=== PATIENT | female | born 1965 | race Caucasian/White ===

== ENCOUNTER → 2016-09-21 | Outpatient (CLI) | payer BC, OTHER ==
[~2016-09-21] MED LIST: AMIL5TAB15 PO; BREX1TAB4 PO; LAMO200T38 PO; LEVO100T7 PO; LTHSR/300 PO; OLAN1TAB5 PO; RANI300T PO; TRAM-10 PO
== END | disposition home or self-care (01) ==
LOC: C.LABBC 09:50
PROVIDERS: ATTEND Psychiatry & Neurology Psychiatry
DX: F31.9 Bipolar disorder, unspecified (principal)

== ENCOUNTER → 2016-11-16 | Outpatient (CLI) | payer BC, OTHER ==
[2016-11-16 10:51] LABS: BASO % 0.3 %; BASO ABS # 0.02 K/uL (0-0.2); COMPLETE YES; EOS % 1.3 %; HEMATOCRIT 36.9 % (37-47); IG% 0.2 %; LYMPH % 29.8 %; LYMPH ABS # 1.81 K/uL (1.2-3.4); MEAN CELL VOLUME 88.9 fL (80-100); MEAN CORPUSCULAR HEMOGLOBIN 29.4 pg (25-34); MEAN CORPUSCULAR HGB CONC 33.1 g/dl (32-36); MEAN PLATELET VOLUME 9.7 fL (7.4-10.4); MONO % 7.4 %; PLATELET COUNT 297 K/uL (130-400); RED BLOOD COUNT 4.15 M/uL (4.2-5.4); WHITE BLOOD COUNT 6.08 K/uL (4.8-10.8)
[2016-11-16 11:11] LABS: ALT/SGPT 27 U/L (12-78); AST/SGOT 14 U/L (15-37); BLOOD UREA NITROGEN 11 mg/dl (7-18); BUN/CREATININE RATIO 7.5 (10-20); CALCIUM 9.4 mg/dl (8.5-10.1); CARBON DIOXIDE 30 mmol/L (21-32); CHLORIDE 108 mmol/L (98-107); GLUCOSE 102 mg/dl (70-99); POTASSIUM 3.9 mmol/L (3.5-5.1); SODIUM 144 mmol/L (136-145)
[2016-11-16 11:22] LABS: CHOLESTEROL 139 mg/dl (0-200); CHOLESTEROL/HDL RATIO 3.2; FERRITIN 409.5 ng/ml (8.0-388.0); HDL CHOLESTEROL 44 mg/dl; LDL CHOLESTEROL CALCULATED 56 mg/dl; THYROID STIMULATING HORMONE 0.198 uIu/ml (0.300-4.500); TRIGLYCERIDES 197 mg/dl (0-150); VERY LOW DENSITY LIPOPROT CALC 39 mg/dl
== END | disposition home or self-care (01) ==
LOC: C.LABBC 10:04
DX: E88.81 Metabolic syndrome and other insulin resistance (principal); E78.5 Hyperlipidemia, unspecified; E03.9 Hypothyroidism, unspecified; N18.3 Chronic kidney disease, stage 3 (moderate); E55.9 Vitamin D deficiency, unspecified; D64.9 Anemia, unspecified

== ENCOUNTER → 2016-11-30 | Outpatient (CLI) | payer BC, OTHER ==
[2016-11-30 13:09] LABS: HEMATOCRIT 38.5 % (37-47); MEAN CELL VOLUME 89.5 fL (80-100); MEAN CORPUSCULAR HEMOGLOBIN 29.5 pg (25-34); MEAN PLATELET VOLUME 9.7 fL (7.4-10.4); PLATELET COUNT 326 K/uL (130-400); WHITE BLOOD COUNT 7.37 K/uL (4.8-10.8)
[2016-11-30 13:23] LABS: BLOOD UREA NITROGEN 14 mg/dl (7-18); BUN/CREATININE RATIO 9.5 (10-20); CALCIUM 9.7 mg/dl (8.5-10.1); CARBON DIOXIDE 27 mmol/L (21-32); CHLORIDE 109 mmol/L (98-107); GLUCOSE 103 mg/dl (70-99); PHOSPHORUS 3.3 mg/dl (2.5-4.9); SODIUM 141 mmol/L (136-145)
[2016-11-30 13:25] LABS: URINE PROTIEN/CREAT RATIO 0.2 (0-0.2); URINE TOTAL PROTEIN 9.6 mg/dl (0-11.9)
[2016-11-30 13:39] LABS: MANUAL MICROSCOPIC REQUIRED? NO; REVIEW REQ? NO; URINE APPEARANCE CLEAR (CLEAR); URINE BILIRUBIN NEG (NEG); URINE COLOR YELLOW; URINE EPITHELIAL CELL AUTO 20-30 /lpf (0-5); URINE NITRITE NEG (NEG); URINE PH 7.5 (4.5-7.5); UROBILINOGEN NEG (NEG)
== END | disposition home or self-care (01) ==
LOC: C.LABBC 11:17
PROVIDERS: ATTEND Internal Medicine Nephrology
DX: E55.9 Vitamin D deficiency, unspecified (principal); D64.9 Anemia, unspecified; N18.3 Chronic kidney disease, stage 3 (moderate)

== ENCOUNTER → 2016-12-09 | Outpatient (CLI) | payer BC, OTHER | END | disposition home or self-care (01) | LOC: C.LABBC 09:20 | PROVIDERS: ATTEND Psychiatry & Neurology Psychiatry | DX: F31.9 Bipolar disorder, unspecified (principal) ==

== ENCOUNTER → 2017-04-10 | Outpatient (CLI) | payer BC, OTHER | END | disposition home or self-care (01) | LOC: C.CPL 11:15 | PROVIDERS: ATTEND Psychiatry & Neurology Psychiatry | DX: F31.9 Bipolar disorder, unspecified (principal); Z79.899 Other long term (current) drug therapy ==

== ENCOUNTER → 2017-05-02 | Outpatient (CLI) | payer BC, OTHER ==
[2017-05-02 13:43] LABS: ALB/GLOB RATIO 1.1 (0.9-2); ALKALINE PHOSPHATASE 96 U/L (45-117); ALT/SGPT 25 U/L (12-78); AST/SGOT 17 U/L (15-37); BLOOD UREA NITROGEN 14 mg/dl (7-18); BUN/CREATININE RATIO 9.3 (10-20); CALCIUM 9.6 mg/dl (8.5-10.1); CARBON DIOXIDE 27 mmol/L (21-32); CHLORIDE 109 mmol/L (98-107); GLUCOSE 137 mg/dl (70-99); SODIUM 142 mmol/L (136-145)
== END | disposition home or self-care (01) ==
LOC: C.LAB 12:08
PROVIDERS: ATTEND Psychiatry & Neurology Psychiatry
DX: F31.9 Bipolar disorder, unspecified (principal); Z51.81 Encounter for therapeutic drug level monitoring; Z79.899 Other long term (current) drug therapy

== ENCOUNTER → 2017-06-02 | Outpatient (CLI) | payer BC, OTHER | END | disposition home or self-care (01) | LOC: C.PATH 17:16 | PROVIDERS: ATTEND Obstetrics & Gynecology | DX: N84.1 Polyp of cervix uteri (principal) ==

== ENCOUNTER → 2017-06-21 | Outpatient (CLI) | payer BC, OTHER ==
[2017-06-21 12:55] LABS: HEMATOCRIT 37.6 % (37-47); MEAN CELL VOLUME 89.1 fL (80-100); MEAN CORPUSCULAR HEMOGLOBIN 29.9 pg (25-34); MEAN CORPUSCULAR HGB CONC 33.5 g/dl (32-36); MEAN PLATELET VOLUME 9.7 fL (7.4-10.4); PLATELET COUNT 253 K/uL (130-400); RED BLOOD COUNT 4.22 M/uL (4.2-5.4); WHITE BLOOD COUNT 7.05 K/uL (4.8-10.8)
[2017-06-21 13:02] LABS: ALT/SGPT 21 U/L (12-78); BLOOD UREA NITROGEN 17 mg/dl (7-18); BUN/CREATININE RATIO 10.9 (10-20); CALCIUM 9.4 mg/dl (8.5-10.1); CARBON DIOXIDE 27 mmol/L (21-32); CREATININE 1.52 mg/dl (0.60-1.20); GLUCOSE 113 mg/dl (70-99)
[2017-06-21 13:45] LABS: ALKALINE PHOSPHATASE 81 U/L (45-117); AST/SGOT 16 U/L (15-37); CHLORIDE 106 mmol/L (98-107); POTASSIUM 3.9 mmol/L (3.5-5.1); SODIUM 142 mmol/L (136-145)
== END | disposition home or self-care (01) ==
LOC: C.LABBC 10:33
PROVIDERS: ATTEND Internal Medicine Nephrology
DX: N18.3 Chronic kidney disease, stage 3 (moderate) (principal); R35.8 Other polyuria; D64.9 Anemia, unspecified; E55.9 Vitamin D deficiency, unspecified

== ENCOUNTER 2017-11-12 13:03 | Emergency (ER) | payer BC, OTHER ==
[~2017-11-12 13:03] MED LIST changes: +LAMO200T35 PO; -LAMO200T38 PO
[2017-11-12 13:23] VITALS: TEMP 36.8
[2017-11-12] MEDS ORDERED: ASPI325T39 PO (14:08)
[2017-11-12] MEDS ORDERED: RSP2 PO (14:08)
[2017-11-12 14:32] LABS: BASO % 0.4 %; BASO ABS # 0.02 K/uL (0-0.2); EOS % 0.4 %; EOS ABS # 0.02 K/uL (0-0.5); HEMATOCRIT 38.2 % (37-47); HEMOGLOBIN 12.9 g/dL (12.0-16.0); IG# 0.02 K/uL (0.00-0.02); LYMPH ABS # 1.42 K/uL (1.2-3.4); MEAN CELL VOLUME 86.4 fL (80-100); MEAN CORPUSCULAR HEMOGLOBIN 29.2 pg (25-34); MEAN CORPUSCULAR HGB CONC 33.8 g/dl (32-36); MEAN PLATELET VOLUME 9.5 fL (7.4-10.4); MONO ABS # 0.44 K/uL (0.11-0.59); NEUT % 64.8 %; NEUT ABS # 3.55 K/uL (1.4-6.5); PLATELET COUNT 258 K/uL (130-400); RED CELL DISTRIBUTION WIDTH CV 13.1 % (11.5-14.5); RED CELL DISTRIBUTION WIDTH SD 41.7 fL (36.4-46.3); WHITE BLOOD COUNT 5.47 K/uL (4.8-10.8)
[2017-11-12 14:50] LABS: ALBUMIN 4.2 gm/dl (3.4-5.0); ALT/SGPT 24 U/L (12-78); AST/SGOT 16 U/L (15-37); BLOOD UREA NITROGEN 14 mg/dl (7-18); CALCIUM 9.2 mg/dl (8.5-10.1); CARBON DIOXIDE 23 mmol/L (21-32); GLUCOSE 122 mg/dl (70-99); POTASSIUM 3.5 mmol/L (3.5-5.1); SODIUM 141 mmol/L (136-145)
[2017-11-12 15:00] LABS: ALKALINE PHOSPHATASE 86 U/L (45-117); TOTAL PROTEIN 7.9 gm/dl (6.4-8.2)
--- NOTE | 2017-11-12 16:54 | EMERGENCY ROOM VISIT NOTE ---
History Report prepared by Atif: Oswaldo Heredia Under the Supervision of: Dr. Howie Russell M.D. First contact with patient: 13:29 Chief Complaint: MENTAL HEALTH EVALUATION Stated Complaint: ANXIETY,SUICIDAL THOUGHTS History of Present Illness The patient is a 52 year old female who presents to the Emergency Room after referral from her psychiatrist Dr. Fraser, with concern of her worsening mental status for the past week. Per the [facility], the patient visited with Dr. Fraser today and noted that she was "having battles within herself about if she should overdose on her medications or not." These thoughts were present yesterday. The patient admits that she stopped taking her medications 6-7 weeks ago. She stopped taking them because she notes that she was not feeling better while taking them. She stopped all of her medications, and then resumed The Lamictal and Respiradone the next day. She is still not taking her [place]. The patient notes that she is not currently having thoughts of hurting herself, and that she is willing to come into the hospital voluntarily. She denies any other physical symptoms such as chest pain, shortness of breath, nausea, vomiting, diarrhea, or cough. Dr. Fraser does believe the patient needs an inpatient stay. Source of History: patient, other ([facility] [employer]) Onset: Past week Position: head Quality: other (Mental status/suicidal thoughts) Timing: worsening Associated Symptoms: No cough, No chest pain, No SOB, No nausea, No vomiting , No diarrhea Review of Systems See HPI for pertinent positives and negatives. A total of ten systems were reviewed and were otherwise negative. Past Medical & Surgical Medical Problems: (1) Bipolar disorder (2) Borderline personality disorder (3) Esophageal Reflux (4) Hypothyroidism Nos (5) Macular degeneration (6) Sleep apnea Surgical Problems: (1) H/O section (2) S/P cholecystectomy Family History FH: bipolar disorder FH: heart disease FHx: cancer Hypertension Social History Smoking Status: Never Smoker Marital Status: Occupation Status: employed Current/Historical Medications Scheduled Amiloride Hcl (Amiloride Hcl), 5 MG PO DAILY Aspirin (Aspirin Ec), 325 MG PO DAILY Lamotrigine (Lamictal), 200 MG PO QAM Levothyroxine Sodium (Levothyroxine Sodium), 100 MCG PO DAILY Ranitidine Hcl (Zantac), 300 MG PO BID Risperidone (Risperidone), 3 MG PO HS Tramadol (Ultram), 50 MG PO HS Allergies Coded Allergies: Gabapentin (Verified Allergy, Unknown, makes her manic, 01/14/16) Physical Exam Vital Signs Date Time Temp Pulse Resp B/P (MAP) Pulse Ox O2 Delivery O2 Flow Rate FiO2 11/12/17 15:59 81 15 128/78 97 Room Air 11/12/17 13:23 36.8 94 20 98 Physical Exam GENERAL: Awake, alert, anxious-appearing, makes poor eye contact. HENT: Normocephalic, atraumatic. Dry MM. EYES: Normal conjunctiva. Sclera non-icteric. NECK: Supple. No nuchal rigidity. FROM. No JVD. RESPIRATORY: Clear to auscultation. CARDIAC: Regular rate, normal rhythm. Extremities warm and well perfused. Pulses equal. ABDOMEN: Soft, non-distended. No tenderness to palpation. No rebound or guarding. No masses. RECTAL: Deferred. MUSCULOSKELETAL: Chest examination reveals no tenderness. The back is symmetrical on inspection without obvious abnormality. There is no CVA tenderness to palpation. No joint edema. LOWER EXTREMITIES: Calves are equal size bilaterally and non-tender. No edema. No discoloration. NEURO: Normal sensorium. No sensory or motor deficits noted. SKIN: No rash or jaundice noted. PSYCH: Positive SI, Negative HI, Negative hallucinations. Medical Decision & Procedures Laboratory Results 11/12/17 14:19 Red Blood Count 4.42, Mean Corpuscular Volume 86.4, Mean Corpuscular Hemoglobin 29.2, Mean Corpuscular Hemoglobin Concent 33.8, Mean Platelet Volume 9.5, Neutrophils (%) (Auto) 64.8, Lymphocytes (%) (Auto) 26.0, Monocytes (%) (Auto) 8.0, Eosinophils (%) (Auto) 0.4, Basophils (%) (Auto) 0.4, Neutrophils # (Auto) 3.55, Lymphocytes # (Auto) 1.42, Monocytes # (Auto) 0.44, Eosinophils # (Auto) 0.02, Basophils # (Auto) 0.02 11/12/17 14:19 Test 11/12/17 14:19 11/12/17 14:23 11/12/17 16:27 White Blood Count 5.47 K/uL (4.8-10.8) Red Blood Count 4.42 M/uL (4.2-5.4) Hemoglobin 12.9 g/dL (12.0-16.0) Hematocrit 38.2 % (37-47) Mean Corpuscular Volume 86.4 fL (80-100) Mean Corpuscular Hemoglobin 29.2 pg (25-34) Mean Corpuscular Hemoglobin Concent 33.8 g/dl (32-36) Platelet Count 258 K/uL (130-400) Mean Platelet Volume 9.5 fL (7.4-10.4) Neutrophils (%) (Auto) 64.8 % Lymphocytes (%) (Auto) 26.0 % Monocytes (%) (Auto) 8.0 % Eosinophils (%) (Auto) 0.4 % Basophils (%) (Auto) 0.4 % Neutrophils # (Auto) 3.55 K/uL (1.4-6.5) Lymphocytes # (Auto) 1.42 K/uL (1.2-3.4) Monocytes # (Auto) 0.44 K/uL (0.11-0.59) Eosinophils # (Auto) 0.02 K/uL (0-0.5) Basophils # (Auto) 0.02 K/uL (0-0.2) RDW Standard Deviation 41.7 fL (36.4-46.3) RDW Coefficient of Variation 13.1 % (11.5-14.5) Immature Granulocyte % (Auto) 0.4 % Immature Granulocyte # (Auto) 0.02 K/uL (0.00-0.02) Anion Gap 8.0 mmol/L (3-11) Estimated GFR () 50.6 Estimated GFR (Non- 43.7 BUN/Creatinine Ratio 10.0 (10-20) Calcium Level 9.2 mg/dl (8.5-10.1) Total Bilirubin 0.3 mg/dl (0.2-1) Direct Bilirubin < 0.1 mg/dl (0-0.2) Aspartate Amino Transf (AST/SGOT) 16 U/L (15-37) Alanine Aminotransferase (ALT/SGPT) 24 U/L (12-78) Alkaline Phosphatase 86 U/L (45-117) Total Protein 7.9 gm/dl (6.4-8.2) Albumin 4.2 gm/dl (3.4-5.0) Globulin 3.7 gm/dl (2.5-4.0) Albumin/Globulin Ratio 1.1 (0.9-2) Thyroid Stimulating Hormone (TSH) 0.047 uIu/ml (0.300-4.500) Free Thyroxine 1.42 ng/dl (0.80-1.60) [place] Level < 0.2 mMOL/L (0.6-1.2) Ethyl Alcohol mg/dL < 3.0 mg/dl (0-3) Free Triiodothyronine 3.60 pg/ml (2.30-4.20) Urine Color YELLOW Urine Appearance CLEAR (CLEAR) Urine pH 5.5 (4.5-7.5) Urine Specific [place] 1.011 (1.000-1.030) Urine Protein NEG (NEG) Urine Glucose (UA) NEG (NEG) Urine Ketones NEG (NEG) Urine Occult Blood NEG (NEG) Urine Nitrite NEG (NEG) Urine Bilirubin NEG (NEG) Urine Urobilinogen NEG (NEG) Urine Leukocyte Esterase SMALL (NEG) Urine WBC (Auto) 1-5 /hpf (0-5) Urine RBC (Auto) 0-4 /hpf (0-4) Urine Hyaline Casts (Auto) 0 /lpf (0-5) Urine Epithelial Cells (Auto) 20-30 /lpf (0-5) Urine Bacteria (Auto) NEG (NEG) Urine Opiates Screen NEG (NEG) Urine Methadone, Qualitative NEG (NEG) Urine Barbiturates NEG (NEG) Urine Phencyclidine (PCP) Level NEG (NEG) Ur Amphetamine/Methamphetamine NEG (NEG) MDMA (Ecstasy) Screen NEG (NEG) Urine Benzodiazepines Screen NEG (NEG) Urine Cocaine Metabolite NEG (NEG) Urine Marijuana (THC) NEG (NEG) Laboratory results reviewed by pa ED Course 1335: The patient was evaluated in room A5. A complete history and physical exam was performed. 1700: Patient has been medically cleared. The patient will be evaluated by the [facility] and a bedsearch will ensue. 1800: The patient will be signed out to Dr. Estrada at change of shift. Medical Decision I reviewed the patient's past medical history, medications, and the nursing notes as described above. Differential diagnosis: Etiologies such as mood disorder, infection, hypoglycemia, electrolyte abnormalities, cardiac sources, intracerebral event, toxicologic, neurologic, as well as others were entertained. The patient is a 54-year-old woman with a past medical history of bipolar disorder who presents emergency department with worsening depression and intermittent SI sent by her outpatient provider concern for worsening functional status in the setting of being noncompliant with her medications for several weeks per hpi. The patient is anxious appearing with poor eye contact, no acute distress afebrile stable vital signs. Labs unremarkable. Patient reports intermittent suicidal thoughts but denies any clear plan to act these out. the patient's worsening symptoms and inpatient psychiatric admission is reasonable. She is agreeable for voluntary admission. [place] referral pending. Of note, given the patient's recurring SI in the setting of her BPD, patient would meet criteria for 302 if she changes her mind. Patient signed out to Dr. Estrada. Medication Reconcilliation Current Medication List: was personally reviewed by me Blood Pressure Screening Patient's blood pressure: Normal blood pressure Impression Primary Impression: Suicidal ideation Additional Impression: Bipolar disorder Scribe Attestation The scribe's documentation has been prepared under my direction and personally reviewed by me in its entirety. I confirm that the note above accurately reflects all work, treatment, procedures, and medical decision making performed by me. Departure Information Dispostion Still a Patient Referrals Kolby Saenz Jr,D.O. (PCP) Patient Instructions [facility] Problem Qualifiers
--- NOTE | 2017-11-12 19:15 | EMERGENCY ROOM VISIT NOTE ---
ED Visit Note First contact with patient: 19:14 The patient was taken in signout from Dr. nielsen at the change of shift. Please see that note for details. The patient was pending psychiatric voluntary placement. The patient was accepted voluntarily. She was given her evening medications of tramadol, Risperdal and she also requested her Zantac. Her time in the emergency department was uneventful. There were no issues. The patient was transferred.
[2017-11-12] MEDS ORDERED: TRAMADOL HCL 50 MG TAB PO STA (23:44)
[2017-11-12] MEDS ORDERED: RANITIDINE HCL 150 MG TAB PO ONE (23:45)
[2017-11-12] MEDS ORDERED: RISPERIDONE 1 MG TAB PO ONE (23:45)
[2017-11-13 00:09] VITALS: BP 144/85; PULSE 87; O2SAT 97
== END 2017-11-13 00:05 | disposition short-term general hospital (02) ==
LOC: C.EDB 13:04 → C.EDA 11-13 00:05
DX: R45.851 Suicidal ideations (principal); F31.9 Bipolar disorder, unspecified; E03.9 Hypothyroidism, unspecified; G47.30 Sleep apnea, unspecified; Z79.82 Long term (current) use of aspirin; K21.9 Gastro-esophageal reflux disease without esophagitis; Z88.8 Allergy status to other drugs, medicaments and biological substances

== ENCOUNTER → 2017-11-27 | Outpatient (CLI) | payer BC, OTHER ==
[~2017-11-27] MED LIST changes: +ASPI325T39 PO; -BREX1TAB4 PO; -LTHSR/300 PO; -OLAN1TAB5 PO; +RSP2 PO
--- NOTE | 2017-11-27 17:44 | DIAGNOSTIC IMAGING REPORT ---
MRI OF THE BRAIN WITHOUT IV CONTRAST CLINICAL HISTORY: Generalized weakness. COMPARISON STUDY: MRI of the brain dated 06/15/2015. TECHNIQUE: MRI of the brain was performed utilizing various T1 and T2-weighted sequences in the axial, sagittal, and coronal planes. IV contrast was not administered for this examination. FINDINGS: Brain parenchyma: There is minimal periventricular microangiopathic change. There is no hemorrhage or mass effect. There is no restricted diffusion to suggest acute ischemia. [place]-white matter differentiation is preserved. No extra-axial fluid collection is seen. The cerebellar tonsils are normal in configuration. Ventricles, sulci, and cisterns: Normal in configuration. Pituitary and sella: Unremarkable. Intracranial vasculature: Normal flow voids are maintained at the skull base. Orbits: The bony orbits are grossly intact. Orbital contents are normal in appearance. Sinuses and mastoids: Clear. Calvarium: Unremarkable. Cervical cord: Partially visualized cervical spinal cord is normal in morphology and signal intensity. IMPRESSION: No acute intracranial abnormality. Electronically signed by: Kevin Brady M.D. 11/27/2017 5:43 PM Dictated Date/Time: 11/27/2017 5:30 PM
== END | disposition home or self-care (01) ==
LOC: C.MRIBC 16:46
DX: M62.81 Muscle weakness (generalized) (principal); R20.2 Paresthesia of skin

== ENCOUNTER → 2017-12-16 | Outpatient (CLI) | payer BC, OTHER ==
--- NOTE | 2017-12-17 14:20 | MAMMOGRAPHY REPORT ---
BILATERAL DIGITAL SCREENING MAMMOGRAM TOMOSYNTHESIS WITH CAD: 12/16/2017 CLINICAL HISTORY: Routine screening. Patient has no complaints. TECHNIQUE: Breast tomosynthesis in addition to standard 2D mammography was performed. Current study was also evaluated with a Computer Aided Detection (CAD) system. COMPARISON: Comparison is made to exams dated: 07/30/2013 mammogram, 05/29/2011 ultrasound, 05/23/2011 mammogram - [facility], 05/01/2007, and 04/28/2007. BREAST COMPOSITION: The tissue of both breasts is heterogeneously dense, which may obscure small mas ses. FINDINGS: There is a possible cluster of microcalcifications in the 6:00 to 7:00 middle one third of the left breast for which additional spot magnification views are recommended. There are multiple bilateral circumscribed masses scattered in the breasts, most likely representing fibrocystic change/multiple cysts which is a typically benign mammographic pattern. No suspicious spi culated or irregular mass, asymmetry or architectural distortion identified. IMPRESSION: ACR BI-RADS CATEGORY 0: INCOMPLETE EVALUATION: NEED ADDITIONAL IMAGING EVALUATION The possible cluster of microcalcifications in the 6:00 to 7:00 left breast needs additional evaluati on. The patient will be called to schedule an appointment. Approximately 10% of breast cancers are not detected with mammography. A negative mammographic report should not delay biopsy if a clinically suggestive mass is present. Starla Nobles M.D. ay/:12/16/2017 19:56:58 Clay Thrower: Brianna MONTANEZ)(Darci), [facility] letter sent: Addl Imaging 0 BI-RADS Code: ACR BI-RADS Category 0: Incomplete Evaluation: Need Additional Imaging Evaluation
== END | disposition home or self-care (01) ==
LOC: C.MAMM 10:20
DX: Z12.31 Encounter for screening mammogram for malignant neoplasm of breast (principal); N64.89 Other specified disorders of breast

== ENCOUNTER 2023-01-16 12:53 | Inpatient (IN) ==
[2023-01-16 13:39] LABS: Appearance Urine Clear (Clear); Bilirubin Urine Negative (Negative); Blood Urine Negative (Negative); Color Urine Yellow; Glucose Urine UA Negative (Negative); Ketones Urine Negative (Negative); Leukocyte Esterase Urine Negative (Negative); Nitrite Urine Negative (Negative); Protein Urine Negative (Negative); Specific Gravity Urine 1.012 (1.000-1.030); Urobilinogen Urine Negative (Negative)
[2023-01-16] MEDS ORDERED: LORazepam 1 MG TAB SL STA (13:47)
[2023-01-16 14:22] LABS: Amphetamines+Metham, Urine Neg (Neg); Barbiturates, Urine Neg (Neg); Benzodiazepine, Urine Neg (Neg); Cocaine, Urine Neg (Neg); MDMA (Ecstacy), Urine Neg (Neg); Methadone, Urine Neg (Neg); Opiate, Urine Neg (Neg); Phencyclidine, Urine Neg (Neg)
--- NOTE | 2023-01-16 14:39 | Emergency Department Note ---
History of Present Illness General Chief complaint: Mental Health Evaluation Stated complaint: AGITATED,TROUBLE SLEEPING Time Seen by Provider: 01/16/23 13:18 History of Present Illness Provider complaint: Mental health evaluation Onset (ago): month(s) 2 Maximum Pain Intensity: 2 58-year-old female presents emergency department for mental health evaluation. Patient reports she has been increasingly agitated over the last 2 months. She reports she has been having several medication changes over the last 2 months. She was referred here by her psychiatrist. Patient denies any suicidal or homicidal ideation. Home Medications Medication Instructions Recorded Confirmed Type levothyroxine 50 mcg tablet 50 mcg PO DAILY 05/18/19 01/15/23 History lumateperone 42 mg capsule 42 mg PO DAILY 03/30/20 01/15/23 History (Caplyta) prazosin 2 mg capsule 3 mg PO QPM 04/04/21 01/15/23 History hydroxyzine pamoate 25 mg capsule 25 mg PO BID PRN Anxiety 08/29/21 01/15/23 History (Vistaril) lamotrigine 200 mg tablet 200 mg PO PM 08/29/21 01/15/23 History lamotrigine 25 mg tablet 50 mg PO .am 08/29/21 01/15/23 History diclofenac sodium 1 % topical gel 2 g topical QID #100 grams 03/14/22 01/15/23 Rx lorazepam 0.5 mg tablet (Ativan) 0.5 mg PO Q8H PRN Anxiety 08/07/22 01/15/23 History linaclotide 145 mcg capsule 145 mcg PO DAILY PRN constipation 09/10/22 01/15/23 Rx (Linzess) #30 caps ferrous sulfate 325 mg (65 mg 325 mg PO .COMPLEX #30 tabs 11/05/22 01/15/23 Rx iron) tablet peg 3350-electrolytes 236 240 ml PO Q10M #4,000 mL 11/26/22 01/15/23 Rx gram-22.74 gram-6.74 gram-5.86 gram solution (GaviLyte-G) vibegron 75 mg tablet (Gemtesa) 75 mg PO DAILY #90 tabs 11/28/22 01/15/23 Rx Magic Mouthwash 300 mL mouthwash 5 ml mucous membrane .q 4 hours 12/26/22 01/15/23 Rx PRN sores in mouth #300 mL tramadol 50 mg tablet 100 mg PO HS 30 days #60 tabs 01/03/23 01/15/23 Rx Allergies Allergy/AdvReac Type Severity Reaction Status Date / Time gabapentin Allergy Unknown makes her Verified 01/08/23 11:27 manic Latuda TABS Allergy Mild Hallucinati Uncoded 01/08/23 11:27 ng SEROquel XR TB24 Allergy Uncoded 01/08/23 11:27 Past Med/Surg History Medical History Cholecystectomy planned Chronic kidney disease, stage III (moderate) GERD (gastroesophageal reflux disease) Hypothyroidism MONICO (obstructive sleep apnea) RLS (restless legs syndrome) Schizophrenia, paranoid, chronic with acute exacerbation Vitamin D deficiency Surgical History History of delivery History of tonsillectomy [place] teeth extracted Family History Father Hypertension Heart disease Mother Afib Stroke Crohn's disease Breast cancer Alzheimer disease Grandfather Stroke Prostate cancer Skin cancer (melanoma) Grandmother Cancer blood cancer Bipolar disorder Grandmother (Maternal) Alzheimer disease Breast cancer Grandfather (Paternal) Hypertension Stroke Grandfather (Maternal) Lung cancer Prostate cancer Skin cancer (melanoma) Denies family history of Ovarian cancer Diabetes Myocardial infarction Colorectal cancer Social History Smoking Status: Never smoker Second Hand Exposure: No; Do You Dip or Chew Tobacco: No; Hx Alcohol Use: No Hx Substance Use: No Preferred Language: [place] Communication Ability: Effective Visual Impairment: Limited Hearing Ability: Normal marital status: Current Living Situation: Alone current occupational status: employed current occupation: [employer] How many Children do You have: 2 Feels Safe at Home: Yes Childhood Exposure to Second-Hand Smoke: No Diet: regular caffeine: No Dental Care, Regularly: No Physical Activity Frequency: Does not Exercise Seatbelt Use: always Sunscreen Use: Yes (sometimes) Gender Identity: Female Assistive Devices: Glasses Physical Exam Vital Signs Vital Signs - 24 hr 01/16/23 12:55 01/16/23 12:53 Temperature 37.0 C Temperature Source Skin Pulse Rate 130 H Respiratory Rate 20 Blood Pressure 151/79 H Blood Pressure Mean 103 Pulse Oximetry 98 Oxygen Delivery Method Room Air Room Air Sepsis Recent Fever Within 48 Hours No Sepsis New/Unexplained Change in Mental Status No Sepsis Action Taken by Nursing No Action Required Physical Exam HENT: Exam performed. - Head: Normocephalic and atraumatic. EYES: Conjunctivae and EOM are normal. Right eye exhibits no discharge. Left eye exhibits no discharge. No scleral icterus. NECK: Normal range of motion. Neck supple. No JVD present. NEURO: Motor and sensation grossly intact. SKIN: Skin is warm and dry. He is not diaphoretic. PSYCH: Patient appears very angry and agitated. No suicidal homicidal ideation. Course Course 1318: The patient was evaluated in room A6. A complete history and physical exam was performed 1621: Patient medically cleared patient admitted to 3 S. Administered Medications Discontinued Medications Lorazepam (Lorazepam 1 Mg Tab) 1 mg SL NOW STA Stop: 01/16/23 13:48 Last Admin: 01/16/23 13:58 Dose: 1 mg Documented By: HAO Medical Decision Making Medical Records Attestation: I reviewed the patient's medical records. External medical records reviewed. Patient was seen in the emergency department yesterday for a mental health evaluation also. The patient was evaluated by the mental health rehabilitation case coordinator and felt to be a good patient for inpatient management but the patient became frustrated with no psychiatric bed was available and became frustrated with the bed search process and requested discharge and the patient was discharged in stable condition last night. Laboratory Data Attestation: I reviewed the patient's lab results. 01/16/23 14:37 01/16/23 14:37 Lab Results 01/16/23 01/16/23 01/16/23 Range/Units 13:10 13:10 14:37 WBC 9.70 (4.8-10.8) K/ul RBC 4.77 (4.20-5.40) M/uL Hgb 13.9 (12.0-16.0) g/dl Hct 39.8 (37.0-47.0) % MCV 83.4 (80.0-100.0) fL MCH 29.1 (25.0-34.0) pg MCHC 34.9 (32.0-36.0) g/dL RDW Std Deviation 38.7 (36.4-46.3) fL RDW Coeff of Matt 12.8 (11.5-14.5) % Plt Count 378 (130-400) K/uL MPV 9.8 (9.4-12.4) fL Immature Gran % (Auto) 0.3 % Neut % (Auto) 75.8 % Lymph % (Auto) 15.9 % [place] % (Auto) 7.5 % Eos % (Auto) 0.1 % Baso % (Auto) 0.4 % Neut # (Auto) 7.35 H (1.40-6.50) K/uL Lymph # (Auto) 1.54 (1.2-3.4) K/uL [place] # (Auto) 0.73 H (0.11-0.59) K/uL Eos # (Auto) 0.01 (0-0.50) K/uL Baso # (Auto) 0.04 (0-0.2) K/uL Immature Gran # (Auto) 0.03 (0.01-0.20) K/uL Sodium (136-145) mmol/L Potassium (3.5-5.1) mmol/L Chloride (98-107) mmol/L Carbon Dioxide (21-32) mmol/L Anion Gap (3-11) BUN (6-23) mg/dl Creatinine (0.6-1.2) mg/dl Est Cr Clr Drug Dosing ml/min Est GFR ( Amer) ml/min Est GFR (Non-Af Amer) ml/min BUN/Creatinine Ratio (10-20) Glucose (70-99(Fasting)) mg/dl Calcium (8.6-10.3) mg/dl Total Bilirubin (0.2-1.0) mg/dl AST (13-39) U/L ALT (7-52) U/L Alkaline Phosphatase (34-104) U/L Total Protein (6.0-8.3) gm/dl Albumin (3.4-5.0) gm/dl Globulin (2.5-4.0) gm/dl Albumin/Globulin Ratio (0.9-2) TSH (0.300-4.500) uIu/ml Urine Color Yellow Urine Appearance Clear (Clear) Urine pH 8.0 H (4.5-7.5) Ur Specific [place] 1.012 (1.000-1.030) Urine Protein Negative (Negative) Urine Glucose (UA) Negative (Negative) Urine Ketones Negative (Negative) Urine Blood Negative (Negative) Urine Nitrite Negative (Negative) Urine Bilirubin Negative (Negative) Urine Urobilinogen Negative (Negative) Ur Leukocyte Esterase Negative (Negative) Salicylates (3.0-30) mg/dl Urine Opiates Screen Neg (Neg) Ur Methadone, Qual Neg (Neg) Acetaminophen (10-30) ug/ml Urine Barbiturates Neg (Neg) Ur Phencyclidine (PCP) Neg (Neg) U Amphetamin/Meth Scrn Neg (Neg) MDMA (Ecstasy) Screen Neg (Neg) U Benzodiazepines Scrn Neg (Neg) Ur Cocaine Metabolite Neg (Neg) U Marijuana (THC) Screen Neg (Neg) Ethyl Alcohol mg/dL (<10.0) mg/dl SARS-CoV-2, RNA, NAAT (NEGATIVE) 01/16/23 01/16/23 01/16/23 Range/Units 14:37 14:37 14:37 WBC (4.8-10.8) K/ul RBC (4.20-5.40) M/uL Hgb (12.0-16.0) g/dl Hct (37.0-47.0) % MCV (80.0-100.0) fL MCH (25.0-34.0) pg MCHC (32.0-36.0) g/dL RDW Std Deviation (36.4-46.3) fL RDW Coeff of Matt (11.5-14.5) % Plt Count (130-400) K/uL MPV (9.4-12.4) fL Immature Gran % (Auto) % Neut % (Auto) % Lymph % (Auto) % [place] % (Auto) % Eos % (Auto) % Baso % (Auto) % Neut # (Auto) (1.40-6.50) K/uL Lymph # (Auto) (1.2-3.4) K/uL [place] # (Auto) (0.11-0.59) K/uL Eos # (Auto) (0-0.50) K/uL Baso # (Auto) (0-0.2) K/uL Immature Gran # (Auto) (0.01-0.20) K/uL Sodium 140 (136-145) mmol/L Potassium 3.9 (3.5-5.1) mmol/L Chloride 108 H (98-107) mmol/L Carbon Dioxide 20 L (21-32) mmol/L Anion Gap 12 H (3-11) BUN 19 (6-23) mg/dl Creatinine 1.34 H (0.6-1.2) mg/dl Est Cr Clr Drug Dosing 41.9 ml/min Est GFR ( Amer) 51.2 ml/min Est GFR (Non-Af Amer) 44.2 ml/min BUN/Creatinine Ratio 14.2 (10-20) Glucose 92 (70-99(Fasting)) mg/dl Calcium 10.5 H (8.6-10.3) mg/dl Total Bilirubin 0.5 (0.2-1.0) mg/dl AST 21 (13-39) U/L ALT 17 (7-52) U/L Alkaline Phosphatase 96 (34-104) U/L Total Protein 8.5 H (6.0-8.3) gm/dl Albumin 4.7 (3.4-5.0) gm/dl Globulin 3.8 (2.5-4.0) gm/dl Albumin/Globulin Ratio 1.2 (0.9-2) TSH 0.914 (0.300-4.500) uIu/ml Urine Color Urine Appearance (Clear) Urine pH (4.5-7.5) Ur Specific [place] (1.000-1.030) Urine Protein (Negative) Urine Glucose (UA) (Negative) Urine Ketones (Negative) Urine Blood (Negative) Urine Nitrite (Negative) Urine Bilirubin (Negative) Urine Urobilinogen (Negative) Ur Leukocyte Esterase (Negative) Salicylates < 3.0 L (3.0-30) mg/dl Urine Opiates Screen (Neg) Ur Methadone, Qual (Neg) Acetaminophen < 3 L (10-30) ug/ml Urine Barbiturates (Neg) Ur Phencyclidine (PCP) (Neg) U Amphetamin/Meth Scrn (Neg) MDMA (Ecstasy) Screen (Neg) U Benzodiazepines Scrn (Neg) Ur Cocaine Metabolite (Neg) U Marijuana (THC) Screen (Neg) Ethyl Alcohol mg/dL (<10.0) mg/dl SARS-CoV-2, RNA, NAAT (NEGATIVE) 01/16/23 01/16/23 Range/Units 14:37 14:37 WBC (4.8-10.8) K/ul RBC (4.20-5.40) M/uL Hgb (12.0-16.0) g/dl Hct (37.0-47.0) % MCV (80.0-100.0) fL MCH (25.0-34.0) pg MCHC (32.0-36.0) g/dL RDW Std Deviation (36.4-46.3) fL RDW Coeff of Matt (11.5-14.5) % Plt Count (130-400) K/uL MPV (9.4-12.4) fL Immature Gran % (Auto) % Neut % (Auto) % Lymph % (Auto) % [place] % (Auto) % Eos % (Auto) % Baso % (Auto) % Neut # (Auto) (1.40-6.50) K/uL Lymph # (Auto) (1.2-3.4) K/uL [place] # (Auto) (0.11-0.59) K/uL Eos # (Auto) (0-0.50) K/uL Baso # (Auto) (0-0.2) K/uL Immature Gran # (Auto) (0.01-0.20) K/uL Sodium (136-145) mmol/L Potassium (3.5-5.1) mmol/L Chloride (98-107) mmol/L Carbon Dioxide (21-32) mmol/L Anion Gap (3-11) BUN (6-23) mg/dl Creatinine (0.6-1.2) mg/dl Est Cr Clr Drug Dosing ml/min Est GFR ( Amer) ml/min Est GFR (Non-Af Amer) ml/min BUN/Creatinine Ratio (10-20) Glucose (70-99(Fasting)) mg/dl Calcium (8.6-10.3) mg/dl Total Bilirubin (0.2-1.0) mg/dl AST (13-39) U/L ALT (7-52) U/L Alkaline Phosphatase (34-104) U/L Total Protein (6.0-8.3) gm/dl Albumin (3.4-5.0) gm/dl Globulin (2.5-4.0) gm/dl Albumin/Globulin Ratio (0.9-2) TSH (0.300-4.500) uIu/ml Urine Color Urine Appearance (Clear) Urine pH (4.5-7.5) Ur Specific [place] (1.000-1.030) Urine Protein (Negative) Urine Glucose (UA) (Negative) Urine Ketones (Negative) Urine Blood (Negative) Urine Nitrite (Negative) Urine Bilirubin (Negative) Urine Urobilinogen (Negative) Ur Leukocyte Esterase (Negative) Salicylates (3.0-30) mg/dl Urine Opiates Screen (Neg) Ur Methadone, Qual (Neg) Acetaminophen (10-30) ug/ml Urine Barbiturates (Neg) Ur Phencyclidine (PCP) (Neg) U Amphetamin/Meth Scrn (Neg) MDMA (Ecstasy) Screen (Neg) U Benzodiazepines Scrn (Neg) Ur Cocaine Metabolite (Neg) U Marijuana (THC) Screen (Neg) Ethyl Alcohol mg/dL < 10.0 (<10.0) mg/dl SARS-CoV-2, RNA, NAAT NEGATIVE (NEGATIVE) MDM Narrative 1318: The patient was evaluated in room A6. A complete history and physical exam was performed 1621: Patient medically cleared patient admitted to 3 S. Impression & Plan Bipolar 1 disorder Discharge Plan Visit Data Chief Complaint: Mental Health Evaluation Stated Complaint: AGITATED,TROUBLE SLEEPING ED Provider: Harley Joyce Discharge Problem: Bipolar 1 disorder Patient Disposition: Admitted As Inpatient Discharge Instructions Interventions: ED Discharge Assessment Last Done: 01/16/23 16:20 Forms Stand Alone Forms: [facility], Suicide Prevention Resources Prescriptions Prescriptions: No Action Linzess 145 mcg capsule 145 mcg PO DAILY PRN (Reason: constipation) Qty: 30 0RF Rx Instructions: Take 1 tablet daily as needed until bowel movement achieved ferrous sulfate 325 mg (65 mg iron) tablet 325 mg PO .COMPLEX Qty: 30 0RF Rx Instructions: 325 mg orally once weekly; peg 3350-electrolytes [GaviLyte-G] 236-22.74-6.74 -5.86 gram recon soln 240 ml PO Q10M Qty: 4000 0RF Rx Instructions: until fecal effluent is clear Gemtesa 75 mg tablet 75 mg PO DAILY Qty: 90 2RF tramadol 50 mg tablet 100 mg PO HS 30 Days Qty: 60 0RF lamotrigine 25 mg tablet 50 mg PO .am hydroxyzine pamoate [Vistaril] 25 mg capsule 25 mg PO BID PRN (Reason: Anxiety) Rx Instructions: 1-2 PRN lorazepam [Ativan] 0.5 mg tablet 0.5 mg PO Q8H PRN (Reason: Anxiety) prazosin 2 mg capsule 3 mg PO QPM Caplyta 42 mg capsule 42 mg PO DAILY diclofenac sodium 1 % gel 2 g topical QID Qty: 100 2RF Rx Instructions: apply to single elbow, wrist or hand; for hand includes palm/fingers/back of hand levothyroxine 50 mcg tablet 50 mcg PO DAILY lamotrigine 200 mg tablet 200 mg PO PM Magic Mouthwash 300 mL mouthwash 5 ml mucous membrane .q 4 hours PRN (Reason: sores in mouth) Qty: 300 0RF Rx Instructions: Benadryl 12.5 mg/5 mL oral elixir; Maalox 200 mg-200 mg-20 mg/5 mL oral suspension; Xylocaine Viscous 2 % mucosal solution;[Generic substitution ok] 1:1:1 compound Per 300 mL Referrals Referrals: Jimmy Arceo DO [Primary Care Provider] -
[2023-01-16 14:52] LABS: Basophils # (auto) 0.04 K/uL (0-0.2); Basophils % (auto) 0.4 %; Eosinophils # (auto) 0.01 K/uL (0-0.50); Eosinophils % (auto) 0.1 %; Hematocrit (blood only) 39.8 % (37.0-47.0); Hemoglobin 13.9 g/dl (12.0-16.0); Immature Granulocytes # (auto) 0.03 K/uL (0.01-0.20); Immature Granulocytes % (auto) 0.3 %; Lymphocytes # (auto) 1.54 K/uL (1.2-3.4); Lymphocytes % (auto) 15.9 %; Mean Corpuscular Hemoglobin 29.1 pg (25.0-34.0); Mean Corpuscular Hgb Conc 34.9 g/dL (32.0-36.0); Mean Corpuscular Volume 83.4 fL (80.0-100.0); Mean Platelet Volume 9.8 fL (9.4-12.4); Monocytes # (auto) 0.73 K/uL (0.11-0.59); Monocytes % (auto) 7.5 %; Neutrophils # (auto) 7.35 K/uL (1.40-6.50); Neutrophils % (auto) 75.8 %; Platelet Count 378 K/uL (130-400); RDW Coefficient of Variation 12.8 % (11.5-14.5); RDW Standard Deviation 38.7 fL (36.4-46.3); Red Blood Count 4.77 M/uL (4.20-5.40)
[2023-01-16 15:13] LABS: Acetaminophen < 3 ug/ml (10-30); Salicylate < 3.0 mg/dl (3.0-30)
[2023-01-16 15:20] LABS: Albumin Globulin Ratio 1.2 (0.9-2); Albumin Level 4.7 gm/dl (3.4-5.0); BUN Creatinine Ratio 14.2 (10-20); Bilirubin,Total 0.5 mg/dl (0.2-1.0); Calcium 10.5 mg/dl (8.6-10.3); Creatinine Clr Calc Pharmacy 41.9 ml/min; Est GFR (African American) 51.2 ml/min; Est GFR (Non-African American) 44.2 ml/min; Globulin 3.8 gm/dl (2.5-4.0); Potassium 3.9 mmol/L (3.5-5.1); Total Protein 8.5 gm/dl (6.0-8.3)
[2023-01-16] MEDS ORDERED: ALUMINUM/MAGNESIUM SUSP 30 ML UDC PO PRN (16:09)
[2023-01-16] MEDS ORDERED: hydrOXYzine HCl 25 MG TAB PO PRN (16:09)
[2023-01-16] MEDS ORDERED: BISMUTH SUBSALICYLATE LIQD 236 ML PO PRN (16:09)
[2023-01-16] MEDS ORDERED: SODIUM CHLORIDE 0.65% NA SOLN 45 ML (OCEAN) PRN (16:09)
[2023-01-16] MEDS ORDERED: MAGNESIUM HYDROXIDE SUSP 30 ML UDC PO PRN (16:09)
[2023-01-16] MEDS ORDERED: LORazepam 0.5 MG TAB PO PRN (16:13)
[2023-01-16] MEDS ORDERED: LINACLOTIDE 145 MCG CAPSULE PO PRN ×2 (16:13→16:41)
[2023-01-16] MEDS ORDERED: lamoTRIgine 25 MG TAB PO SCH (16:15)
[2023-01-16] MEDS ORDERED: DICLOFENAC SOD 1% GEL 100 GM TUBE EXT SCH (17:00)
[2023-01-16] MEDS: DICLOFENAC SOD 1% GEL 100 GM TUBE EXT SCH ×2 (18:16→22:53)
[2023-01-16] MEDS ORDERED: PROPRANOLOL HCL 20 MG TAB PO STA (19:02)
[2023-01-16] MEDS ORDERED: traMADol HCL 50 MG TABLET PO SCH (21:00)
[2023-01-16] MEDS ORDERED: clonazePAM 0.5 MG TAB PO SCH (21:00)
[2023-01-16] MEDS ORDERED: lamoTRIgine 100 MG TAB PO SCH (21:00)
[2023-01-16] MEDS ORDERED: PRAZOSIN HCL 1 MG CAP PO SCH (21:00)
[2023-01-16] MEDS: clonazePAM 0.5 MG TAB PO SCH ×2 (22:01→22:53)
[2023-01-16] MEDS: lamoTRIgine 25 MG TAB PO SCH (22:02)
[2023-01-16] MEDS: traMADol HCL 50 MG TABLET PO SCH ×2 (22:13→22:54)
[2023-01-16] MEDS: PRAZOSIN HCL 1 MG CAP PO SCH (22:54)
[2023-01-16] MEDS: lamoTRIgine 100 MG TAB PO SCH (22:54)
[2023-01-17] MEDS: hydrOXYzine HCl 25 MG TAB PO PRN ×2 (03:19→21:31)
[2023-01-17] MEDS: LEVOTHYROXINE SODIUM 50 MCG TABLET PO SCH (08:16)
[2023-01-17 08:24] LABS: Chol HDL Ratio 2.6 (0-5)
[2023-01-17] MEDS ORDERED: VIBEGRON 75 MG TAB PO SCH (09:00)
[2023-01-17] MEDS ORDERED: LEVOTHYROXINE SODIUM 50 MCG TABLET PO SCH (09:00)
[2023-01-17] MEDS: lamoTRIgine 25 MG TAB PO SCH (09:39)
[2023-01-17] MEDS: VIBEGRON 75 MG TAB PO SCH (09:39)
[2023-01-17] MEDS: clonazePAM 0.5 MG TAB PO SCH ×2 (09:39→21:10)
[2023-01-17] MEDS: DICLOFENAC SOD 1% GEL 100 GM TUBE EXT SCH (09:42)
[2023-01-17] MEDS: ACETAMINOPHEN 325 MG TAB PO PRN ×2 (09:57→22:15)
[2023-01-17] MEDS ORDERED: DICLOFENAC SOD 1% GEL 100 GM TUBE EXT PRN (12:31)
--- NOTE | 2023-01-17 12:59 | History & Physical ---
Date of Service January 17, 2023 Impression / Recommendations Impression 58 yo female with decline in self-care and worsening mood following d/c of Invega due to side effects, multiple trips to ED for ?dyskinesias, she reports similar when on combinations of antipsychotics before. Patient is currently agitated and focussed on prn benzos. Although she denies SI she is clearly labile and in need of inpatient hospitalization for stabilization and monitoring. (1) Bipolar 1 disorder: Plan The patient was admitted to the [facility] ([facility]) on q15 min checks (behavioral with suicide precautions) for safety. The patient will participate in group, recreational, and milieu therapies and will be offered additional individual and family sessions as clinically appropriate. Continue home medications save Caplyta as reportedly ineffective. Would recommend a retrial of olanzapine with samidorphan or typical antipsychotic for mood stabilization such as Trilafon. Inventory Assets Strengths: intelligent, mcfp relationship with providers Needs: med compliance, improve supports Suicide Risk Level Suicide Risk Level: Low (q15 min observation checks) Risk Factors Assessment : Yes Do You Have Access To A Gun?: No Mental Health Diagnoses: Yes Substance Use Disorders: No Previous Attempt: Yes Previous Psychiatric Hospitalization: Yes (multiple) Protective Factors Assessment Employed: Yes Supportive Family: Yes Psychiatric History Identifying Data JIM JUAREZ is a 58-year-old F who currently lives alone in [place], has a 20+ year history of bipolar disorder, and was admitted on 01/16/23 16:41 on a 201 voluntary commitment for irritability/restlessness. Chief Complaint "I done dealing with all of this." History of Present Illness Patient decompensated readily on questioning due to irritable mood and feeling redundancy. She complained of some VALENCIA this am which she attributes to inability to use CPAP due to unit protocols. Patient admits to stopping Invega due to side effects (urinary incontinence which started on Risperdal). Caplyta "isn't doing anything" and patient is aware that it is non-formulary. She has not been functioning as well the past month, seen in ED over the course of several days for varying reports of symptoms. She has denied SI but feels internally restless and c/o dyskinesia. Her long time outpatient psychiatrist Dr. Fraser and CM did not feel she was able to function independently and referred to ED for assess. Per Dr. Fraser soon after stopping Invega patient became more symptomatic and stated God told her to stop meds. She admitted to taking up to 3 mg Ativan to deal with these reported movements. Although patient superficially answered her social work assessment questions, she did not want to further discuss symptoms. She became loud, demanding to be left alone and made it clear she was not in a state to review additional medication options. She requested Ativan prn soon after receiving standing Klonopin and yelled out on return to her room. Past Psychiatric History Current Psychiatric Diagnosis: Bipolar disorder Previous Psych Admissions: [facility] 2008X2, 2009X2, 2010, 2011, 2012X3, 2014X2, 2016; [facility] 2018. Do You Have Access To A Gun?: No History of Previous Suicide Attempt: Yes (1996 while hospitalized (cut), 2017 (near OD attempt)) Past Medication Trials: anxiolytics: clonazepam, lorazepam, gabapentin, temazepam antidepressants: fluoxetine, venlafaxine, amitriptyline, bupropion, trazodone mood stabilizers: lithium, cabamazepine, divlaproex, lamictal antipsychotics: chlopromazine, haloperidol, aripiprazole, brexpiprazole, c ariprazine, lumateperone, Latuda, Zyprexa ("most helpful" per Dr. Fraser but gained 60 lbs), Invega (urinary), quetiapine, Risperdal (urinary), ziprasidone other: Cogentin, amantadine, Symmetrel, Mirapex, modafinil, Ambien, prazosin Allergies Allergy/AdvReac Type Severity Reaction Status Date / Time lurasidone [From Latuda] Allergy Mild Hallucinati Verified 01/16/23 16:22 ng gabapentin Allergy Unknown makes her Verified 01/08/23 11:27 manic quetiapine [From Seroquel] Allergy Unknown Verified 01/16/23 16:22 Home Medications Medication Instructions Recorded Confirmed Type levothyroxine 50 mcg tablet 50 mcg PO DAILY 05/18/19 01/17/23 History lumateperone 42 mg capsule 42 mg PO DAILY 03/30/20 01/17/23 History (Caplyta) prazosin 2 mg capsule 3 mg PO HS 04/04/21 01/17/23 History hydroxyzine pamoate 25 mg capsule 25 mg PO TID PRN Anxiety 08/29/21 01/17/23 History (Vistaril) lamotrigine 200 mg tablet 200 mg PO HS 08/29/21 01/17/23 History lamotrigine 25 mg tablet 50 mg PO DAILY 08/29/21 01/17/23 History lorazepam 0.5 mg tablet (Ativan) 0.5 mg PO QID PRN Anxiety 08/07/22 01/17/23 History linaclotide 145 mcg capsule 145 mcg PO DAILY PRN constipation 09/10/22 01/17/23 Rx (Linzess) #30 caps vibegron 75 mg tablet (Gemtesa) 75 mg PO DAILY #90 tabs 11/28/22 01/17/23 Rx Vitamin D3 50 mcg PO DAILY 01/17/23 01/17/23 History omeprazole 20 mcg PO DAILY 01/17/23 01/17/23 History tramadol 50 mg tablet 50 mg PO HS PRN discomfort due to 01/17/23 01/17/23 History restless leg Family History Family History of: Bipolar Family Mental Health History Comment: 8 people with bipolar on maternal side, depression on maternal side Alcohol History Hx of Alcohol Use Over the Past 12 Months: No AUDIT Total Score: 0 Smoking Use Have You Smoked or Used Tobacco Products in the Last 30 Days: No Smoking Status: Never smoker Substance History Hx of Prescription Med Misuse Over the Past 12 Months: No Hx of Over the Counter Med Misuse Over the Past 12 Months: No Hx of Inhalent Misuse Over the Past 12 Months: No Hx of Organic Substance Use Over the Past 12 Months: No Hx of Illegal Substances/Street Drug Use Over Past 12 Months: No Problems as a Result of Past Substance Use: None Identified Personal History Living Arrangements: Apartment Highest Grade Completed: College Highest Grade Completed Comment: Graduated with Bachelor's degree Marital Status: Number Of Children: 2 Beliefs That Will Affect Care: None Current Legal Problems: No Patient History Medical History Cholecystectomy planned Chronic kidney disease, stage III (moderate) GERD (gastroesophageal reflux disease) Hypothyroidism MONICO (obstructive sleep apnea) RLS (restless legs syndrome) Schizophrenia, paranoid, chronic with acute exacerbation Vitamin D deficiency Surgical History History of delivery History of tonsillectomy [place] teeth extracted Family History Father Hypertension Heart disease Mother Afib Stroke Crohn's disease Breast cancer Alzheimer disease Grandfather Stroke Prostate cancer Skin cancer (melanoma) Grandmother Cancer blood cancer Bipolar disorder Grandmother (Maternal) Alzheimer disease Breast cancer Grandfather (Paternal) Hypertension Stroke Grandfather (Maternal) Lung cancer Prostate cancer Skin cancer (melanoma) Denies family history of Ovarian cancer Diabetes Myocardial infarction Colorectal cancer Social History Smoking Status: Never smoker Second Hand Exposure: No; Do You Dip or Chew Tobacco: No; Hx Alcohol Use: No Hx Substance Use: No Preferred Language: Bahamian Communication Ability: Effective Visual Impairment: Limited Hearing Ability: Normal Online Marketing Strategist Required: No Beliefs That Will Affect Care: None marital status: Current Living Situation: Alone current occupational status: employed current occupation: [employer] in [employer] How many Children do You have: 2 Feels Safe at Home: Yes Childhood Exposure to Second-Hand Smoke: No Diet: regular caffeine: No Dental Care, Regularly: No Physical Activity Frequency: Does not Exercise Seatbelt Use: always Sunscreen Use: Yes (sometimes) Gender Identity: Female Assistive Devices: Glasses Review of Systems Review of Systems: All systems reviewed & are unremarkable except as noted in HPI & below Physical Exam Psychiatric: Orientation: alert and + guarded Apperance: + disheveled Eye Contact: + poor eye contact Motor Behavior: no abnormal motor movements Speech: + abnormal rate/rhythm/volume of speech (non-spontaneous then loud, not pressured) Affect: + depressed affect, + irritable affect and + angry affect Mood: + depressed mood and + irritable mood Thought Process: + concrete thought process Thought Content: reality based without delusions Suicidal Thoughts: denies suicidal thoughts Homicidal Thoughts: denies homicidal thoughts Hallucinations: no auditory hallucinations and no visual hallucinations Cognition: attention grossly intact and language grossly intact Estimated Intelligence: consistent with education level Insight: + limited insight Judgment: + limited judgement Vital Signs (Past 24 Hours): Last Vital Signs Temp 36.9 C 01/17/23 06:00 Pulse 103 H 01/17/23 06:00 Resp 18 01/17/23 06:00 BP 116/83 01/17/23 06:47 Pulse Ox 99 01/16/23 17:18 O2 Del Method Room Air 01/17/23 06:00 Exam Statement: A physical exam was performed in the ED by Dr. Joyce for the purposes of medical clearance. I accept that physical as correct and adequate for the purposes of the inpatient physical exam. Results & Data ([facility]) Laboratory Results Laboratory Results - last 24 hr 01/16/23 01/16/23 01/16/23 13:10 13:10 14:37 WBC 9.70 RBC 4.77 Hgb 13.9 Hct 39.8 MCV 83.4 MCH 29.1 MCHC 34.9 RDW Std Deviation 38.7 RDW Coeff of Matt 12.8 Plt Count 378 MPV 9.8 Immature Gran % (Auto) 0.3 Neut % (Auto) 75.8 Lymph % (Auto) 15.9 Mcculloch % (Auto) 7.5 Eos % (Auto) 0.1 Baso % (Auto) 0.4 Neut # (Auto) 7.35 H Lymph # (Auto) 1.54 Mcculloch # (Auto) 0.73 H Eos # (Auto) 0.01 Baso # (Auto) 0.04 Immature Gran # (Auto) 0.03 Sodium Potassium Chloride Carbon Dioxide Anion Gap BUN Creatinine Est Cr Clr Drug Dosing Est GFR ( Amer) Est GFR (Non-Af Amer) BUN/Creatinine Ratio Glucose Fasting Glucose Calcium Total Bilirubin AST ALT Alkaline Phosphatase Total Protein Albumin Globulin Albumin/Globulin Ratio Triglycerides Cholesterol LDL Cholesterol, Calc VLDL Cholesterol, Calc HDL Cholesterol Cholesterol/HDL Ratio TSH Urine Color Yellow Urine Appearance Clear Urine pH 8.0 H Ur Specific Hammond 1.012 Urine Protein Negative Urine Glucose (UA) Negative Urine Ketones Negative Urine Blood Negative Urine Nitrite Negative Urine Bilirubin Negative Urine Urobilinogen Negative Ur Leukocyte Esterase Negative Salicylates Urine Opiates Screen Neg Ur Methadone, Qual Neg Acetaminophen Urine Barbiturates Neg Ur Phencyclidine (PCP) Neg U Amphetamin/Meth Scrn Neg MDMA (Ecstasy) Screen Neg U Benzodiazepines Scrn Neg Ur Cocaine Metabolite Neg U Marijuana (THC) Screen Neg Ethyl Alcohol mg/dL SARS-CoV-2, RNA, NAAT 01/16/23 01/16/23 01/16/23 14:37 14:37 14:37 WBC RBC Hgb Hct MCV MCH MCHC RDW Std Deviation RDW Coeff of Matt Plt Count MPV Immature Gran % (Auto) Neut % (Auto) Lymph % (Auto) Mcculloch % (Auto) Eos % (Auto) Baso % (Auto) Neut # (Auto) Lymph # (Auto) Mcculloch # (Auto) Eos # (Auto) Baso # (Auto) Immature Gran # (Auto) Sodium 140 Potassium 3.9 Chloride 108 H Carbon Dioxide 20 L Anion Gap 12 H BUN 19 Creatinine 1.34 H Est Cr Clr Drug Dosing 41.9 Est GFR ( Amer) 51.2 Est GFR (Non-Af Amer) 44.2 BUN/Creatinine Ratio 14.2 Glucose 92 Fasting Glucose Calcium 10.5 H Total Bilirubin 0.5 AST 21 ALT 17 Alkaline Phosphatase 96 Total Protein 8.5 H Albumin 4.7 Globulin 3.8 Albumin/Globulin Ratio 1.2 Triglycerides Cholesterol LDL Cholesterol, Calc VLDL Cholesterol, Calc HDL Cholesterol Cholesterol/HDL Ratio TSH 0.914 Urine Color Urine Appearance Urine pH Ur Specific Hammond Urine Protein Urine Glucose (UA) Urine Ketones Urine Blood Urine Nitrite Urine Bilirubin Urine Urobilinogen Ur Leukocyte Esterase Salicylates < 3.0 L Urine Opiates Screen Ur Methadone, Qual Acetaminophen < 3 L Urine Barbiturates Ur Phencyclidine (PCP) U Amphetamin/Meth Scrn MDMA (Ecstasy) Screen U Benzodiazepines Scrn Ur Cocaine Metabolite U Marijuana (THC) Screen Ethyl Alcohol mg/dL SARS-CoV-2, RNA, NAAT 01/16/23 01/16/23 01/17/23 14:37 14:37 07:46 WBC RBC Hgb Hct MCV MCH MCHC RDW Std Deviation RDW Coeff of Matt Plt Count MPV Immature Gran % (Auto) Neut % (Auto) Lymph % (Auto) Mcculloch % (Auto) Eos % (Auto) Baso % (Auto) Neut # (Auto) Lymph # (Auto) Mcculloch # (Auto) Eos # (Auto) Baso # (Auto) Immature Gran # (Auto) Sodium Potassium Chloride Carbon Dioxide Anion Gap BUN Creatinine Est Cr Clr Drug Dosing Est GFR ( Amer) Est GFR (Non-Af Amer) BUN/Creatinine Ratio Glucose Fasting Glucose 100 H Calcium Total Bilirubin AST ALT Alkaline Phosphatase Total Protein Albumin Globulin Albumin/Globulin Ratio Triglycerides 97 Cholesterol 149 LDL Cholesterol, Calc 73 VLDL Cholesterol, Calc 19 HDL Cholesterol 57 Cholesterol/HDL Ratio 2.6 TSH Urine Color Urine Appearance Urine pH Ur Specific Hammond Urine Protein Urine Glucose (UA) Urine Ketones Urine Blood Urine Nitrite Urine Bilirubin Urine Urobilinogen Ur Leukocyte Esterase Salicylates Urine Opiates Screen Ur Methadone, Qual Acetaminophen Urine Barbiturates Ur Phencyclidine (PCP) U Amphetamin/Meth Scrn MDMA (Ecstasy) Screen U Benzodiazepines Scrn Ur Cocaine Metabolite U Marijuana (THC) Screen Ethyl Alcohol mg/dL < 10.0 SARS-CoV-2, RNA, NAAT NEGATIVE Diagnostic Findings EKG in ED day prior to admission sinus tachy, nl QTc Current Inpatient Medications Current Inpatient Medications: Current Inpatient Medications Acetaminophen (Acetaminophen 325 Mg Tab) 650 mg PO Q4H PRN PRN Reason: Headache or Minor Fever Stop: 02/15/23 16:08 Last Admin: 01/17/23 09:57 Dose: 650 mg Al Hydrox/Mg Hydrox/Simethicone (Aluminum/Magnesium Susp 30 Ml Udc) 30 ml PO Q4H PRN PRN Reason: GI Upset Stop: 02/15/23 16:08 Bismuth Subsalicylate (Bismuth Subsalicylate Liqd 236 Ml) 15 ml PO PRN PRN PRN Reason: Loose Stool Stop: 02/15/23 16:08 Clonazepam (Clonazepam 0.5 Mg Tab) 0.5 mg PO BID CHRISTINE Stop: 02/15/23 20:59 Last Admin: 01/17/23 09:39 Dose: 0.5 mg Diclofenac Sodium (Diclofenac Sod 1% Gel 100 Gm Tube) 2 gm EXT QID PRN; Protocol PRN Reason: Pain Stop: 02/15/23 16:59 Hydroxyzine HCl (Hydroxyzine Hcl 25 Mg Tab) 50 mg PO HSZ PRN PRN Reason: Insomnia Stop: 02/15/23 16:08 Last Admin: 01/17/23 03:19 Dose: 50 mg Hydroxyzine HCl (Hydroxyzine Hcl 25 Mg Tab) 25 mg PO Q4H PRN PRN Reason: Anxiety Stop: 02/15/23 16:08 Lamotrigine (Lamotrigine 25 Mg Tab) 50 mg PO DAILY CHRISTINE Stop: 02/16/23 08:59 Last Admin: 01/17/23 09:39 Dose: 50 mg Lamotrigine (Lamotrigine 100 Mg Tab) 200 mg PO PM CHRISTINE Stop: 02/15/23 20:59 Last Admin: 01/16/23 22:54 Dose: Not Given Levothyroxine Sodium (Levothyroxine Sodium 50 Mcg Tablet) 50 mcg PO DAILYBB REPLACED BY [facility] Stop: 02/16/23 07:59 Last Admin: 01/17/23 08:16 Dose: 50 mcg Linaclotide (Linaclotide 145 Mcg Capsule) 145 mcg PO DAILY PRN PRN Reason: constipation Stop: 02/15/23 16:12 Lorazepam (Lorazepam 0.5 Mg Tab) 0.5 mg PO Q4 PRN PRN Reason: Anxiety Stop: 02/15/23 16:12 Magnesium Hydroxide (Magnesium Hydroxide Susp 30 Ml Udc) 30 ml PO DAILY PRN PRN Reason: Constipation Stop: 02/15/23 16:08 Prazosin HCl (Prazosin Hcl 1 Mg Cap) 3 mg PO QPM REPLACED BY [facility] Stop: 02/15/23 20:59 Last Admin: 01/16/23 22:54 Dose: Not Given Sodium Chloride (Sodium Chloride 0.65% Na Soln 45 Ml (George)) 1 - 2 sprays NA PRN PRN PRN Reason: Nasal Dryness/Congestion Stop: 02/15/23 16:08 Tramadol HCl (Tramadol Hcl 50 Mg Tablet) 100 mg PO HS PRN PRN Reason: discomfort due to restless leg Stop: 02/15/23 20:59 Vibegron (Vibegron 75 Mg Tab) 75 mg PO DAILY CHRISTINE Stop: 02/16/23 08:59 Last Admin: 01/17/23 09:39 Dose: 75 mg
[2023-01-17] MEDS: LORazepam 0.5 MG TAB PO PRN ×2 (13:26→23:07)
[2023-01-17] MEDS ORDERED: dexAMETHasone 2 MG/20 ML UDP PO SCH (21:00)
[2023-01-17] MEDS: traMADol HCL 50 MG TABLET PO PRN (21:11)
[2023-01-17] MEDS: lamoTRIgine 100 MG TAB PO SCH (21:14)
[2023-01-17] MEDS: PRAZOSIN HCL 1 MG CAP PO SCH (21:15)
[2023-01-18] MEDS: hydrOXYzine HCl 25 MG TAB PO PRN (00:38)
[2023-01-18] MEDS: LORazepam 0.5 MG TAB PO PRN (03:20)
[2023-01-18] MEDS: LEVOTHYROXINE SODIUM 50 MCG TABLET PO SCH (08:15)
[2023-01-18] MEDS: clonazePAM 0.5 MG TAB PO SCH ×2 (08:48→21:50)
[2023-01-18] MEDS: VIBEGRON 75 MG TAB PO SCH (08:50)
[2023-01-18] MEDS: lamoTRIgine 25 MG TAB PO SCH (08:50)
--- NOTE | 2023-01-18 20:17 | Psychiatric Progress Note ---
Date of Service January 18, 2023 Impression / Recommendations Impression 58 yo woman with history of bipolar affective disorder with decline in self-care and worsening mood following d/c of Invega due to side effects, multiple trips to ED for possible dyskinesias, she reports similar symnptoms in the past when on combinations of antipsychotics before. Diagnostically consistent with unspecified mood disorder-seems most consistent with manic episode of BPAD. She is deemed in need of inpatient hospitalization for stabilization and monitoring. MNPR due to irritability, anger, poor sleep and inability to tolerate a roommate 01/18/2023: Very poor sleep last night, <1.5 hours, and appeared to nap some during the day but ongoing significant irritability, periods of loud voice and increased psychomotor activity concerning for episode of nilson vs mixed episode. Given concern for nilson agree with scheduled Klonopin in addition to ativan prn especially since she is refusing any other medication trials at this time. Will continue with lamictal though she is threatening to start refusing this. Will start propranolol 10mg BID in case motor activation is driven by akathisia but suspect more likely due to acute nilson. (1) Bipolar 1 disorder: Plan 01/18/2023: Start propranolol 10mg BID for akathisia. She is refusing to consider any other medications at this time. 01/17/2023: The patient was admitted to the [facility] ([facility] mental health unit) on q15 min checks (behavioral with suicide precautions) for safety. The patient will participate in group, recreational, and milieu therapies and will be offered additional individual and family sessions as clinically appropriate. Continue home medications save Caplyta as reportedly ineffective. Would recommend a retrial of olanzapine with samidorphan or typical antipsycho tic for mood stabilization such as Trilafon. Inventory Assets Strengths: intelligent, mcc relationship with providers Needs: med compliance, improve supports Suicide Risk Level Suicide Risk Level: Low (q15 min observation checks) (denies SI and agrees to let nurses know if she feels unsafe or requires additional support) Risk Factors Assessment : Yes Do You Have Access To A Gun?: No Mental Health Diagnoses: Yes Substance Use Disorders: No Previous Attempt: Yes Previous Psychiatric Hospitalization: Yes (multiple) Protective Factors Assessment Employed: Yes Supportive Family: Yes Interval History Identifying Information JIM JUAREZ is a 58-year-old F who currently lives alone in [place], has a 20+ year history of bipolar disorder, and was admitted on 01/16/23 16:41 on a 201 voluntary commitment for irritability/restlessness. Chief Complaint "I don't want any meds". Review of Systems Sleep Information Total Hours of Sleep: 1.5 Sleep Comments: Pt appeared to only be asleep for approx. 1 hour. Meal Information Percent Meal Consumed - Breakfast: 75 Percent Meal Consumed - Lunch: 0 Percent Meal Consumed - Dinner: 80 Subjective Subjective Patient was seen & assessed and interval progress reviewed with treatment team nursing and social work. Up most of the night, requested prn ativan and Vistaril and received during the night. isolative to her room all day, sleeping at times. On my attempt to meet with her in the afternoon she is swaying back and forth by her bed facing the window and refuses to turn around during our interaction at all. States she continues to feel a sense of restlessness. Doesn't think the dose of propranolol she got helped but is willing to try a higher dose of this. Says she is also bothered by "music in my head and singing all day" and reports "I am manic". However, continues to refuse to discuss any medication options including antipsychotics nor other mood stabilizers stating "it's my body and doctors have piled me full of medications all my life and I'm tired of it". Tells me zyprexa worked well for her and we discuss use of metformin with this has shown decreased risk for antipsychotic-induced weight gain but she states she is unwilling to consider any antipsychotics as they all cause cognitive blunting. States she also plans to stop her lamictal because "how do you know it's doing anything". Discussed my concerns with her that this is her only current mood stabilizer and if she refuses more than three doses than slow titration would have to restart and risks of severe depression and nilson. She is adamant throughout the conversation that 'I don't want any meds". Yells loudly and angrily at times. Physical Exam Psychiatric Orientation: alert and + guarded Apperance: + disheveled Eye Contact: + poor eye contact Motor Behavior: + psychomotor agitation (swaying side to side) Speech: + loud speech; + abnormal rate/rhythm/volume of speech (loud, not pressured) Affect: + labile affect, + irritable affect and + angry affect Mood: + depressed mood, + irritable mood and + angry mood Thought Process: + perseveration and + concrete thought process Thought Content: reality based without delusions Suicidal Thoughts: denies suicidal thoughts Homicidal Thoughts: denies homicidal thoughts Hallucinations: + auditory hallucinations (of music and singing); no visual hallucinations Cognition: attention grossly intact and language grossly intact Estimated Intelligence: consistent with education level Insight: + limited insight Judgment: + severely impaired judgement Vital Signs (Past 24 Hours) Last Vital Signs Temp 36.9 C 01/18/23 06:00 Pulse 87 01/18/23 06:00 Resp 18 01/18/23 06:00 BP 88/56 L 01/18/23 06:58 Pulse Ox 97 01/18/23 06:00 O2 Del Method Room Air 01/18/23 06:00 Results & Data ([facility]) Current Inpatient Medications Current Inpatient Medications: Current Inpatient Medications Acetaminophen (Acetaminophen 325 Mg Tab) 650 mg PO Q4H PRN PRN Reason: Headache or Minor Fever Stop: 02/15/23 16:08 Last Admin: 01/17/23 22:15 Dose: 650 mg Al Hydrox/Mg Hydrox/Simethicone (Aluminum/Magnesium Susp 30 Ml Udc) 30 ml PO Q4H PRN PRN Reason: GI Upset Stop: 02/15/23 16:08 Bismuth Subsalicylate (Bismuth Subsalicylate Liqd 236 Ml) 15 ml PO PRN PRN PRN Reason: Loose Stool Stop: 02/15/23 16:08 Clonazepam (Clonazepam 0.5 Mg Tab) 0.5 mg PO BID CHRISTINE Stop: 02/15/23 20:59 Last Admin: 01/18/23 08:48 Dose: 0.5 mg Diclofenac Sodium (Diclofenac Sod 1% Gel 100 Gm Tube) 2 gm EXT QID PRN; Protocol PRN Reason: Pain Stop: 02/15/23 16:59 Hydroxyzine HCl (Hydroxyzine Hcl 25 Mg Tab) 50 mg PO HSZ PRN PRN Reason: Insomnia Stop: 02/15/23 16:08 Last Admin: 01/18/23 00:38 Dose: 50 mg Hydroxyzine HCl (Hydroxyzine Hcl 25 Mg Tab) 25 mg PO Q4H PRN PRN Reason: Anxiety Stop: 02/15/23 16:08 Lamotrigine (Lamotrigine 25 Mg Tab) 50 mg PO DAILY CHRISTINE Stop: 02/16/23 08:59 Last Admin: 01/18/23 08:50 Dose: 50 mg Lamotrigine (Lamotrigine 100 Mg Tab) 200 mg PO PM CHRISTINE Stop: 02/15/23 20:59 Last Admin: 01/17/23 21:14 Dose: 200 mg Levothyroxine Sodium (Levothyroxine Sodium 50 Mcg Tablet) 50 mcg PO DAILYBB CHRISTINE Stop: 02/16/23 07:59 Last Admin: 01/18/23 08:15 Dose: 50 mcg Linaclotide (Linaclotide 145 Mcg Capsule) 145 mcg PO DAILY PRN PRN Reason: constipation Stop: 02/15/23 16:12 Lorazepam (Lorazepam 0.5 Mg Tab) 0.5 mg PO Q4 PRN PRN Reason: Anxiety Stop: 02/15/23 16:12 Last Admin: 01/18/23 03:20 Dose: 0.5 mg Magnesium Hydroxide (Magnesium Hydroxide Susp 30 Ml Udc) 30 ml PO DAILY PRN PRN Reason: Constipation Stop: 02/15/23 16:08 Prazosin HCl (Prazosin Hcl 1 Mg Cap) 3 mg PO QPM CHRISTINE Stop: 02/15/23 20:59 Last Admin: 01/17/23 21:15 Dose: 3 mg Sodium Chloride (Sodium Chloride 0.65% Na Soln 45 Ml ([place])) 1 - 2 sprays NA PRN PRN PRN Reason: Nasal Dryness/Congestion Stop: 02/15/23 16:08 Tramadol HCl (Tramadol Hcl 50 Mg Tablet) 100 mg PO HS PRN PRN Reason: discomfort due to restless leg Stop: 02/15/23 20:59 Last Admin: 01/17/23 21:11 Dose: 100 mg Vibegron (Vibegron 75 Mg Tab) 75 mg PO DAILY CHRISTINE Stop: 02/16/23 08:59 Last Admin: 01/18/23 08:50 Dose: 75 mg Mental Health & Subst Abuse Tx Therapist Name of Therapist: Jolly Jo Taxonomist Name of Taxonomist: Renzo Dias
[2023-01-18] MEDS: PROPRANOLOL HCL 10 MG TAB PO SCH (21:50)
[2023-01-18] MEDS: lamoTRIgine 100 MG TAB PO SCH (21:50)
[2023-01-18] MEDS: PRAZOSIN HCL 1 MG CAP PO SCH (21:50)
[2023-01-19] MEDS: clonazePAM 0.5 MG TAB PO SCH ×2 (09:13→21:58)
[2023-01-19] MEDS: LEVOTHYROXINE SODIUM 50 MCG TABLET PO SCH (09:13)
[2023-01-19] MEDS: PROPRANOLOL HCL 10 MG TAB PO SCH ×2 (09:13→20:47)
[2023-01-19] MEDS: VIBEGRON 75 MG TAB PO SCH (09:13)
[2023-01-19] MEDS: lamoTRIgine 25 MG TAB PO SCH (09:16)
--- NOTE | 2023-01-19 09:33 | Psychiatric Progress Note ---
Date of Service January 19, 2023 Impression / Recommendations Impression 58 yo woman with history of bipolar affective disorder with decline in self-care and worsening mood following d/c of Invega due to side effects, multiple trips to ED for possible dyskinesias, she reports similar symnptoms in the past when on combinations of antipsychotics before. Diagnostically consistent with unspecified mood disorder-seems most consistent with manic episode of BPAD. She is deemed in need of inpatient hospitalization for stabilization and monitoring. Signed a 72 hour notice that expires 01/21/2023 at 1750. MNPR due to irritability and inability to tolerate a roommate 01/19/2023: Slept better last night. Today no signs of nilson except some irritability but this is mild. Extensive help seeking help rejecting during our conversation as she finds hospitalization unhelpful but is unwilling to consider medication trials nor attend groups. States she would consider trying zyprexa again in the outpatient setting but will not reconsider starting this here. States her plan to continue to refuse lamictal despite extensive psychoeducation and motivational interviewing. (1) Bipolar 1 disorder: Plan 01/19/2023: She is refusing lamictal and refusing to consider any other medications for mood stabilization or to help with her auditory hallucinations. 01/18/2023: Start propranolol 10mg BID for akathisia. She is refusing to consider any other medications at this time. 01/17/2023: The patient was admitted to the [facility] ([facility]) on q15 min checks (behavioral with suicide precautions) for safety. The patient will participate in group, recreational, and milieu therapies and will be offered additional individual and family sessions as clinically appropriate. Continue home medications save Caplyta as reportedly ineffective. Would recommend a retrial of olanzapine with samidorphan or typical antipsychotic for mood stabilization such as Trilafon. Inventory Assets Strengths: intelligent, intermediate relationship with providers Needs: med compliance, improve supports Suicide Risk Level Suicide Risk Level: Low (q15 min observation checks) (denies SI and agrees to let nurses know if she feels unsafe or requires additional support) Risk Factors Assessment : Yes Do You Have Access To A Gun?: No Mental Health Diagnoses: Yes Substance Use Disorders: No Previous Attempt: Yes Previous Psychiatric Hospitalization: Yes (multiple) Protective Factors Assessment Employed: Yes Supportive Family: Yes Interval History Identifying Information JIM JUAREZ is a 58-year-old F who currently lives alone in [place], has a 20+ year history of bipolar disorder, and was admitted on 01/16/23 16:41 on a 201 voluntary commitment for irritability/restlessness. Chief Complaint "No being here is not helping". Review of Systems Sleep Information Total Hours of Sleep: 5.5 Sleep Comments: Meal Information Percent Meal Consumed - Breakfast: 75 Percent Meal Consumed - Lunch: 0 Percent Meal Consumed - Dinner: 80 Subjective Subjective Patient was seen & assessed and interval progress reviewed with treatment team nursing and social work. She refused all groups. Refused all her medications last night and then refused lamictal this morning. Slept all night for 5.5 hours, did not ask for any prns. Today attended one group but otherwise declined all groups. Observed having a tearful phone call mid-afternoon. Later in the afternoon in meetingw ith her she explains signing the 72 hour notice as she feels being in the hospital is not helpful and she doesn't find the groups helpful. Discussed her ongoing concerns about hearing constant music and feeling a need to move. She doesn't think her movements are driven by akathisia as she doesn't feel restless but rather "the movements are something I do naturally but in overdrive, I'm engaging in an activity I like but I don't think it's restlessness". Reviewed that she declined propranolol last night so if she takes both doses today we can better assess based on efficicacy if akathisia is possible. Reviewed other possible causes of motor movements, she doesn't feel this is like restless leg syndrome which she's had in the past. Discussed based on motor exam doesn't appear to be tardive dyskinesia but this could be a possibility versus her sense that maybe more driven by possible internal psychomotor activity increase. She is not interested in considering any new medications. States she may consider zyprexa but "only with Dr. Allen, no offense but I don't know you well". Physical Exam Psychiatric Orientation: alert and oriented x 3 Apperance: appropriately dressed and appropriately groomed Eye Contact: good eye contact Motor Behavior: no abnormal motor movements (sits calmly in bed during our conversation) Speech: normal rate/rhythm/volume of speech; no pressured speech and no loud speech Affect: + anxious affect and + irritable affect Mood: + anxious mood and + irritable mood Thought Process: + perseveration Thought Content: reality based without delusions Suicidal Thoughts: denies suicidal thoughts Homicidal Thoughts: denies homicidal thoughts Hallucinations: + auditory hallucinations (of music and singing); no visual hallucinations Cognition: attention grossly intact and language grossly intact Estimated Intelligence: consistent with education level Insight: + limited insight Judgment: + severely impaired judgement Vital Signs (Past 24 Hours) Last Vital Signs Temp 37.2 C 01/19/23 06:00 Pulse 98 H 01/19/23 07:05 Resp 16 01/19/23 06:00 BP 117/63 01/19/23 07:05 Pulse Ox 97 01/18/23 06:00 O2 Del Method Room Air 01/18/23 06:00 Results & Data ([facility]) Current Inpatient Medications Current Inpatient Medications: Current Inpatient Medications Acetaminophen (Acetaminophen 325 Mg Tab) 650 mg PO Q4H PRN PRN Reason: Headache or Minor Fever Stop: 02/15/23 16:08 Last Admin: 01/17/23 22:15 Dose: 650 mg Al Hydrox/Mg Hydrox/Simethicone (Aluminum/Magnesium Susp 30 Ml Udc) 30 ml PO Q4H PRN PRN Reason: GI Upset Stop: 02/15/23 16:08 Bismuth Subsalicylate (Bismuth Subsalicylate Liqd 236 Ml) 15 ml PO PRN PRN PRN Reason: Loose Stool Stop: 02/15/23 16:08 Clonazepam (Clonazepam 0.5 Mg Tab) 0.5 mg PO BID CHRISTINE Stop: 02/15/23 20:59 Last Admin: 01/19/23 09:13 Dose: 0.5 mg Diclofenac Sodium (Diclofenac Sod 1% Gel 100 Gm Tube) 2 gm EXT QID PRN; Protocol PRN Reason: Pain Stop: 02/15/23 16:59 Hydroxyzine HCl (Hydroxyzine Hcl 25 Mg Tab) 50 mg PO HSZ PRN PRN Reason: Insomnia Stop: 02/15/23 16:08 Last Admin: 01/18/23 00:38 Dose: 50 mg Hydroxyzine HCl (Hydroxyzine Hcl 25 Mg Tab) 25 mg PO Q4H PRN PRN Reason: Anxiety Stop: 02/15/23 16:08 Lamotrigine (Lamotrigine 25 Mg Tab) 50 mg PO DAILY CHRISTINE Stop: 02/16/23 08:59 Last Admin: 01/19/23 09:16 Dose: Not Given Lamotrigine (Lamotrigine 100 Mg Tab) 200 mg PO PM CHRISTINE Stop: 02/15/23 20:59 Last Admin: 01/18/23 21:50 Dose: Not Given Levothyroxine Sodium (Levothyroxine Sodium 50 Mcg Tablet) 50 mcg PO DAILYBB CHRISTINE Stop: 02/16/23 07:59 Last Admin: 01/19/23 09:13 Dose: 50 mcg Linaclotide (Linaclotide 145 Mcg Capsule) 145 mcg PO DAILY PRN PRN Reason: constipation Stop: 02/15/23 16:12 Lorazepam (Lorazepam 0.5 Mg Tab) 0.5 mg PO Q4 PRN PRN Reason: Anxiety Stop: 02/15/23 16:12 Last Admin: 01/18/23 03:20 Dose: 0.5 mg Magnesium Hydroxide (Magnesium Hydroxide Susp 30 Ml Udc) 30 ml PO DAILY PRN PRN Reason: Constipation Stop: 02/15/23 16:08 Prazosin HCl (Prazosin Hcl 1 Mg Cap) 3 mg PO QPM CHRISTINE Stop: 02/15/23 20:59 Last Admin: 01/18/23 21:50 Dose: Not Given Propranolol HCl (Propranolol Hcl 10 Mg Tab) 10 mg PO BID CHRISTINE Stop: 02/17/23 20:59 Last Admin: 01/19/23 09:13 Dose: 10 mg Sodium Chloride (Sodium Chloride 0.65% Na Soln 45 Ml (Sultana)) 1 - 2 sprays NA PRN PRN PRN Reason: Nasal Dryness/Congestion Stop: 02/15/23 16:08 Tramadol HCl (Tramadol Hcl 50 Mg Tablet) 100 mg PO HS PRN PRN Reason: discomfort due to restless leg Stop: 02/15/23 20:59 Last Admin: 01/17/23 21:11 Dose: 100 mg Vibegron (Vibegron 75 Mg Tab) 75 mg PO DAILY CHRISTINE Stop: 02/16/23 08:59 Last Admin: 01/19/23 09:13 Dose: 75 mg Mental Health & Subst Abuse Tx Psychiatrist Name of Psychiatrist: Dr Fraser Psychiatrist's Therapist Name of Therapist: Jolly Jo Therapist's Aerospace Products Sales Engineer Name of Aerospace Products Sales Engineer: Renzo Dias Phone Number for Aerospace Products Sales Engineer: [phone] Post Discharge Appointments Primary Care Physician Primary Care Phone Number: Dr Arceo Date of Future Appointment with PCP: [phone] Contact Information Discharge Discharge Address: [facility] [address] [place] [address]
[2023-01-19] MEDS: LORazepam 0.5 MG TAB PO PRN (12:20)
[2023-01-19] MEDS: ACETAMINOPHEN 325 MG TAB PO PRN (13:53)
[2023-01-19] MEDS: PRAZOSIN HCL 1 MG CAP PO SCH (20:47)
[2023-01-19] MEDS: traMADol HCL 50 MG TABLET PO PRN (21:53)
[2023-01-19] MEDS: lamoTRIgine 100 MG TAB PO SCH (21:58)
[2023-01-20] MEDS: LEVOTHYROXINE SODIUM 50 MCG TABLET PO SCH (07:49)
[2023-01-20] MEDS: clonazePAM 0.5 MG TAB PO SCH (08:45)
[2023-01-20] MEDS: lamoTRIgine 25 MG TAB PO SCH (08:46)
[2023-01-20] MEDS: PROPRANOLOL HCL 10 MG TAB PO SCH (08:46)
[2023-01-20] MEDS: VIBEGRON 75 MG TAB PO SCH (08:46)
--- NOTE | 2023-01-20 10:56 | Discharge Summary ---
Date of Service January 20, 2023 History of Present Illness Patient decompensated readily on questioning due to irritable mood and feeling redundancy. She complained of some VALENCIA this am which she attributes to inability to use CPAP due to unit protocols. Patient admits to stopping Invega due to side effects (urinary incontinence which started on Risperdal). Caplyta "isn't doing anything" and patient is aware that it is non-formulary. She has not been functioning as well the past month, seen in ED over the course of several days for varying reports of symptoms. She has denied SI but feels internally restless and c/o dyskinesia. Her long time outpatient psychiatrist Dr. Fraser and CM did not feel she was able to function independently and referred to ED for assess. Per Dr. Fraser soon after stopping Invega patient became more symptomatic and stated God told her to stop meds. She admitted to taking up to 3 mg Ativan to deal with these reported movements. Although patient superficially answered her social work assessment questions, she did not want to further discuss symptoms. She became loud, demanding to be left alone and made it clear she was not in a state to review additional medication options. She requested Ativan prn soon after receiving standing Klonopin and yelled out on return to her room. Physical Exam Vital Signs (Past 24 Hours) Last Vital Signs Temp 36.6 C 01/20/23 10:05 Pulse 87 01/20/23 10:05 Resp 18 01/20/23 10:05 BP 112/65 01/20/23 10:05 Pulse Ox 98 01/20/23 10:05 O2 Del Method Room Air 01/20/23 06:00 See admission H&P and DOD summary. Principal Diagnosis Bipolar Affective Disorder Psychiatric Data See daily stay summary. Initially Susana presented with some irritability, poor sleep and a sense of increased motor restlessness which raised concern for a possible episode of emerging hypomania. However, she was not interested in starting any new mood stabilizers, desired to discontinue her Caplyta and expressed her plan to discontinue lamictal. Scheduled clonazepam 0.5mg BID was started in an attempt to help with her unclear motor restlessness and to provide some protection against emergence of nilson in light of her decision to stop all of her mood stabilizer medications. She signed a 72 hour notice early in her stay and attended a few groups but preferred to spend time in her room except when eating meals or talking on the unit phones. After the first two days of admission she continued to have some irritability and variable sleep (which she attributed to not having access to her CPAP) but there were no other signs of hypomania nor nilson and she denied symptoms of depression. She tolerated clonazepam well and was then also started on propranolol 10mg BID for possible akathisia. She began to decline her lamictal and extensive motivational interviewing was done regarding this. She stated understanding and agreed that if she chooses to skip another dose of lamictal after discharge (which would constitute day 3) that she should then talk to her outpatient psychiatrist before restarting it as typically it then needs to be restarted at 25mg daily and slowly retitrated to reduce the risk of Amin-Natalio syndrome/potentially fatal rash. She responded well to propranolol after three days and reported significant relief from her sense of leg restlessness and was very grateful for this. Reviewed recommendation that if motor symptoms return or worsen in the future to consider outpatient neurology evaluation by a movement disorder specialist to rule out atypical tardive dyskinesia or other possible causes. On the day of discharge she was apologetic regarding her previous irritability noting her prior discomfort from her leg/motor restlessness and expressed interest in possibly starting zyprexa with her outpatient psychiatrist. She stated her mood was "calm" and was future-oriented about returning to work. She consistently denied SI and stated her children as a huge deterrent. She felt very well supported by her outpatient mental health resources and so declined offers for additional referrals for campaign specialist noting her desire to get back to a more routine schedule at work. She continued to hear music at times but denied that this felt like an auditory hallucination and adamantly denied any delusions, command auditory hallucinations nor any other symptoms of psychosis. There was no evidence for any disorganized behaviors. Day of Discharge Assessment Today the patient voices readiness for discharge. They note improvement in mood and anxiety. They deny thoughts of harm to self or others. Thoughts are organized and they are clinically improved from admission. There is no evidence of psychosis. They improved in the hospital with support and medication adjustments. They agree to take medications as prescribed and keep follow-up appointments. At the time of the discharge they are deemed to be stable and appropriate for outpatient level of care. They are not deemed to be at imminent risk of harm to self or others. They are aware of emergency and crisis services. Knows to call 911 or go to nearest emergency care center if in a crisis which cannot be handled as an outpatient. Transition of Care Transition Of Care Record: was reviewed with the patient Advance Directives Advance Directives Information Provided: Yes Advance Directives: No Mental Health Advance Directive: No Advance Directives on File: No Living Will: No Power of Film Drying Machine Operator: No Advance Directives Reason:: Declines as Mental Health Visit. Suicide Risk Level Suicide Risk Level Comments: Acute risk is low given improvement in mood and denial of SI, lack of access to lethal means, hopefulness and improvement in muscle restlessness symptoms. Chronic risk is moderate given some non-modifiable risk factors: periods of impulsivity, prior attempt, emotional reactivity, prior psychiatric hospitalizations, mood disorder and likely cluster B traits but also with protective factors including: employed, good social support, sense of responsibility to family and social supports, outpatient care in place, positive coping skills, capacity to establish therapeutic alliance, capacity for self- observation. Counseled on ways to reduce acute and chronic risk including engaging with outpatient providers, using safety plan if needed, utilizing supports, taking medication, and using coping skills. Modifiable risk factors of muscle restlessness was addressed during hospitalization through development of safety planning, and medication adjustments. Risk Factors Assessment Male: No : Yes Do You Have Access To A Gun?: No Health Problems: Yes (recent issues with antipsychotic side effects) Mental Health Diagnoses: Yes Substance Use Disorders: No Previous Attempt: Yes Previous Psychiatric Hospitalization: Yes (multiple) Hopelessness: No Protective Factors Assessment Employed: Yes Stable Relationships: Yes Supportive Family: Yes Good Rapport with Provider: Yes Tobacco Cessation at Discharge Tobacco Cessation Medication Prescribed at Discharge: Not Applicable/Non-Smoker Discharge Data Lab Results 01/16/23 01/16/23 01/16/23 13:10 13:10 14:37 WBC 9.70 RBC 4.77 Hgb 13.9 Hct 39.8 MCV 83.4 MCH 29.1 MCHC 34.9 RDW Std Deviation 38.7 RDW Coeff of Matt 12.8 Plt Count 378 MPV 9.8 Immature Gran % (Auto) 0.3 Neut % (Auto) 75.8 Lymph % (Auto) 15.9 [place] % (Auto) 7.5 Eos % (Auto) 0.1 Baso % (Auto) 0.4 Neut # (Auto) 7.35 H Lymph # (Auto) 1.54 [place] # (Auto) 0.73 H Eos # (Auto) 0.01 Baso # (Auto) 0.04 Immature Gran # (Auto) 0.03 Sodium Potassium Chloride Carbon Dioxide Anion Gap BUN Creatinine Est Cr Clr Drug Dosing Est GFR ( Amer) Est GFR (Non-Af Amer) BUN/Creatinine Ratio Glucose Fasting Glucose Calcium Total Bilirubin AST ALT Alkaline Phosphatase Total Protein Albumin Globulin Albumin/Globulin Ratio Triglycerides Cholesterol LDL Cholesterol, Calc VLDL Cholesterol, Calc HDL Cholesterol Cholesterol/HDL Ratio TSH Urine Color Yellow Urine Appearance Clear Urine pH 8.0 H Ur Specific [place] 1.012 Urine Protein Negative Urine Glucose (UA) Negative Urine Ketones Negative Urine Blood Negative Urine Nitrite Negative Urine Bilirubin Negative Urine Urobilinogen Negative Ur Leukocyte Esterase Negative Salicylates Urine Opiates Screen Neg Ur Methadone, Qual Neg Acetaminophen Urine Barbiturates Neg Ur Phencyclidine (PCP) Neg U Amphetamin/Meth Scrn Neg MDMA (Ecstasy) Screen Neg U Benzodiazepines Scrn Neg Ur Cocaine Metabolite Neg U Marijuana (THC) Screen Neg Ethyl Alcohol mg/dL SARS-CoV-2, RNA, NAAT 01/16/23 01/16/23 01/16/23 14:37 14:37 14:37 WBC RBC Hgb Hct MCV MCH MCHC RDW Std Deviation RDW Coeff of Matt Plt Count MPV Immature Gran % (Auto) Neut % (Auto) Lymph % (Auto) [place] % (Auto) Eos % (Auto) Baso % (Auto) Neut # (Auto) Lymph # (Auto) [place] # (Auto) Eos # (Auto) Baso # (Auto) Immature Gran # (Auto) Sodium 140 Potassium 3.9 Chloride 108 H Carbon Dioxide 20 L Anion Gap 12 H BUN 19 Creatinine 1.34 H Est Cr Clr Drug Dosing 41.9 Est GFR ( Amer) 51.2 Est GFR (Non-Af Amer) 44.2 BUN/Creatinine Ratio 14.2 Glucose 92 Fasting Glucose Calcium 10.5 H Total Bilirubin 0.5 AST 21 ALT 17 Alkaline Phosphatase 96 Total Protein 8.5 H Albumin 4.7 Globulin 3.8 Albumin/Globulin Ratio 1.2 Triglycerides Cholesterol LDL Cholesterol, Calc VLDL Cholesterol, Calc HDL Cholesterol Cholesterol/HDL Ratio TSH 0.914 Urine Color Urine Appearance Urine pH Ur Specific [place] Urine Protein Urine Glucose (UA) Urine Ketones Urine Blood Urine Nitrite Urine Bilirubin Urine Urobilinogen Ur Leukocyte Esterase Salicylates < 3.0 L Urine Opiates Screen Ur Methadone, Qual Acetaminophen < 3 L Urine Barbiturates Ur Phencyclidine (PCP) U Amphetamin/Meth Scrn MDMA (Ecstasy) Screen U Benzodiazepines Scrn Ur Cocaine Metabolite U Marijuana (THC) Screen Ethyl Alcohol mg/dL SARS-CoV-2, RNA, NAAT 01/16/23 01/16/23 01/17/23 14:37 14:37 07:46 WBC RBC Hgb Hct MCV MCH MCHC RDW Std Deviation RDW Coeff of Matt Plt Count MPV Immature Gran % (Auto) Neut % (Auto) Lymph % (Auto) [place] % (Auto) Eos % (Auto) Baso % (Auto) Neut # (Auto) Lymph # (Auto) [place] # (Auto) Eos # (Auto) Baso # (Auto) Immature Gran # (Auto) Sodium Potassium Chloride Carbon Dioxide Anion Gap BUN Creatinine Est Cr Clr Drug Dosing Est GFR ( Amer) Est GFR (Non-Af Amer) BUN/Creatinine Ratio Glucose Fasting Glucose 100 H Calcium Total Bilirubin AST ALT Alkaline Phosphatase Total Protein Albumin Globulin Albumin/Globulin Ratio Triglycerides 97 Cholesterol 149 LDL Cholesterol, Calc 73 VLDL Cholesterol, Calc 19 HDL Cholesterol 57 Cholesterol/HDL Ratio 2.6 TSH Urine Color Urine Appearance Urine pH Ur Specific [place] Urine Protein Urine Glucose (UA) Urine Ketones Urine Blood Urine Nitrite Urine Bilirubin Urine Urobilinogen Ur Leukocyte Esterase Salicylates Urine Opiates Screen Ur Methadone, Qual Acetaminophen Urine Barbiturates Ur Phencyclidine (PCP) U Amphetamin/Meth Scrn MDMA (Ecstasy) Screen U Benzodiazepines Scrn Ur Cocaine Metabolite U Marijuana (THC) Screen Ethyl Alcohol mg/dL < 10.0 SARS-CoV-2, RNA, NAAT NEGATIVE Hospital Course (1) Bipolar 1 disorder: (2) Akathisia: Plan 01/19/2023: She is refusing lamictal and refusing to consider any other medications for mood stabilization or to help with her auditory hallucinations. Agreeing to continue with propranolol. 01/18/2023: Start propranolol 10mg BID for akathisia. She is refusing to consider any other medications at this time. 01/17/2023: The patient was admitted to the [facility] unit) on q15 min checks (behavioral with suicide precautions) for safety. The patient will participate in group, recreational, and milieu therapies and will be offered additional individual and family sessions as clinically appropriate. Continue home medications save Caplyta as reportedly ineffective. Would recommend a retrial of olanzapine with samidorphan or typical antipsychotic for mood stabilization such as Trilafon. Mental Health & Subst Abuse Tx Psychiatrist Name of Psychiatrist: Dr. Fraser Psychiatrist's Psychiatric Appointment Comment: [address] [address] Psychiatrist Release of Information: Obtained, Reviewed and Signed Therapist Name of Therapist: Jolly Jo Therapist's Therapy Appointment Comment: Please resume your normal schedule. Therapist Release of Information: Obtained, Reviewed and Signed Casting Machine Control Board Operator Name of Casting Machine Control Board Operator: eRnzo Dias Phone Number for Casting Machine Control Board Operator: [phone] Case Management Appointment Comment: Please resume your normal schedule. Casting Machine Control Board Operator Release of Information: Obtained, Reviewed and Signed Post Discharge Appointments Primary Care Physician Name Of Family Doctor/PCP: R[facility]I [facility] Date of Future Appointment with PCP: [phone] Time of Appointment with PCP: Please follow-up with family doctor as needed. Provider Appointment Comment: [address], [place] [address] Smoking Cessation Counseling Tobacco Cessation Medication Prescribed at Discharge: Not Applicable/Non-Smoker Contact Information Discharge Discharge Address: [facility] Annika Griffiths [address] [address] Discharge Plan Discharge Items Patient Disposition: Home - Self-Care Reason For Visit: AGITATED,TROUBLE SLEEPING Discharge Diagnosis: Bipolar affective disorder Activity: Resume your previous activity Non-emergency contact: Primary Care Provider, Psychiatrist, Therapist and Vat Cleaner Call non-emergency contact if: you have any medication questions and your symptoms worsen Follow-up/Referrals: Jimmy Arceo DO [Primary Care Provider] - Diet: Regular Addtl Attending Provider Instructions: Optional mobile apps we discussed: -Suicide safety plan -Virtual Hope Box SPECIAL CARE INSTRUCTIONS: 1. Follow through with your scheduled aftercare appointments. If unable to keep an appointment, please call to reschedule. 2. Take your medication only as prescribed. Medication should not be changed or stopped without the approval of your doctor. In the event of worsening symptoms or concerns about side effects, contact your doctor immediately. 3. Utilize new healthy coping skills, anger management skills, and stress management skills learned during your hospitalization. Journal feelings and process them with a support person. Identify stressors or situations that may result in relapse, deterioration or inappropriate behaviors and develop a plan to deal with those issues. 4. If your coping skills are ineffective and you are in crisis, contact your outpatient providers for direction. If unable to reach your providers, please call the [facility] CRISIS LINE AT , go to the [facility] walk-in center at [address], [address], [place], or go to the closest Emergency Room. 5. Avoid alcohol and un-prescribed drugs. 6. You have been provided with the Mental Health Advance Directives Pamphlet for your review. 7. Your condition is stable for discharge to outpatient level of care, but recovery is an ongoing process. Ifthoughts to harm yourself or others return, follow the safety plan developed during your stay. Planning for a safe return home includes securing weapons. Our treatment team recommends weaponsbe removed from the home until your outpatient provider reassesses your progress. In rare cases where the items themselvescannot be removed, guns and ammunitionshould be secured separatelyand keys stored by a reliable personoutside of the home. If you were admitted on an involuntary commitment, the police or other legal authorities may be involved in this process. AFTERCARE APPOINTMENTS: * Please call your insurance company prior to your scheduled appointment to confirm your aftercare providers are covered. Take your insurance information to your appointments. WHO TO CALL AND WHEN: Medical Emergencies: For questions or emergencies related to your hospital stay, please contact the Inpatient Behavioral Health Unit at [phone]. A assembly machine feeder is on-call 17/02 for the Behavioral Health Unit for emergencies At any time you feel your situation is an emergency, you may also call 911 immediately. National Crisis Hotline: 293 Pending Studies at Discharge: No Stand-Alone Forms: [facility] Medications and DC Order Prescriptions: New propranolol 10 mg Tablet 10 mg PO BID 30 Days Qty: 60 0RF clonazepam 0.5 mg Tablet 0.5 mg PO BID 30 Days Qty: 60 0RF Continued Linzess 145 mcg capsule 145 mcg PO DAILY PRN (Reason: constipation) Qty: 30 0RF Rx Instructions: Take 1 tablet daily as needed until bowel movement achieved Gemtesa 75 mg tablet 75 mg PO DAILY Qty: 90 2RF lamotrigine 25 mg tablet 50 mg PO DAILY hydroxyzine pamoate [Vistaril] 25 mg capsule 25 mg PO TID PRN (Reason: Anxiety) Rx Instructions: 1-2 PRN prazosin 2 mg capsule 3 mg PO HS levothyroxine 50 mcg tablet 50 mcg PO DAILY lamotrigine 200 mg tablet 200 mg PO HS tramadol 50 mg Tablet 50 mg PO HS PRN (Reason: discomfort due to restless leg) Vitamin D3 50 mcg PO DAILY omeprazole 20 mcg PO DAILY Discontinued lorazepam [Ativan] 0.5 mg tablet 0.5 mg PO QID PRN (Reason: Anxiety) Caplyta 42 mg capsule 42 mg PO DAILY dexamethasone 0.5 mg/5 mL Elixir 0.5 mg PO BID Discharge Orders: Discharge Order (Routine); Ordered 01/20/23 Ordered By: Bryanna Dinero Admission Data Admit Date/Time: 01/16/23 16:41 Attending Provider: Bryanna Dinero Admit Provider: Joan Harris Primary Care Provider: Jimmy Arceo Other Interventions: Discharge Summary Assessment (RN) Last Done: 01/20/23 10:05 PSY Interdisciplinary Discharge Planning Last Done: 01/20/23 11:34 Coding Level of Care Code 14488 D/C day mgmt > 30 min Diagnoses Bipolar 1 disorder F31.9 Akathisia G25.71 Time Spent (min) 55
== END 2023-01-20 12:01 | disposition home or self-care (01) | DRG 885 ==
LOC: ED 12:53 → 3S 16:41 → SUATTDRO 16:41

== ENCOUNTER 2023-01-30 14:06 | Inpatient (IN) ==
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
[2023-01-30 14:49] LABS: Basophils # (auto) 0.05 K/uL (0-0.2); Basophils % (auto) 0.8 %; Eosinophils # (auto) 0.06 K/uL (0-0.50); Hemoglobin 12.7 g/dl (12.0-16.0); Immature Granulocytes # (auto) 0.04 K/uL (0.01-0.20); Immature Granulocytes % (auto) 0.7 %; Lymphocytes # (auto) 1.29 K/uL (1.2-3.4); Lymphocytes % (auto) 21.8 %; Mean Corpuscular Hemoglobin 29.4 pg (25.0-34.0); Mean Corpuscular Hgb Conc 34.3 g/dL (32.0-36.0); Mean Corpuscular Volume 85.6 fL (80.0-100.0); Mean Platelet Volume 9.9 fL (9.4-12.4); Monocytes # (auto) 0.47 K/uL (0.11-0.59); Monocytes % (auto) 7.9 %; Neutrophils # (auto) 4.01 K/uL (1.40-6.50); Neutrophils % (auto) 67.8 %; Platelet Count 284 K/uL (130-400); RDW Coefficient of Variation 12.8 % (11.5-14.5); RDW Standard Deviation 40.1 fL (36.4-46.3); Red Blood Count 4.32 M/uL (4.20-5.40); White Blood Count 5.92 K/ul (4.8-10.8)
[2023-01-30 15:05] LABS: Albumin Globulin Ratio 1.3 (0.9-2); Albumin Level 4.1 gm/dl (3.4-5.0); BUN Creatinine Ratio 15.5 (10-20); Bilirubin,Total 0.4 mg/dl (0.2-1.0); Calcium 9.2 mg/dl (8.6-10.3); Creatinine Clr Calc Pharmacy 49.6 ml/min; Est GFR (Non-African American) 52.6 ml/min; Globulin 3.2 gm/dl (2.5-4.0); Potassium 3.9 mmol/L (3.5-5.1); Total Protein 7.3 gm/dl (6.0-8.3)
[2023-01-30 15:07] LABS: Allen Test POS (Pos); HCO3 ABG 26 mmol/L (19-24); Oxygen Saturation ABG 99.5 % (90-95); PCO2 ABG 42 mmHg (35-46); PO2 ABG 94 mmHg (80-95)
[2023-01-30 15:50] LABS: Acetaminophen < 3 ug/ml (10-30); Salicylate < 3.0 mg/dl (3.0-30)
[2023-01-30 17:14] LABS: Appearance Urine Clear (Clear); Bacteria Urine Automated Negative (Negative); Bilirubin Urine Negative (Negative); Blood Urine Negative (Negative); Color Urine Yellow; Epithelial Cell Urine Auto 20-30 /lpf (0-5); Glucose Urine UA Negative (Negative); Ketones Urine Negative (Negative); Leukocyte Esterase Urine 3+ (Negative); Nitrite Urine Negative (Negative); Protein Urine Negative (Negative); RBC Urine Automated 0-4 /hpf (0-4); Specific Gravity Urine 1.008 (1.000-1.030); Urobilinogen Urine Negative (Negative); pH Urine 7.5 (4.5-7.5)
[2023-01-30 17:27] LABS: Partial Thromboplastin Ratio 0.8; Partial Thromboplastin Time 23.8 Seconds (21.0-31.0); Prothrombin Time 10.9 Seconds (9.0-12.0)
[2023-01-30] MEDS ORDERED: ACETYLCYSTEINE IV ONE (17:57)
[2023-01-30] MEDS ORDERED: DEXTROSE 5% IV ONE (17:57)
[2023-01-30 18:08] LABS: Amphetamines+Metham, Urine Neg (Neg); Barbiturates, Urine Neg (Neg); Benzodiazepine, Urine Neg (Neg); Cocaine, Urine Neg (Neg); MDMA (Ecstacy), Urine Neg (Neg); Methadone, Urine Neg (Neg); Opiate, Urine Neg (Neg); Phencyclidine, Urine Neg (Neg)
--- NOTE | 2023-01-30 18:19 | History & Physical Report ---
Date of Service January 30, 2023 Assessment & Plan (1) Overdose: (2) Hypothyroidism: (3) Chronic kidney disease, stage III (moderate): (4) Bipolar 1 disorder: (5) RLS (restless legs syndrome): (6) Transaminitis: Plan Nuvia is a 58 year-old female with past medical history of bipolar 1 disorder, CKD stage 3, MONICO, restless leg syndrome, hypothyroidism, and macular degeneration. She presented to the ED with her case monitor after consuming a "handful" of her prescription medications. Polysubstance Overdose, Intentional -Consumed 35-40 tablets of 0.5mg Klonopin, 10mg Zyprexa, 10mg propranolol, 50mg of Vistaril at around noon today and 5mg of Klonopin, 50mg Tramadol, 50mg Vistaril, and 10mg propranolol last night. -Elevated liver enzymes, AST: 219, ALT: 292. Tylenol level neg. -Discussed with Poison Control, patient started on NAC 21 hour protocol -Received loading dose 150mg/kg over 60 min (started at approximately 18:00) -Plan for 3 hr dose: 50mg/kg over 4hr -Plan for 16 hr dose: 100mg/kg over 16 hr -Repeat LFTs and coags at hour 12 of this dose (approx. 12pm) -Suspect elevated liver enzymes secondary to overdose, but would consider other possible etiologies -Will order CPK, hepatitis panel, and liver ultrasound -No prior history of seizures, but with benzo overdose will keep seizure precautions on AWSS protocol with Ativan as needed -QTc WNL, will repeat EKG in a.m. -Suicide checks, 1:1 -Will continue Zyprexa for now, hold Klonopin, hydroxyzine, tramadol -Psychiatry consulted Hypothyroidism -Continue home levothyroxine Urinary Incontinence -Continue Gemtesa Diet: regular Code Status: Full Code Dispo: PCU History of Present Illness Primary Care Provider: Jimmy Arceo DO Nuvia is a 58 year-old female with past medical history of bipolar 1 disorder, CKD stage 3, MONICO, restless leg syndrome, hypothyroidism, and macular degeneration. She states she took 35-40 Klonopin (all of the remaining 0.5mg tablets she had) at around noon today. She also states that she took 5mg of the Klonopin last night because she felt an "overwhelming feeling of suicidal thoughts" and felt that this would calm her down. States she did not intend to , if she was trying to she "would've taken the Tramadol" instead. She denies any alcohol use, marijuana or recreational drug use. Denies taking any aspirin, Tylenol, Benadryl, or over the counter meds at the same time. She endorses current suicidal ideation but denies homicidal ideation. Denies visual or auditory hallucinations. She denies any history of prior seizures. She states that life had been better around as she weaned her self off of her Invega, as she states god told her to stop her meds- until she started to have anger issues and has become manic. She was recently admitted to inpatient psychiatry from 01/17-01/20/23.She states that he medications make her feel "dumb" and unable to do her job, she currently works at the [employer] She follows with her psychiatrist, Dr. Fraser. Allergies Allergy/AdvReac Type Severity Reaction Status Date / Time gabapentin Allergy Mild makes her Verified 01/30/23 19:43 manic lurasidone [From Latuda] Allergy Mild Hallucinati Verified 01/30/23 19:43 ng quetiapine [From Seroquel] Allergy Unknown Unknown Verified 01/30/23 19:43 Home Medications Medication Instructions Recorded Confirmed Type levothyroxine 50 mcg tablet 50 mcg PO QAM 05/18/19 01/30/23 History prazosin 2 mg capsule 3 mg PO HS 04/04/21 01/30/23 History hydroxyzine pamoate 25 mg capsule 25 mg PO TID PRN Anxiety 08/29/21 01/30/23 History (Vistaril) tramadol 50 mg tablet 50 mg PO HS 01/17/23 01/30/23 History clonazepam 0.5 mg tablet 0.5 mg PO BID BPAD 30 days #60 tabs 01/20/23 01/30/23 Rx propranolol 10 mg tablet 10 mg PO BID akthisia 30 days #60 01/20/23 01/30/23 Rx tabs lorazepam 0.5 mg tablet (Ativan) 0.5 mg PO TID PRN Anxiety 01/24/23 01/30/23 History olanzapine 10 mg tablet (Zyprexa) 10 mg PO HS 01/24/23 01/30/23 History vibegron 75 mg tablet (Gemtesa) 75 mg PO QAM 01/24/23 01/30/23 History Past Med/Surg History Medical History Bipolar disorder followed by Rasheed Hidalgo Chronic kidney disease, stage III (moderate) Generalized anxiety disorder GERD (gastroesophageal reflux disease) History of anemia Hypothyroidism Insulin resistance Macular degeneration "mild form" MONICO (obstructive sleep apnea) cpap Post traumatic stress disorder RLS (restless legs syndrome) Schizophrenia, paranoid, chronic with acute exacerbation Urinary incontinence "periodically" Surgical History History of delivery x 1 History of cholecystectomy History of colonoscopy History of tonsillectomy [facility] teeth extracted Family History Father Hypertension Heart disease Mother Afib Stroke Crohn's disease Breast cancer Alzheimer disease Grandfather Stroke Prostate cancer Skin cancer (melanoma) Grandmother Cancer blood cancer Bipolar disorder Grandmother (Maternal) Alzheimer disease Breast cancer Grandfather (Paternal) Hypertension Stroke Grandfather (Maternal) Lung cancer Prostate cancer Skin cancer (melanoma) Denies family history of Ovarian cancer Diabetes Myocardial infarction Colorectal cancer Social History Smoking Status: Never smoker Second Hand Exposure: No; Do You Dip or Chew Tobacco: No; Hx Alcohol Use: No Hx Substance Use: No Preferred Language: Arabic Communication Ability: Effective Visual Impairment: Limited Hearing Ability: Normal Administrative Professional Required: No Beliefs That Will Affect Care: None marital status: Current Living Situation: Alone Current Living Situation Comment: Lives home [place] current occupational status: employed current occupation: [employer] How many Children do You have: 2 Other Information That Helps Us Care for You: No Feels Safe at Home: Yes Safety Concerns: Feels Safe At This Time Childhood Exposure to Second-Hand Smoke: No Diet: regular caffeine: No Dental Care, Regularly: No Physical Activity Frequency: Does not Exercise Seatbelt Use: always Sunscreen Use: Yes (sometimes) Gender Identity: Female Assistive Devices: CPAP and Glasses Review of Systems Review of Systems: As per above Physical Exam Constitutional: + disheveled and + in distress Eyes: PERRL, conjunctivae normal, anicteric sclerae ENMT: External ears and nose normal. Moist mucous membranes. Respiratory: normal respiratory effort, lungs clear to auscultation Cardiovascular: RRR, no murmur, no edema Gastrointestinal (Abdomen): Abdomen soft, nontender. No masses palpated. Skin: no rashes, warm and dry Neurologic: no focal motor deficits Psychiatric: Apperance: + disheveled Affect: + depressed affect and + anxious affect Mood: + depressed mood and + anxious mood Suicidal Thoughts: + reports suicidal thoughts Homicidal Thoughts: denies homicidal thoughts Results & Data Results & Data Vital Signs (Past 12 Hours) Vital Signs Temp Pulse Pulse Resp BP BP Pulse Ox 01/30/23 17:35 82 16 01/30/23 17:34 73 10 L 01/30/23 17:30 76 23 101/58 L 01/30/23 17:30 94/54 L 01/30/23 17:15 74 22 01/30/23 17:00 96/59 L 01/30/23 16:45 79 30 H 106/67 98 01/30/23 16:30 78 36 H 01/30/23 16:15 81 14 01/30/23 16:00 85 17 01/30/23 15:15 78 16 112/69 100 01/30/23 14:45 86 16 93/75 L 99 01/30/23 16:00 76 16 106/67 97 01/30/23 16:00 01/30/23 14:30 82 22 97 01/30/23 14:26 92 H 17 97 01/30/23 14:31 91 H 01/30/23 14:12 36.6 C 92 H 16 119/83 97 O2 Del Method 01/30/23 17:35 01/30/23 17:34 01/30/23 17:30 01/30/23 17:30 01/30/23 17:15 01/30/23 17:00 01/30/23 16:45 01/30/23 16:30 01/30/23 16:15 01/30/23 16:00 01/30/23 15:15 01/30/23 14:45 01/30/23 16:00 Room Air 01/30/23 16:00 Room Air 01/30/23 14:30 01/30/23 14:26 01/30/23 14:31 01/30/23 14:12 Supervising Physician Co-Signing Physician Notes Patient seen and examined, chart reviewed, case discussed with Dr. Mckeon and I agree with the assessment and plan as above except as otherwise noted Labs and images reviewed Endorses long history of metabolic disorder, suicidality, and benzodiazepine use. She reports that she did not have the intention to kill herself but also did not care if she lived and took up to 40 half milligram tablets of clonazepam in addition to other medications as noted above. Ingestion was at noon she notes that while her psychiatrist disagreed with weaning, she weaned off of her risperidone and is now only on Zyprexa and feels much more clear. Denies Tylenol/aspirin or recreational drug ingestion. At bedside is withdrawn, voice is soft. Heart rate is regular, lungs are grossly clear. On lab review does have a new transaminitis somewhat atypical given the medications that she endorses (Vistaril/Zyprexa/tramadol/Klonopin). Given that she is not a reliable historian agree with obtaining liver ultrasound and acute hepatic panel for completion, and continuing NAC protocol at this time. Psych consulted, requires suicide precautions and one-to-one at this time. Agree with assessment and management as above. Open case with poison control is being followed. She does not have a prolonged QT. Given that her ingestion occurred less than 8 hours ago will defer scheduled benzo use, and add on VERNA S protocol for signs of withdrawal and readjust as needed based on progression and reevaluation in the morning. Resident Activity Tracking Resident Involvement: Resident Care Provided Care Provided: Adult Hospital Medicine
[2023-01-30] MEDS ORDERED: LORazepam 2 MG/1 ML VIAL IV PRN (22:10)
[2023-01-30] MEDS ORDERED: Ativan IV Alcohol Withdrawal--Active Protocol IV PRN (22:10)
[2023-01-30] MEDS ORDERED: DEXTROSE 5% IV STA (22:17)
[2023-01-30] MEDS ORDERED: ACETYLCYSTEINE IV STA (22:17)
--- NOTE | 2023-01-30 22:29 | Ultrasound Report ---
Exam(s): US LIVER EXAM: US Abdomen Limited CLINICAL HISTORY: Reason for exam: transaminitis. TECHNIQUE: Real-time ultrasound of the abdomen with image documentation. COMPARISON: No relevant prior studies available. FINDINGS: Gallbladder: Gallbladder has been removed. Common bile duct: Common bile duct measures 5.1 mm. Kidneys: Right kidney measures 10.6 cm. Kidney parenchyma is echogenic consistent with medical renal disease. 0.5 cm echogenic foci consistent with a nonobstructing mid right renal calculus. IMPRESSION: 0.5 cm echogenic foci consistent with a nonobstructing mid right renal calculus. Echogenic parenchyma of the right kidney consistent with medical renal disease. Electronically signed by: Helder Mathew M.D. 01/30/23 22:28 PM
[2023-01-30] MEDS: PRAZOSIN HCL 1 MG CAP PO SCH (22:42)
[2023-01-31] MEDS: OLANZapine 10 MG TAB PO SCH ×2 (00:36→21:49)
[2023-01-31] MEDS: PROPRANOLOL HCL 10 MG TAB PO SCH ×3 (00:36→21:49)
[2023-01-31] MEDS ORDERED: ACETYLCYSTEINE IV ONE (02:00)
[2023-01-31] MEDS ORDERED: DEXTROSE 5% IV ONE (02:00)
[2023-01-31] MEDS: LEVOTHYROXINE SODIUM 50 MCG TABLET PO SCH (05:48)
[2023-01-31] MEDS: VIBEGRON 75 MG TAB PO SCH (08:09)
--- NOTE | 2023-01-31 13:05 | Discharge Summary ---
Date of Service January 31, 2023 Admission HPI Per Admitting Provider Nuvia is a 58 year-old female with past medical history of bipolar 1 disorder, CKD stage 3, MONICO, restless leg syndrome, hypothyroidism, and macular degeneration. She states she took 35-40 Klonopin (all of the remaining 0.5mg tablets she had) at around noon today. She also states that she took 5mg of the Klonopin last night because she felt an "overwhelming feeling of suicidal thoughts" and felt that this would calm her down. States she did not intend to , if she was trying to she "would've taken the Tramadol" instead. She denies any alcohol use, marijuana or recreational drug use. Denies taking any aspirin, Tylenol, Benadryl, or over the counter meds at the same time. She endorses current suicidal ideation but denies homicidal ideation. Denies visual or auditory hallucinations. She denies any history of prior seizures. She states that life had been better around October/November as she weaned her self off of her Invega, as she states god told her to stop her meds- until she started to have anger issues and has become manic. She was recently admitted to inpatient psychiatry from 01/17-01/20/23.She states that he medications make her feel "dumb" and unable to do her job, she currently works at the [employer]. She follows with her psychiatrist, Dr. Fraser. Principal Diagnosis See attending attestation Discharge Exam Patient refused physical exam. Discharge Data Allergies Allergy/AdvReac Type Severity Reaction Status Date / Time gabapentin Allergy Mild makes her Verified 01/30/23 19:43 manic lurasidone [From Latuda] Allergy Mild Hallucinati Verified 01/30/23 19:43 ng quetiapine [From Seroquel] Allergy Unknown Unknown Verified 01/30/23 19:43 Consultations 01/30/23 18:05 ED Decision to Admit Stat 01/30/23 20:25 Consult Behavioral Health Liaison Routine 01/30/23 22:10 Consult Psychiatry Routine 01/30/23 22:32 Consult Behavioral Health Liaison Routine Procedures Performed Operation Date: 02/03/23 14:50 <No data on this case meets the specified criteria> Ordered Studies 01/30/23 20:17 US liver Urgent Hospital Course (1) Overdose: (2) Hypothyroidism: (3) Chronic kidney disease, stage III (moderate): (4) Bipolar 1 disorder: (5) RLS (restless legs syndrome): (6) Transaminitis: Plan Nuvia is a 58 year-old female with past medical history of bipolar 1 disorder, CKD stage 3, MONICO, restless leg syndrome, hypothyroidism, and macular degeneration. She presented to the ED with her case operator after consuming a "handful" of her prescription medications. Polysubstance Overdose, Intentional Patient consumed 35-40 tablets of 0.5mg Klonopin, 10mg Zyprexa, 10mg propranolol, 50mg of Vistaril at around noon today and 5mg of Klonopin, 50mg Tramadol, 50mg Vistaril, and 10mg propranolol the night before admission EKG QTc WNL. Elevated liver enzymes, AST: 219, ALT: 292. Tylenol level neg. Discussed with Poison Control, patient started on NAC 21 hour protocol Received loading dose 150mg/kg over 60 min, then 3 hr dose: 50mg/kg over 4h, then 16 hr dose: 100mg/kg over 16 hr Suspect elevated liver enzymes secondary to overdose. Liver U/S showed 0.5 cm kidney stone. Hepatitis panel pending. She was discharged to psychiatry. Chronic conditions: Hypothyroidism - Continued home levothyroxine Urinary Incontinence - Continued home Gemtesa Total Time Total Time Spent Total Time Spent (In Minutes): See attending attestation Discharge Plan Discharge Items Reason For Visit: OVERDOSE Activity: Per Instructions section Follow-up/Referrals: Jimmy Arceo DO [Primary Care Provider] - Medications and DC Order Prescriptions: No Action hydroxyzine pamoate [Vistaril] 25 mg capsule 25 mg PO TID PRN (Reason: Anxiety) Rx Instructions: 1-2 PRN prazosin 2 mg capsule 3 mg PO HS levothyroxine 50 mcg tablet 50 mcg PO QAM olanzapine [Zyprexa] 10 mg Tablet 10 mg PO HS lorazepam [Ativan] 0.5 mg Tablet 0.5 mg PO TID PRN (Reason: Anxiety) Gemtesa 75 mg tablet 75 mg PO QAM tramadol 50 mg Tablet 50 mg PO HS propranolol 10 mg Tablet 10 mg PO BID 30 Days Qty: 60 0RF clonazepam 0.5 mg Tablet 0.5 mg PO BID 30 Days Qty: 60 0RF Admission Data Admit Date/Time: 01/30/23 19:35 Attending Provider: Freddy Ruiz Admit Provider: Helen Cooley Primary Care Provider: Jimmy Arceo Other Providers: Fabiano Eason ; Bryanna Dinero ; Joan Harris ; Geovanni Amin ; Gisselle Adkins
[2023-01-31 14:56] LABS: Albumin Level 3.6 gm/dl (3.4-5.0); Bilirubin Direct 0.1 mg/dl (0-0.2); Bilirubin,Total 0.3 mg/dl (0.2-1.0); Total Protein 6.5 gm/dl (6.0-8.3)
[2023-01-31 15:14] LABS: INR 1.1 (0.9-1.1); Prothrombin Time 11.5 Seconds (9.0-12.0)
--- NOTE | 2023-01-31 16:01 | Hospitalist Progress Note ---
Date of Service January 31, 2023 Assessment & Plan (1) Transaminitis: (2) Overdose: (3) Urinary incontinence: (4) Hypothyroidism: Plan Nuvia is a 58 year-old female with past medical history of bipolar 1 disorder, CKD stage 3, MONICO, restless leg syndrome, hypothyroidism, and macular degeneration. She presented to the ED with her corrections caseworker after consuming a "handful" of her prescription medications. Polysubstance Overdose, Intentional Patient consumed 35-40 tablets of 0.5mg Klonopin, 10mg Zyprexa, 10mg propranolol, 50mg of Vistaril at around noon today and 5mg of Klonopin, 50mg Tramadol, 50mg Vistaril, and 10mg propranolol the night before admission EKG QTc WNL. Elevated liver enzymes, AST: 219, ALT: 292. Tylenol level neg. Discussed with Poison Control, patient started on NAC 21 hour protocol - Received loading dose 150mg/kg over 60 min - then 3 hr dose: 50mg/kg over 4h - continuing 16 hr dose: 100mg/kg over 16 hr Suspect elevated liver enzymes secondary to overdose. Liver U/S showed 0.5 cm kidney stone. Hepatitis panel pending. - Needs transfer to Psych Inpatient Chronic conditions: Hypothyroidism - Continued home levothyroxine Urinary Incontinence - Continued home Gemtesa Admission and Anticipated Discharge Date Admission Date: January 30, 2023 Supervising Physician Co-Signing Physician Notes I personally examined the patient and verified all bhatt points of history and exam, discussed case, and agree with decision making with Albino Anthony MS4 and Dr Caruso sleeping. no new issues noted. still angry, still talking suicidal per liaison - allowed to rest given the circumstances. vitals noted, breathing un labored. Skin without rashes pallor or icterus. Polysubstance overdosetransaminitis nonspecific, poison control recommended NACalthough ruling fortunately acetaminophen levels are negative. Reasonable. Fortunately I suspect it is nonspecific. Overdose appears to be improving. Anticipate inpatient psychiatry stay, given her ongoing active suicidal expressions as outlined by the rest of the care team. Otherwise as above. Subjective Today, she was feeling well. Was wanting to leave. Review of Systems Constitutional: Denied fever, night sweats, fatigue, weakness, dizziness Respiratory: Denied cough or shortness of breath. Cardiovascular: Additional Comments: Denied chest pain, palpitations Gastrointestinal: Denied nausea, vomiting, diarrhea, abdominal pain. Physical Exam Physical Exam: Patient refused physical exam Constitutional: Disheveled, Alert Oriented x3 Eyes: Pupils Equal Round Respiratory: No labored breathing Cardiovascular: Clinically well perfused, Skin: warm dry, no rashes noted. Neurologic: No focal neurological defincys. Results & Data Results & Data Vital Signs (Past 12 Hours) Vital Signs Temp Pulse Resp BP Pulse Ox O2 Del Method 01/31/23 15:20 36.8 C 96 H 19 97/69 L 95 Room Air 01/31/23 11:36 36.2 C L 82 18 93/61 L 96 Room Air 01/31/23 07:08 36.5 C 107 H 19 97/67 L 94 Room Air (3) Urinary incontinence Urinary Incontinence type: urge incontinence Qualified Code(s): N39.41 - Urge incontinence
--- NOTE | 2023-01-31 17:35 | Psychiatric Consultation ---
Date of Consultation January 31, 2023 Impression / Recommendations Impression 58 y/o F with Bipolar I Disorder and a history of a very large number of medication trials that have typically been ineffective or had intolerable side effects. Recent medication changes appear to have precipitated decompensation. She is now admitted to the medical unit following a medication overingestion of unclear size but has not been evidencing any toxidrome. She seems to recognize the need to resume inpatient treatment but is very ambivalent about that and unable to maintain consistent endorsement of and agreement to such a plan. A recent psychiatric admission here was very problematic because CPAP cannot be accommodated on that unit and pt insisted she could not remain without using it (and, with MONICO, she should not sleep without using it). In my opinion she does require inpatient psychiatric treatment, and that cannot be done here. She has a long list of failed medication trials or intolerable side effects which suggests that the focus of any medication interventions right now should be on acute intervention with immediate problems and not attempting to start any long-term or definitive treatment. (1) Bipolar 1 disorder: Plan Requires psychiatric admission. Although she at times voices agreement with or desire for this, such agreement has fluctuated markedly and I do not believe she can currently provide informed consent due to her marked mood lability. She does meet criteria for part 302 emergency involuntary psychiatric admission. * Continuing the ordered olanzapine 10 mg QHS, prazosin 3 mg QHS, and propranolol 10 mg BID makes sense * I strongly endorse the decision not to try to resume lamotrigine, which she's stopped multiple times in the past * I agree with the ordered lorazepam 2 mg IM Q5 HR PRN. While this has issues of its own, her experiences with antipsychotic medications suggest trying to use one as a PRN would be complicated and unsatisfactory Psych History Identifying Data JIM JUAREZ is a 58-year-old F with a history of Bipolar I Disorder, admitted on 01/30/2023 for multi-drug overdose. Consult is by the hospitalist service for "intentional overdose". Chief Complaint "[]". History of Present Illness As part of a thorough review of the available medical records, I have read and confirmed the following note by the : "58-year-old female who presented to the emergency department after a suicidal gesture. The patient has had similar episodes in the past. She has been seen in our facility for anxiety as well as depression. Patient states that she wanted to go to sleep. She took 5 mg of Klonopin 50 mg of Vistaril 10 mg of Zyprexa 10 mg of propanolol and 50 mg of tramadol last evening. Then at approximately 2 PM today she took handful of 0.5 mg Klonopin and thinks this could have been approximately 30 to 40 tablets. She also took her usual medications which include 10 mg of propanolol 75 mg Zyprexa and 25 of Vistaril. She called her director case management and was brought to the emergency department immediately." the following note by the ED psychiatric director case management: "Met with patient to complete brief mental health evaluation. She admits to feeling suicidal last night and ingesting multiple prescription medications as an intentional overdose. She reached out to her director case management through her insurance and spoke to them for two hours regarding her thoughts. She was advised to contact her psychiatrist who directed her to the ED. She did not want to come seek help. She then talked to the [email or web address] director case management president celebrity acquistion. Crisis at some point called to check on her and made a statement like, "Time will make everything better." Pt felt this was inappropriate to say and triggered her so she hung up. Pt then took additional pills today, including 30-40 tablets of Klonopin." and the following note by the psychiatric liaison nurses: "Known to [facility] from recent admission on 3S. Pt. sitting in bed while talking 1:1 who was sitting at bedside. Pt. irritable about situation but overall calm and cooperative while speaking with liaison. Alert and oriented x4. 2E nurse contacted [facility] regarding pt. trying to leave AMA before liaison met with pt. Liaison explained circumstances with pt. about the potential of becoming involuntary if she would try to leave AMA. Pt. stated she would like to remain voluntary in the hospital at this time. Pt. initially irritated of how she is in the hospital and doesn't know anything about the status of her care and her liver. Pt. appears to confuse her facts at times. Appeared to have slow speech and some thought blocking. Pt. contradicting herself throughout the conversation. Pt. stated that she was not suicidal and she just took the overdose of Klonopin (30-40 tablets), and other medication to sleep. Pt. also stated that she wanted to sleep and not wake up as an act of suicide. Pt. confused occasionally with the particular medication she was addressing. Overall pt. stated she felt good being on her Invega. She felt happy, focused, and confident about herself while having conversations specifically at work . Pt. stated the Invega, along with other medications, caused her to have incontinence. Pt. Said she stopped taking the Invega which had caused her to become more depressed and caused her to miss work. Pt. states she likes to live for work and her (adult) children. Pt. advised to call 911 after speaking with her director case management, who she told her concerns, suicidal thoughts and the overdose to. Pt. said her friend, who lives close, took her to the ED. Pt. states she still has current SI and states she has a wasted life. Denies HI. States she has times of hallucinations and delusions when she becomes severely depressed but her depression has not come to that point. Reports having decreased interest, energy, and sleep. Reports feeling restless. She feels like she does well with her outpatient providers but irritated that her pcp was informed of her stay on 3S after discharge. She feels like her pcp does not need to be involved with these matters. Pt. also feels she needs a medication adjustment. When ROIs are brought to pt. she requests she not sign one for her pcp but is comfortable with other outpatient providers." "She is well known to service from previous admissions, most recently 01/16- 01/20. Patient reports taking "34-40 klonopin to sleep". When questioned if she had any intentions on dying patient replied, "I don't want to keep living". When asked again, she stated, "I think it means the same thing". She feels "it wasn't a good idea to stop the lamictal", of note, patient refused her prescribed lamictal while inpatient on 3 (self discontinued). Patient also notes that she "has no desire to restart lamictal". When asked if she felt she needed inpatient treatment, she stated, "I don't think I should go home. Things have been going down hill. I stopped showering and stopped opening my blinds in the morning"." Review of the medical record reveals very recent psychiatric admission during which she was very help-rejecting and from which she insisted on leaving prematurely because her desire to use CPAP (which in itself is certainly highly appropriate) could not be accommodated. Pt. carries diagnosis of Bipolar I Disorder. Review of pertinent labs reveals they are noncontributory except for elevated transaminases. Urine toxicology screen was negative for all tested substrates (including benzodiazepines, though clonazepam is a very common false-negative). BAL was <10 mg/dL. Pt reports having overingested prescribed medications consisting of fairly typical doses of a number of medications that may have been in addition to prescribed doses, then later taking "a handful of Klonopins". She then immediately contacted her director case management who brought her to the ED. Much of what she's reported since has been somewhat plastic and internally contradictory. At times she is unnecessarily evasive and ambiguous and uses impressionistic phrasing that isn't actually very responsive. She has continued to voice suicidal thoughts and intentions but has also loudly demanded discharge. Pt is markedly help-rejecting - eg, says she can't sleep without CPAP but doesn't want to use a hospital machine and offers various reasons why a friend can't bring hers, wants a med for sleep, then says only one medication has ever worked for her and that she can't take that. Past Psychiatric History Current Psychiatric Diagnosis: Bipolar I Disorder Previous Psych Admissions: [facility] 2008X2, 2009X2, 2010, 2011, 2013X3, 2014X2, 2016, and 12/2022; [facility] 2018. Do You Have Access To A Gun?: No History of Previous Suicide Attempt: Yes (1996 while hospitalized (cut), 2017 (near OD attempt)) Past Medication Trials: anxiolytics: clonazepam, lorazepam, gabapentin, temazepam antidepressants: fluoxetine, venlafaxine, amitriptyline, bupropion, trazodone mood stabilizers: lithium, carbamazepine, divalproex, lamotrigine antipsychotics: chlorpromazine, haloperidol, aripiprazole, brexpiprazole, cariprazine, lumateperone, lurasidone, olanzapine ("most helpful" per Dr. Fraser but gained 60 lbs), paliperidone (urinary), quetiapine, risperidone (urinary), ziprasidone other: benztropine, amantadine, trihexyphenidyl, pramipexole, modafinil, zolpidem, prazosin Allergies Allergy/AdvReac Type Severity Reaction Status Date / Time gabapentin Allergy Mild makes her Verified 01/30/23 19:43 manic lurasidone [From Latuda] Allergy Mild Hallucinati Verified 01/30/23 19:43 ng quetiapine [From Seroquel] Allergy Unknown Unknown Verified 01/30/23 19:43 Home Medications Medication Instructions Recorded Confirmed Type levothyroxine 50 mcg tablet 50 mcg PO QAM 05/18/19 01/30/23 History prazosin 2 mg capsule 3 mg PO HS 04/04/21 01/30/23 History hydroxyzine pamoate 25 mg capsule 25 mg PO TID PRN Anxiety 08/29/21 01/30/23 History (Vistaril) tramadol 50 mg tablet 50 mg PO HS 01/17/23 01/30/23 History clonazepam 0.5 mg tablet 0.5 mg PO BID BPAD 30 days #60 tabs 01/20/23 01/30/23 Rx propranolol 10 mg tablet 10 mg PO BID akthisia 30 days #60 01/20/23 01/30/23 Rx tabs lorazepam 0.5 mg tablet (Ativan) 0.5 mg PO TID PRN Anxiety 01/24/23 01/30/23 History olanzapine 10 mg tablet (Zyprexa) 10 mg PO HS 01/24/23 01/30/23 History vibegron 75 mg tablet (Gemtesa) 75 mg PO QAM 01/24/23 01/30/23 History Patient History Medical History Bipolar disorder followed by [facility] Hidalgo Chronic kidney disease, stage III (moderate) Generalized anxiety disorder GERD (gastroesophageal reflux disease) History of anemia Hypothyroidism Insulin resistance Macular degeneration "mild form" MONICO (obstructive sleep apnea) cpap Post traumatic stress disorder RLS (restless legs syndrome) Schizophrenia, paranoid, chronic with acute exacerbation Urinary incontinence "periodically" Surgical History History of delivery x 1 History of cholecystectomy History of colonoscopy History of tonsillectomy [place] teeth extracted Family History Father Hypertension Heart disease Mother Afib Stroke Crohn's disease Breast cancer Alzheimer disease Grandfather Stroke Prostate cancer Skin cancer (melanoma) Grandmother Cancer blood cancer Bipolar disorder Grandmother (Maternal) Alzheimer disease Breast cancer Grandfather (Paternal) Hypertension Stroke Grandfather (Maternal) Lung cancer Prostate cancer Skin cancer (melanoma) Denies family history of Ovarian cancer Diabetes Myocardial infarction Colorectal cancer Social History Smoking Status: Never smoker Second Hand Exposure: No; Do You Dip or Chew Tobacco: No; Hx Alcohol Use: No Hx Substance Use: No Preferred Language: Guamanian Communication Ability: Effective Visual Impairment: Limited Hearing Ability: Normal Construction Skills Teacher Required: No Beliefs That Will Affect Care: None marital status: Current Living Situation: Alone Current Living Situation Comment: Lives home [place] current occupational status: employed current occupation: [employer] How many Children do You have: 2 Other Information That Helps Us Care for You: No Feels Safe at Home: Yes Safety Concerns: Feels Safe At This Time Childhood Exposure to Second-Hand Smoke: No Diet: regular caffeine: No Dental Care, Regularly: No Physical Activity Frequency: Does not Exercise Seatbelt Use: always Sunscreen Use: Yes (sometimes) Gender Identity: Female Assistive Devices: None Physical Exam Psychiatric: Orientation: oriented to person, oriented to place, oriented to time and + guarded; + not alert (drowsy) Apperance: appropriately dressed and appropriately groomed Eye Contact: + poor eye contact Motor Behavior: no abnormal motor movements Speech: + abnormal rate/rhythm/volume of speech (slow, quiet, brief) Affect: + constricted affect Mood: + irritable mood and + dysphoric mood Thought Process: + circumstantial thought process and + tangential thought process Thought Content: + cognitive distortions Suicidal Thoughts: denies suicidal intent; + reports suicidal thoughts and + reports suicidal plan Homicidal Thoughts: denies homicidal thoughts Hallucinations: no auditory hallucinations and no visual hallucinations Cognition: recent memory grossly intact and remote memory grossly intact; + attention not intact Estimated Intelligence: average estimated intelligence Insight: + impaired insight Judgment: + impaired judgement Vital Signs (Past 24 Hours): Last Vital Signs Temp 36.8 C 01/31/23 15:20 Pulse 96 H 01/31/23 15:20 Resp 19 01/31/23 15:20 BP 97/69 L 01/31/23 15:20 Pulse Ox 95 01/31/23 15:20 O2 Del Method Room Air 01/31/23 15:20 Results & Data (PSY) Medications Administered Acetylcysteine 7,340 mg/ (Dextrose) 1,036.7 mls @ 62.5 mls/hr IV ONE ONE; Protocol Stop: 01/31/23 18:35 Last Admin: 01/31/23 03:00 Dose: 62.5 mls/hr Documented By: NELSON Levothyroxine Sodium (Levothyroxine Sodium 50 Mcg Tablet) 50 mcg PO DAILYBB CHRISTINE Stop: 03/02/23 06:29 Last Admin: 01/31/23 05:48 Dose: 50 mcg Documented By: NELSON Olanzapine (Olanzapine 10 Mg Tab) 10 mg PO HS [facility] Stop: 03/01/23 22:09 Last Admin: 01/31/23 00:36 Dose: Not Given Documented By: NELSON Prazosin HCl (Prazosin Hcl 1 Mg Cap) 3 mg PO HS [facility] Stop: 03/01/23 22:09 Last Admin: 01/30/23 22:42 Dose: 3 mg Documented By: NELSON Propranolol HCl (Propranolol Hcl 10 Mg Tab) 10 mg PO BID CHRISTINE Stop: 03/01/23 22:09 Last Admin: 01/31/23 08:06 Dose: Not Given Documented By: Admin: 01/31/23 00:36 Dose: Not Given Documented By: NELSON Vibegron (Vibegron 75 Mg Tab) [facility] [place]: 03/02/23 08:59 Last Admin: 01/31/23 08:09 Dose: 75 mg Documented By: Coding Level of Care Code 68462 [facility] Intl Hosp Care Lvl 3 Diagnoses Bipolar 1 disorder F31.9 Time Spent (min) 118
--- NOTE | 2023-01-31 18:20 | Billing Data ---
Date of Service January 31, 2023 Coding Level of Care Code 44939 SUB INP/OBS CARE
[2023-01-31] MEDS: PRAZOSIN HCL 1 MG CAP PO SCH (21:49)
--- NOTE | 2023-02-01 06:21 | Electrocardiogram Report ---
Test Reason : Blood Pressure : / mmHG Vent. Rate : 084 BPM Atrial Rate : 084 BPM P-R Int : 122 ms QRS Dur : 088 ms QT Int : 366 ms P-R-T Axes : 004 070 053 degrees QTc Int : 432 ms Normal sinus rhythm Normal ECG When compared with ECG of 15-JAN-2023 17:19, ST no longer depressed in Inferior leads Vent. rate has decreased by 33 bpm Confirmed by Bret Clements ([id number]) on 02/01/2023 6:20:55 AM Referred By: REFERRED SELF Confirmed By:Bret Clements
--- NOTE | 2023-02-01 07:04 | Electrocardiogram Report ---
Test Reason : Blood Pressure : / mmHG Vent. Rate : 095 BPM Atrial Rate : 095 BPM P-R Int : 122 ms QRS Dur : 090 ms QT Int : 364 ms P-R-T Axes : 032 071 053 degrees QTc Int : 457 ms Normal sinus rhythm Normal ECG When compared with ECG of 30-JAN-2023 14:27, (unconfirmed) No significant change was found Confirmed by Shan Deleon ([id number]) on 02/01/2023 7:03:41 AM Referred By: REFERRED SELF Confirmed By:Fahad Deleon
[2023-02-01] MEDS: PROPRANOLOL HCL 10 MG TAB PO SCH ×2 (09:18→20:30)
[2023-02-01] MEDS: VIBEGRON 75 MG TAB PO SCH (09:19)
[2023-02-01] MEDS: LEVOTHYROXINE SODIUM 50 MCG TABLET PO SCH (09:19)
[2023-02-01 09:39] LABS: Albumin Level 3.8 gm/dl (3.4-5.0); Bilirubin Direct 0.1 mg/dl (0-0.2); Bilirubin,Total 0.4 mg/dl (0.2-1.0); Total Protein 6.7 gm/dl (6.0-8.3)
--- NOTE | 2023-02-01 10:08 | Hospitalist Progress Note ---
Date of Service February 01, 2023 Assessment & Plan (1) Overdose: Plan: Pt is a 58 year-old female with past medical history of bipolar 1 disorder, CKD stage 3, MONICO, restless leg syndrome, hypothyroidism, and macular degeneration. She presented to the ED with her field nurse case manager after consuming a "handful" of her prescription medications. Intentional polysubstance overdose - consumed 35-40 tablets of 0.5mg Klonopin, 10mg Zyprexa, 10mg propranolol, 50mg of Vistaril at around noon 01/30; also consumed 5mg of Klonopin, 50mg Tramadol, 50mg Vistaril, and 10mg propranolol the prior night - tylenol level neg; NAC initiated and completed 01/31 per poison control who has since signed off - elevated liver enzymes presumably d/t OD; downtrending slowly - continue suicide checks, 1:1 - per psych, continue home regimen of olanzapine, prazosin, and propranolol; would avoid antipsychotics for acute, PRN use as she has had multiple tx failures with these medications in the past - continue to hold tramadol 50 mg HS for RLS; will trial calcium and magnesium in addition to calf raises/squats in the evening for possible component of venous stasis causing RLS - continue lorazapem 0.5 mg PO q4hr PRN anxiety, agitation Hypothyroidism - continue home levothyroxine Urinary Incontinence - continue Gemtesa Diet: regular w/ safe tray Code Status: full Dispo: med/surg, pending inpatient psych placement (2) Hypothyroidism: (3) Chronic kidney disease, stage III (moderate): (4) Bipolar 1 disorder: (5) RLS (restless legs syndrome): (6) Transaminitis: Admission and Anticipated Discharge Date Admission Date: January 30, 2023 Supervising Physician Co-Signing Physician Notes I personally examined the patient and verified all bhatt points of history and exam, discussed case, and agree with decision making with Dr Caruso angry at psychiatry for not adjusting meds yet - psych and i d/w pt that today would really be the first day that would even be a viable idea given OD/polysubstance - and then best managed at receiving facility. also upset abo ut restless legs - notes tramadol helps. hasn't done well w requip, mirapex, has ADR from gabapentin. vitals noted, breathing unlabored. angyr and agitated. mild varicosities b/l LE. Skin without rashes pallor or icterus. Polysubstance overdosetransaminitis nonspecific and improving. otherwise OD appears to have resolved. for inpt psych once bed available restless legs - can fall back to tramadol if nothing else helping - but discussed anecdotally i see about 50% success with calf raises/squats before bed and calcium/magnesium HS. she was not at all keen on this idea but didn't d isagree to at least trying for a few nights, although clearly expressed she would much rather have the tramadol - d/w her that we can fall back to this if needed, but since leg exercises/calcium/magnesium would be much frame cleaner and no real interaction with other psych meds - would be much safer. Subjective Pt agitated this morning. Her friend Zenaida at bedside with 1:1 in room. She is upset that she hasn't received any information about inpatient psychiatric placement. She is also upset she didn't get her tramadol last night. She takes this for RLS. Review of Systems Review of Systems: As per HPI Physical Exam Physical Exam: Constitutional: disheveled, laying in bed HEENT: normocephalic, no conjunctival injection CV: clinically well perfused Respiratory: no increased work of breathing MSK: no gross deformities noted Neuro: alert, oriented, no FND noted Results & Data Results & Data Vital Signs (Past 12 Hours) Vital Signs Temp Pulse Resp BP Pulse Ox O2 Del Method 02/01/23 09:15 36.6 C 87 16 121/74 98 Room Air 01/31/23 23:10 Room Air 01/31/23 23:07 36.9 C 100 H 20 120/73 97 Room Air Resident Activity Tracking Resident Involvement: Resident Care Provided Care Provided: Adult Hospital Medicine
--- NOTE | 2023-02-01 11:02 | Psychiatric Progress Note ---
Date of Service February 01, 2023 Impression / Recommendations Impression Impression as per Dr. Amin: 58 y/o F with Bipolar I Disorder and a history of a very large number of medication trials that have typically been ineffective or had intolerable side effects. Recent medication changes appear to have precipitated decompensation. She is now admitted to the medical unit following a medication overingestion of unclear size but has not been evidencing any toxidrome. She seems to recognize the need to resume inpatient treatment but is very ambivalent about that and unable to maintain consistent endorsement of and agreement to such a plan. A recent psychiatric admission here was very problematic because CPAP cannot be accommodated on that unit and pt insisted she could not remain without using it (and, with MONICO, she should not sleep without using it). In my opinion she does require inpatient psychiatric treatment, and that cannot be done here. She has a long list of failed medication trials or intolerable side effects which suggests that the focus of any medication interventions right now should be on acute intervention with immediate problems and not attempting to start any long-term or definitive treatment. 02/01/2023: Now medically stable and voluntary for inpatient psychiatry treatment. Encouragingly she is agreeable to medication use and is taking olanzapine, prazosin and propranolol with ativan prn. Agrees to use her CPAP starting tonight now that a friend has brought this in. If she changed her mind she would meet 302 criteria given suicide attempt and ongoing depression with irritability. (1) Bipolar 1 disorder: Plan -Voluntary for inpatient psychiatric treatment, bed search started -Continue olanzapine 10 mg QHS, prazosin 3 mg QHS, and propranolol 10 mg BID -Ativan 0.5mg q4h prn for panic attacks/anxiety -Medically stable for inpatient psychiatry Risk Factors Assessment Do You Have Access To A Gun?: No Interval History Identifying Information JMI JUAREZ is a 58-year-old F with a history of Bipolar I Disorder, admitted on 01/30/2023 for multi-drug overdose. Consult is by the hospitalist service for suicide attempt. Chief Complaint "Well this isn't helpful". Review of Systems Notes insomnia, eating Subjective Subjective Patient was seen & assessed and interval progress reviewed. She expresses difficulty sleeping last night which she attributes to restless legs. She was able to have a friend bring in her CPAP device which should help with sleep tonight. Denies any current psychiatric medication side effects though notes she had some dizziness with propranolol prior to admission. Reports ongoing improvement in previous muscle symptoms/akathisia. She has restarted olanzapine and is tolerating this though wishes there were other medications that could also help. Discussed that this could be further explored during her inpatient psychiatry admission. Asks about starting Restoril, discussed my preference that given her recent overdose and now that she has CPAP to evaluate sleep quality after use of CPAP. She is voluntary for inpatient psychiatric treatment. Procedures Performed Operation Date: 02/03/23 14:50 <No data on this case meets the specified criteria> Physical Exam Psychiatric Orientation: alert, oriented x 3 and + guarded Apperance: appropriately dressed and + disheveled Eye Contact: + fair eye contact Motor Behavior: no abnormal motor movements Speech: normal rate/rhythm/volume of speech Affect: + constricted affect Mood: + depressed mood and + irritable mood Thought Process: + circumstantial thought process Thought Content: + cognitive distortions and reality based without delusions Suicidal Thoughts: denies suicidal intent; + reports suicidal thoughts and + reports suicidal plan (none for hospital but s/p suicide attempt) Homicidal Thoughts: denies homicidal thoughts Hallucinations: no auditory hallucinations and no visual hallucinations Cognition: recent memory grossly intact, remote memory grossly intact and attention grossly intact Estimated Intelligence: average estimated intelligence Insight: + impaired insight Judgment: + impaired judgement Vital Signs (Past 24 Hours) Last Vital Signs Temp 36.6 C 02/01/23 09:15 Pulse 87 02/01/23 09:15 Resp 16 02/01/23 09:15 BP 121/74 02/01/23 09:15 Pulse Ox 98 02/01/23 09:15 O2 Del Method Room Air 02/01/23 09:15 Results & Data ([facility] [place]) Laboratory Results Laboratory Results - last 24 hr 01/31/23 01/31/23 01/31/23 14:18 14:18 14:18 PT 11.5 INR 1.1 Total Bilirubin 0.3 Direct Bilirubin 0.1 AST 158 H ALT 282 H Alkaline Phosphatase 74 Total Creatine Kinase 40 Total Protein 6.5 Albumin 3.6 02/01/23 09:04 PT INR Total Bilirubin 0.4 Direct Bilirubin 0.1 AST 118 H ALT 253 H Alkaline Phosphatase 75 Total Creatine Kinase Total Protein 6.7 Albumin 3.8 Current Inpatient Medications Current Inpatient Medications: Current Inpatient Medications Calcium Carbonate (Calcium Carbonate 500 Mg Chewable Tab) 500 mg PO CHRISTINE Stop: 03/03/23 20:59 Levothyroxine Sodium (Levothyroxine Sodium 50 Mcg Tablet) 50 mcg PO DAILYBB CHRISTINE Stop: 03/02/23 06:29 Last Admin: 02/01/23 09:19 Dose: 50 mcg Lorazepam (Lorazepam 0.5 Mg Tab) 0.5 mg PO Q4H PRN PRN Reason: Anxiety Stop: 03/02/23 22:52 Magnesium Oxide (Magnesium Oxide 400 Mg Tab) 800 mg PO HS CHRISTINE Stop: 03/03/23 20:59 Olanzapine (Olanzapine 10 Mg Tab) 10 mg PO HS CHRISTINE Stop: 03/01/23 22:09 Last Admin: 01/31/23 21:49 Dose: 10 mg Prazosin HCl (Prazosin Hcl 1 Mg Cap) 3 mg PO CHRISTINE Stop: 03/01/23 22:09 Last Admin: 01/31/23 21:49 Dose: Not Given Propranolol HCl (Propranolol Hcl 10 Mg Tab) 10 mg PO BID CHRISTINE Stop: 03/01/23 22:09 Last Admin: 02/01/23 09:18 Dose: 10 mg Tramadol HCl (Tramadol Hcl 50 Mg Tablet) 50 mg PO CHRISTINE Stop: 03/03/23 20:59 Vibegron (Vibegron 75 Mg Tab) 75 mg PO [facility] CHRISTINE Stop: 03/02/23 08:59 Last Admin: 02/01/23 09:19 Dose: 75 mg
--- NOTE | 2023-02-01 15:45 | Billing Data ---
Date of Service February 01, 2023 Coding Level of Care Code 16972 SUB INP/OBS CARE
[2023-02-01] MEDS: PRAZOSIN HCL 1 MG CAP PO SCH (20:30)
[2023-02-01] MEDS: OLANZapine 10 MG TAB PO SCH (20:30)
[2023-02-01] MEDS: MAGNESIUM OXIDE 400 MG TAB PO SCH (20:34)
[2023-02-01] MEDS: CALCIUM CARBONATE 500 MG CHEWABLE TAB PO SCH (20:34)
[2023-02-01] MEDS: LORazepam 0.5 MG TAB PO PRN (20:35)
[2023-02-01] MEDS ORDERED: traMADol HCL 50 MG TABLET PO SCH (21:00)
[2023-02-02] MEDS: LORazepam 0.5 MG TAB PO PRN ×3 (00:38→22:36)
--- NOTE | 2023-02-02 06:43 | Hospitalist Progress Note ---
Date of Service February 02, 2023 Assessment & Plan (1) Overdose: Plan: Pt is a 58 year-old female with past medical history of bipolar 1 disorder, CKD stage 3, MONICO, restless leg syndrome, hypothyroidism, and macular degeneration. 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 Intentional polysubstance overdose - consumed 35-40 tablets of 0.5mg Klonopin, 10mg Zyprexa, 10mg propranolol, 50mg of Vistaril at around noon 01/30; also consumed 5mg of Klonopin, 50mg Tramadol, 50mg Vistaril, and 10mg propranolol the prior night - tylenol level neg; NAC initiated and completed 01/31 per poison control who has since signed off - elevated liver enzymes presumably d/t OD; continuing to downtrend - continue suicide checks, 1:1 - per psych, continue home regimen of olanzapine, prazosin, and propranolol; would avoid antipsychotics for acute, PRN use as she has had multiple tx failures with these medications in the past - continue lorazapem 0.5 mg PO q4hr PRN anxiety, agitation RLS - will resume tramadol 50 mg HS since she has been on this [employer] for RLS - continue to encourage pt to trial calcium and magnesium in addition to calf raises/squats in the evening for possible component of venous stasis causing RLS Hypothyroidism - continue home levothyroxine Urinary Incontinence - continue Gemtesa Diet: regular w/ safe tray Code Status: full Dispo: med/surg, pending inpatient psych placement- bed search continues (2) Hypothyroidism: (3) Chronic kidney disease, stage III (moderate): (4) Bipolar 1 disorder: (5) RLS (restless legs syndrome): (6) Transaminitis: Admission and Anticipated Discharge Date Admission Date: January 30, 2023 Supervising Physician Co-Signing Physician Notes I personally examined the patient and verified all bhatt points of history and exam, discussed case, and agree with decision making with Dr Caruso angry with me because she only got about 2 hours of sleep, didn't try calcium/magnesium. vitals noted, breathing unlabored. angry and agitated. mild varicosities b/l LE. Skin without rashes pallor or icterus. Polysubstance overdosetransaminitis nonspecific and improving. otherwise OD appears to have resolved. for inpt psych once bed available restless legs - didn't try exercises/calcium/magnesium; since she's not sleeping well and better sleep might help with psych issues, while i would prefer she try calf raises/squats/mag/Ca+2, will Rx tramadol for now and then asked her to consider less problematic Rx later. transaminitis - trending down. follow up LFTs periodically Subjective Pt sitting in bed this AM. No new complaints. Review of Systems Review of Systems: As per HPI Physical Exam Physical Exam: Constitutional: disheveled, no acute distress HEENT: normocephalic, no conjunctival injection CV: clinically well perfused Respiratory: No increased work of breathing MSK: no gross deformities noted Neuro: alert, oriented, no FND noted Psych: Flat affect Results & Data Results & Data Vital Signs (Past 12 Hours) Vital Signs Temp Pulse Resp BP Pulse Ox O2 Del Method 02/01/23 20:26 36.5 C 78 16 109/74 95 Room Air Resident Activity Tracking Resident Involvement: Resident Care Provided Care Provided: Adult Hospital Medicine
[2023-02-02] MEDS: LEVOTHYROXINE SODIUM 50 MCG TABLET PO SCH (07:30)
[2023-02-02 07:51] LABS: Albumin Level 3.8 gm/dl (3.4-5.0); Bilirubin Direct 0.1 mg/dl (0-0.2); Bilirubin,Total 0.3 mg/dl (0.2-1.0); Total Protein 6.7 gm/dl (6.0-8.3)
[2023-02-02] MEDS: VIBEGRON 75 MG TAB PO SCH (08:25)
[2023-02-02] MEDS: PROPRANOLOL HCL 10 MG TAB PO SCH ×2 (08:25→22:36)
--- NOTE | 2023-02-02 10:54 | Psychiatric Progress Note ---
Date of Service February 02, 2023 Impression / Recommendations Impression Impression as per Dr. Amin: 58 y/o F with Bipolar I Disorder and a history of a very large number of medication trials that have typically been ineffective or had intolerable side effects. Recent medication changes appear to have precipitated decompensation. She is now admitted to the medical unit following a medication overingestion of unclear size but has not been evidencing any toxidrome. She seems to recognize the need to resume inpatient treatment but is very ambivalent about that and unable to maintain consistent endorsement of and agreement to such a plan. A recent psychiatric admission here was very problematic because CPAP cannot be accommodated on that unit and pt insisted she could not remain without using it (and, with MONICO, she should not sleep without using it). In my opinion she does require inpatient psychiatric treatment, and that cannot be done here. She has a long list of failed medication trials or intolerable side effects which suggests that the focus of any medication interventions right now should be on acute intervention with immediate problems and not attempting to start any long-term or definitive treatment. 02/02/2023: Ongoing tearfulness and depression with significant help seeking help rejecting behaviors consistent with likely BPD component to presentation as well. She feels her suicide attempt was impulsive and due to frustration about her PCP learning of her recent inpatient psychiatric admission. Unfortunately she remains reluctant to expand bed search so options for placement are limited and are resulting in longer wait for inpatient placement. However, remains voluntary but frustrated with length of process and delay of returning to work. Minimizing severity of attempt and poor insight into reasons for ongoing concern about her psychiatric stability. Remains very resistant to any medical interventions that she is not in control of (i.e. suggestions by hospitalist team for addressing her restless leg syndrome or use of the CPAP). She is tolerating her psychiatric medications. Discussed medication treatment options in detail for bipolar depression. Discussed risks, benefits and alternatives. Patient would like to start and consented to Wellbutrin for bipolar depression. Reviewed side effects including but not limited to: elevated HR, elevated BP, insomnia, decreased appetite, potential for shift into nilson. (1) Bipolar 1 disorder: Plan -Voluntary for inpatient psychiatric treatment, bed search ongoing -Continue olanzapine 10 mg QHS, prazosin 3 mg QHS, and propranolol 10 mg BID -Start Wellbutrin 75mg qd (she prefers IR formulation once daily as this has worked well for her in the past) -Ativan 0.5mg q4h prn for panic attacks/anxiety -Medically stable for inpatient psychiatry -Discussed with Dr. Ruiz Risk Factors Assessment Do You Have Access To A Gun?: No Interval History Identifying Information JIM JUAREZ is a 58-year-old F with a history of Bipolar I Disorder, admitted on 01/30/2023 for multi-drug overdose. Consult is by the hospitalist service for suicide attempt. Chief Complaint "I'm not having a good day, I didn't sleep well". Review of Systems Notes poor sleep, eating Subjective Subjective Patient was seen & assessed and interval progress reviewed. Refused treatments offered by hospitalist team to try to help her restless leg symptoms last night and refused to use her CPAP. Tells me she didn't use her CPAP because it's "a pain to put together and take apart". Discussed that if she asks respiratory therapy could likely help with this while she is in the hospital. Frustrated she can't have tramadol for her restless legs. Tearful about needing to wait for inpatient psychiatric placement, discussed option to expand the bed search to facilitate faster placement but she isn't interested or willing for this. We reviewed medication options as she feels something needs to be added to help with her depression and she requested restarting Wellbutrin 75mg which has been very helpful over the years for depression. Showered this morning. Procedures Performed Operation Date: 02/03/23 14:50 <No data on this case meets the specified criteria> Physical Exam Psychiatric Orientation: alert and oriented x 3 Apperance: appropriately dressed and appropriately groomed Eye Contact: + fair eye contact Motor Behavior: no abnormal motor movements Speech: normal rate/rhythm/volume of speech Affect: + tearful affect Mood: + depressed mood and + irritable mood Thought Process: + circumstantial thought process Thought Content: + cognitive distortions and reality based without delusions Suicidal Thoughts: denies suicidal plan (none for hospital but s/p suicide attempt) and denies suicidal intent; + reports suicidal thoughts (intermittent but also regretful of attempt) Homicidal Thoughts: denies homicidal thoughts Hallucinations: no auditory hallucinations and no visual hallucinations Cognition: recent memory grossly intact, remote memory grossly intact and attention grossly intact Estimated Intelligence: average estimated intelligence Insight: + limited insight Judgment: + limited judgement Vital Signs (Past 24 Hours) Last Vital Signs Temp 36.6 C 02/02/23 07:00 Pulse 100 H 02/02/23 07:00 Resp 18 02/02/23 07:00 BP 132/82 02/02/23 07:00 Pulse Ox 97 02/02/23 07:00 O2 Del Method Room Air 02/02/23 07:00 Results & Data ([facility]) Laboratory Results Laboratory Results - last 24 hr 02/02/23 07:17 Total Bilirubin 0.3 Direct Bilirubin 0.1 AST 86 H ALT 213 H Alkaline Phosphatase 78 Total Protein 6.7 Albumin 3.8 Current Inpatient Medications Current Inpatient Medications: Current Inpatient Medications Calcium Carbonate (Calcium Carbonate 500 Mg Chewable Tab) 500 mg PO HS CHRISTINE Stop: 03/03/23 20:59 Last Admin: 02/01/23 20:34 Dose: Not Given Levothyroxine Sodium (Levothyroxine Sodium 50 Mcg Tablet) 50 mcg PO DAILYBB CHRISTINE Stop: 03/02/23 06:29 Last Admin: 02/02/23 07:30 Dose: 50 mcg Lorazepam (Lorazepam 0.5 Mg Tab) 0.5 mg PO Q4H PRN PRN Reason: Anxiety Stop: 03/02/23 22:52 Last Admin: 02/02/23 00:38 Dose: 0.5 mg Magnesium Oxide (Magnesium Oxide 400 Mg Tab) 800 mg PO HS CHRISTINE Stop: 03/03/23 20:59 Last Admin: 02/01/23 20:34 Dose: Not Given Olanzapine (Olanzapine 10 Mg Tab) 10 mg PO HS CHRISTINE Stop: 03/01/23 22:09 Last Admin: 02/01/23 20:30 Dose: 10 mg Prazosin HCl (Prazosin Hcl 1 Mg Cap) 3 mg PO HS CHRISTINE Stop: 03/01/23 22:09 Last Admin: 02/01/23 20:30 Dose: 3 mg Propranolol HCl (Propranolol Hcl 10 Mg Tab) 10 mg PO BID CHRISTINE Stop: 03/01/23 22:09 Last Admin: 02/02/23 08:25 Dose: 10 mg Vibegron (Vibegron 75 Mg Tab) 75 mg PO QAM CHRISTINE Stop: 03/02/23 08:59 Last Admin: 02/02/23 08:25 Dose: 75 mg
[2023-02-02] MEDS: buPROPion HCl 75 MG TABLET PO SCH (13:21)
--- NOTE | 2023-02-02 16:53 | Billing Data ---
Date of Service February 02, 2023 Coding Level of Care Code 16023 SUB INP/OBS CARE
[2023-02-02] MEDS ORDERED: traMADol HCL 50 MG TABLET PO SCH (21:00)
[2023-02-02] MEDS: MAGNESIUM OXIDE 400 MG TAB PO SCH (22:00)
[2023-02-02] MEDS: CALCIUM CARBONATE 500 MG CHEWABLE TAB PO SCH (22:00)
[2023-02-02] MEDS: PRAZOSIN HCL 1 MG CAP PO SCH (22:36)
[2023-02-02] MEDS: OLANZapine 10 MG TAB PO SCH (22:37)
[2023-02-03] MEDS: LEVOTHYROXINE SODIUM 50 MCG TABLET PO SCH (06:27)
[2023-02-03] MEDS: PROPRANOLOL HCL 10 MG TAB PO SCH ×2 (07:59→22:49)
[2023-02-03] MEDS: VIBEGRON 75 MG TAB PO SCH (08:00)
[2023-02-03] MEDS: buPROPion HCl 75 MG TABLET PO SCH (08:00)
[2023-02-03] MEDS ORDERED: IBUPROFEN 600 MG TAB PO ONE (09:43)
--- NOTE | 2023-02-03 11:53 | Psychiatric Progress Note ---
Date of Service February 03, 2023 Impression / Recommendations Impression Impression as per Dr. Amin: 58 y/o F with Bipolar I Disorder and a history of a very large number of medication trials that have typically been ineffective or had intolerable side effects. Recent medication changes appear to have precipitated decompensation. She is now admitted to the medical unit following a medication overingestion of unclear size but has not been evidencing any toxidrome. She seems to recognize the need to resume inpatient treatment but is very ambivalent about that and unable to maintain consistent endorsement of and agreement to such a plan. A recent psychiatric admission here was very problematic because CPAP cannot be accommodated on that unit and pt insisted she could not remain without using it (and, with MONICO, she should not sleep without using it). In my opinion she does require inpatient psychiatric treatment, and that cannot be done here. She has a long list of failed medication trials or intolerable side effects which suggests that the focus of any medication interventions right now should be on acute intervention with immediate problems and not attempting to start any long-term or definitive treatment. 02/03/2023: Slept much better after using her CPAP last night with less irritability today. Still presents as very depressed. Tolerating her medications without side effects. Bed search ongoing, she agrees to expand bed search. (1) Bipolar 1 disorder: Plan -Voluntary for inpatient psychiatric treatment, bed search ongoing -Continue olanzapine 10 mg QHS, prazosin 3 mg QHS, and propranolol 10 mg BID -Continue Wellbutrin 75mg qd (she prefers IR formulation once daily as this has worked well for her in the past) -Ativan 0.5mg q4h prn for panic attacks/anxiety -Medically stable for inpatient psychiatry Risk Factors Assessment Do You Have Access To A Gun?: No Interval History Identifying Information JIM JUAREZ is a 58-year-old F with a history of Bipolar I Disorder, admitted on 01/30/2023 for multi-drug overdose. Consult is by the hospitalist service for suicide attempt. Chief Complaint "Not great". Subjective Subjective Patient was seen & assessed and interval progress reviewed. Reports improved sleep of about 7 hours last night with use of her CPAP. Mood remains depressed and frustrated with having to be in the hospital but remains voluntary for inpatient placement. Agreed to expanded bed search. Hasn't noticed any benefits from initial two doses of Wellbutrin but also no side effects. She prefers to ke ep her medications as they are which is reasonable. Procedures Performed Operation Date: 02/03/23 14:50 <No data on this case meets the specified criteria> Physical Exam Psychiatric Orientation: alert and oriented x 3 Apperance: appropriately dressed and appropriately groomed Eye Contact: + fair eye contact Motor Behavior: no abnormal motor movements Speech: normal rate/rhythm/volume of speech Affect: + depressed affect Mood: + depressed mood Thought Process: goal directed thought process Thought Content: + cognitive distortions and reality based without delusions Suicidal Thoughts: denies suicidal plan (none for hospital but s/p suicide attempt) and denies suicidal intent; + reports suicidal thoughts (intermittent but also regretful of attempt) Homicidal Thoughts: denies homicidal thoughts Hallucinations: no auditory hallucinations and no visual hallucinations Cognition: recent memory grossly intact, remote memory grossly intact and attention grossly intact Estimated Intelligence: average estimated intelligence Insight: + limited insight Judgment: + limited judgement Vital Signs (Past 24 Hours) Last Vital Signs Temp 36.4 C L 02/03/23 07:56 Pulse 90 02/03/23 07:56 Resp 18 02/03/23 07:56 BP 97/66 L 02/03/23 10:01 Pulse Ox 98 02/03/23 08:04 O2 Del Method Room Air 02/03/23 08:04 Results & Data ([facility]) Current Inpatient Medications Current Inpatient Medications: Current Inpatient Medications Bupropion HCl (Bupropion Hcl 75 Mg Tablet) 75 mg PO QAM CHRISTINE Stop: 03/04/23 10:59 Last Admin: 02/03/23 08:00 Dose: 75 mg Calcium Carbonate (Calcium Carbonate 500 Mg Chewable Tab) 500 mg PO CHRISTINE Stop: 03/03/23 20:59 Last Admin: 02/02/23 22:00 Dose: Not Given Levothyroxine Sodium (Levothyroxine Sodium 50 Mcg Tablet) 50 mcg PO DAILYBB CHRISTINE Stop: 03/02/23 06:29 Last Admin: 02/03/23 06:27 Dose: 50 mcg Lorazepam (Lorazepam 0.5 Mg Tab) 0.5 mg PO Q4H PRN PRN Reason: Anxiety Stop: 03/02/23 22:52 Last Admin: 02/02/23 22:36 Dose: 0.5 mg Magnesium Oxide (Magnesium Oxide 400 Mg Tab) 800 mg PO CHRISTINE Stop: 03/03/23 20:59 Last Admin: 02/02/23 22:00 Dose: Not Given Olanzapine (Olanzapine 10 Mg Tab) 10 mg PO HS CHRISTINE Stop: 03/01/23 22:09 Last Admin: 02/02/23 22:37 Dose: 10 mg Prazosin HCl (Prazosin Hcl 1 Mg Cap) 3 mg PO HS CHRISTINE Stop: 03/01/23 22:09 Last Admin: 02/02/23 22:36 Dose: 3 mg Propranolol HCl (Propranolol Hcl 10 Mg Tab) 10 mg PO BID CHRISTINE Stop: 03/01/23 22:09 Last Admin: 02/03/23 07:59 Dose: Not Given Tramadol HCl (Tramadol Hcl 50 Mg Tablet) 50 mg PO HS CHRISTINE Stop: 03/04/23 20:59 Last Admin: 02/02/23 22:35 Dose: 50 mg Vibegron (Vibegron 75 Mg Tab) 75 mg PO QA CHRISTINE Stop: 03/02/23 08:59 Last Admin: 02/03/23 08:00 Dose: 75 mg
--- NOTE | 2023-02-03 12:45 | Hospitalist Progress Note ---
Date of Service February 03, 2023 Assessment & Plan (1) Overdose: Plan: Pt is a 58 year-old female with past medical history of bipolar 1 disorder, CKD stage 3, MONICO, restless leg syndrome, hypothyroidism, and macular degeneration. She presented to the ED with her case work aide after consuming a "handful" of her prescription medications. Intentional polysubstance overdose - consumed 35-40 tablets of 0.5mg Klonopin, 10mg Zyprexa, 10mg propranolol, 50mg of Vistaril at around noon 01/30; also consumed 5mg of Klonopin, 50mg Tramadol, 50mg Vistaril, and 10mg propranolol the prior night - tylenol level neg; NAC initiated and completed 01/31 per poison control who has since signed off - elevated liver enzymes presumably d/t OD; continuing to downtrend - continue suicide checks, 1:1 - per psych, continue home regimen of olanzapine, prazosin, and propranolol; would avoid antipsychotics for acute, PRN use as she has had multiple tx failures with these medications in the past - continue lorazapem 0.5 mg PO q4hr PRN anxiety, agitation RLS - tramadol 50 mg HS 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 - continue to encourage pt to trial calcium and magnesium in addition to calf raises/squats in the evening for possible component of venous stasis causing RLS - pt asking for tylenol d/t leg pain; opting to avoid tylenol at this point given recent transaminitis and pt given a dose of ibuprofen (pt does have a hx of CKD, most recent Cr WNL) Hypothyroidism - continue home levothyroxine Urinary Incontinence - continue Gemtesa Diet: regular w/ safe tray Code Status: full Dispo: med/surg, pending inpatient psych placement- continue bed search (2) Hypothyroidism: (3) Chronic kidney disease, stage III (moderate): (4) Bipolar 1 disorder: (5) RLS (restless legs syndrome): (6) Transaminitis: Admission and Anticipated Discharge Date Admission Date: January 30, 2023 Supervising Physician Co-Signing Physician Notes ATTESTATION I also saw the patient and confirmed bhatt portions of the history and exam. I agree with the impression and plan in the resident documentation, and as summarized below. Reports sleeping better last night with tramadol in the evening. No new complaints today. Still awaiting placement EXAM Vital signs stable as noted Heart regular Respirations nonlabored IMPRESSION & PLAN Polysubstance overdose Psychiatric consultation appreciated Awaiting availability of inpatient psychiatric bed Transaminitis Improving Additional per resident documentation Subjective Pt states she slept well last night. She believes the tramadol helped her RLS. No new symptoms. Review of Systems Review of Systems: As per HPI Physical Exam Physical Exam: Constitutional: well appearing, no acute distress HEENT: normocephalic, no conjunctival injection CV: RRR, no murmur, no LE edema Respiratory: CTA bilaterally. No rhonchi, wheezes, or crackles. No increased work of breathing MSK: no gross deformities noted Skin: warm, dry, no rashes Neuro: alert, oriented, no FND noted Psych: flat affect Results & Data Results & Data Vital Signs (Past 12 Hours) Vital Signs Temp Pulse Resp BP BP Pulse Ox Pulse Ox 02/03/23 10:01 97/66 L 02/03/23 08:04 98 02/03/23 07:56 36.4 C L 90 18 90/60 L 92/61 L 98 O2 Del Method O2 Del Method 02/03/23 10:01 02/03/23 08:04 Room Air 02/03/23 07:56 Room Air Resident Activity Tracking Resident Involvement: Resident Care Provided Care Provided: Adult Hospital Medicine
[2023-02-03] MEDS: LORazepam 0.5 MG TAB PO PRN ×2 (18:13→22:48)
[2023-02-03] MEDS: CALCIUM CARBONATE 500 MG CHEWABLE TAB PO SCH (22:46)
[2023-02-03] MEDS: MAGNESIUM OXIDE 400 MG TAB PO SCH (22:46)
[2023-02-03] MEDS: traMADol HCL 50 MG TABLET PO SCH (22:49)
[2023-02-03] MEDS: PRAZOSIN HCL 1 MG CAP PO SCH (22:49)
[2023-02-03] MEDS: OLANZapine 10 MG TAB PO SCH (22:50)
[2023-02-04] MEDS: LORazepam 0.5 MG TAB PO PRN (03:28)
[2023-02-04] MEDS: LEVOTHYROXINE SODIUM 50 MCG TABLET PO SCH (06:00)
--- NOTE | 2023-02-04 06:50 | Hospitalist Progress Note ---
Date of Service February 04, 2023 Assessment & Plan (1) Overdose: Plan: Pt is a 58 year-old female with past medical history of bipolar 1 disorder, CKD stage 3, MONICO, restless leg syndrome, hypothyroidism, and macular degeneration. She presented to the ED with her special education case manager after consuming a "handful" of her prescription medications. Intentional polysubstance overdose - consumed 35-40 tablets of 0.5mg Klonopin, 10mg Zyprexa, 10mg propranolol, 50mg of Vistaril at around noon 01/30; also consumed 5mg of Klonopin, 50mg Tramadol, 50mg Vistaril, and 10mg propranolol the prior night - tylenol level neg; NAC initiated and completed 01/31 per poison control who has since signed off - elevated liver enzymes presumably d/t OD; continuing to downtrend - continue suicide checks, 1:1 - per psych, continue home regimen of olanzapine, prazosin, and propranolol; would avoid antipsychotics for acute, PRN use as she has had multiple tx failures with these medications in the past - continue lorazapem 0.5 mg PO q4hr PRN anxiety, agitation RLS - 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 - continue to encourage pt to trial calcium and magnesium in addition to calf raises/squats in the evening for possible component of venous stasis causing RLS - addition of hydroxyzine 25 mg HS PRN for insomnia (pt does take this at home for anxiety and it tends to make her sleepy) Hypothyroidism - continue home levothyroxine Urinary Incontinence - continue gemtesa Diet: regular w/ safe tray Code Status: full Dispo: med/surg, pending inpatient psych placement- referral placed to [facility] (2) Hypothyroidism: (3) Chronic kidney disease, stage III (moderate): (4) Bipolar 1 disorder: (5) RLS (restless legs syndrome): (6) Transaminitis: Admission and Anticipated Discharge Date Admission Date: January 30, 2023 Supervising Physician Co-Signing Physician Notes ATTESTATION I also saw the patient and confirmed bhatt portions of the history and exam. I agree with the impression and plan in the resident documentation, and as summarized below. Did not sleep as well last night. She requested and was able to shower today. No new complaints today. Still awaiting placement EXAM 116/69, 81, 16, 36.8, 97% on room air Heart regular Respirations nonlabored IMPRESSION & PLAN Polysubstance overdose Psychiatric consultation appreciated Awaiting availability of inpatient psychiatric bed Additional per resident documentation Subjective Pt states she didn't sleep well last night. Only about 2-3 hours last night. Otherwise she feels ok. Review of Systems Review of Systems: As per HPI Physical Exam Physical Exam: Constitutional: well appearing, no acute distress HEENT: normocephalic, no conjunctival injection CV: Clinically well perfused Respiratory: No increased work of breathing MSK: no gross deformities noted Skin: warm, dry, no rashes Neuro: alert, oriented, no FND noted Psych: flat affect but more conversational than previous days Results & Data Results & Data Vital Signs (Past 12 Hours) Vital Signs Temp Pulse Resp BP Pulse Ox O2 Del Method 02/03/23 22:46 84 114/77 02/03/23 22:06 36.7 C 90 16 113/73 98 Room Air Resident Activity Tracking Resident Involvement: Resident Care Provided Care Provided: Adult Hospital Medicine
[2023-02-04] MEDS: PROPRANOLOL HCL 10 MG TAB PO SCH ×2 (08:19→22:32)
[2023-02-04] MEDS: VIBEGRON 75 MG TAB PO SCH (08:20)
[2023-02-04] MEDS: buPROPion HCl 75 MG TABLET PO SCH (08:20)
[2023-02-04] MEDS ORDERED: hydrOXYzine HCl 25 MG TAB PO PRN (09:21)
[2023-02-04 10:53] LABS: HBSAG NON-REACTIVE (NON-REACTIVE); Hepatitis A Antibody IgM NON-REACTIVE (NON-REACTIVE); Hepatitis B Core Antibody IgM NON-REACTIVE (NON-REACTIVE)
[2023-02-04] MEDS: MAGNESIUM OXIDE 400 MG TAB PO SCH (22:21)
[2023-02-04] MEDS: CALCIUM CARBONATE 500 MG CHEWABLE TAB PO SCH (22:23)
[2023-02-04] MEDS: PRAZOSIN HCL 1 MG CAP PO SCH (22:31)
[2023-02-04] MEDS: OLANZapine 10 MG TAB PO SCH (22:32)
[2023-02-04] MEDS: traMADol HCL 50 MG TABLET PO SCH (22:35)
[2023-02-05] MEDS: LORazepam 0.5 MG TAB PO PRN (00:48)
[2023-02-05] MEDS: LEVOTHYROXINE SODIUM 50 MCG TABLET PO SCH (06:17)
[2023-02-05] MEDS: PROPRANOLOL HCL 10 MG TAB PO SCH ×2 (08:56→22:33)
[2023-02-05] MEDS: buPROPion HCl 75 MG TABLET PO SCH (08:56)
[2023-02-05] MEDS: VIBEGRON 75 MG TAB PO SCH (08:57)
--- NOTE | 2023-02-05 09:25 | Hospitalist Progress Note ---
Date of Service February 05, 2023 Assessment & Plan (1) Overdose: Plan: Pt is a 58 year-old female with past medical history of bipolar 1 disorder, CKD stage 3, MONICO, restless leg syndrome, hypothyroidism, and macular degeneration. She presented to the ED with her case monitor after consuming a "handful" of her prescription medications. Intentional polysubstance overdose - consumed 35-40 tablets of 0.5mg Klonopin, 10mg Zyprexa, 10mg propranolol, 50mg of Vistaril at around noon 01/30; also consumed 5mg of Klonopin, 50mg Tramadol, 50mg Vistaril, and 10mg propranolol the prior night - tylenol level neg; NAC initiated and completed 01/31 per poison control who has since signed off - elevated liver enzymes presumably d/t OD; downtrending at last check- no need to recheck this admission; would recommend recheck outpatient to ensure they h ave downtrended/normalized - continue suicide checks, 1:1 - per psych, continue home regimen of olanzapine, prazosin, and propranolol; would avoid antipsychotics for acute, PRN use as she has had multiple tx failures with these medications in the past - psych also added wellbutrin to her daily regimen - continue lorazapem 0.5 mg PO q4hr PRN anxiety, agitation RLS - continue tramadol 50 mg HS 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 - encouraged pt to trial calcium and magnesium in addition to calf raises/squats in the evening for possible component of venous stasis causing RLS - per psych; increase hydroxyzine to 50 mg HS PRN for insomnia/anxiety Hypothyroidism - continue home levothyroxine Urinary Incontinence - continue gemtesa Diet: regular w/ safe tray Code Status: full Dispo: med/surg, pending inpatient psych placement (recently expanded search) (2) Hypothyroidism: (3) Chronic kidney disease, stage III (moderate): (4) Bipolar 1 disorder: (5) RLS (restless legs syndrome): (6) Transaminitis: Admission and Anticipated Discharge Date Admission Date: January 30, 2023 Supervising Physician Co-Signing Physician Notes ATTESTATION I also saw the patient and confirmed bhatt portions of the history and exam. I agree with the impression and plan in the resident documentation, and as summarized below. Still awaiting placement. Affect little bit more reactive today compared to previous. She is little bit more conversational as well. EXAM 105/71, 76, 14, 36.8, 97% room air Heart regular Respirations nonlabored IMPRESSION & PLAN Polysubstance overdose Psychiatric consultation appreciated Medication changes as noted Awaiting availability of inpatient psychiatric bed Additional per resident documentation Subjective Pt did not sleep well last night. She did use hydroxyzine but was awakened to speak with the psych liaison. Otherwise, she is frustrated that a bed has not been found yet. No new symptoms. Review of Systems Review of Systems: As per HPI Physical Exam Physical Exam: Constitutional: well appearing, no acute distress HEENT: normocephalic, no conjunctival injection CV: clinically well perfused Respiratory: No increased work of breathing MSK: no gross deformities noted Neuro: alert, oriented, no FND noted Psych: flat affect Results & Data Results & Data Vital Signs (Past 12 Hours) Vital Signs Temp Pulse Resp BP BP Pulse Ox O2 Del Method 02/05/23 07:48 36.8 C 76 14 105/71 97 Room Air 02/04/23 22:23 36.8 C 91 H 17 116/80 97 Room Air Resident Activity Tracking Resident Involvement: Resident Care Provided Care Provided: Adult Hospital Medicine
--- NOTE | 2023-02-05 11:58 | Psychiatric Progress Note ---
Date of Service February 05, 2023 Impression / Recommendations Impression Impression as per Dr. Amin: 58 y/o F with Bipolar I Disorder and a history of a very large number of medication trials that have typically been ineffective or had intolerable side effects. Recent medication changes appear to have precipitated decompensation. She is now admitted to the medical unit following a medication overingestion of unclear size but has not been evidencing any toxidrome. She seems to recognize the need to resume inpatient treatment but is very ambivalent about that and unable to maintain consistent endorsement of and agreement to such a plan. A recent psychiatric admission here was very problematic because CPAP cannot be accommodated on that unit and pt insisted she could not remain without using it (and, with MONICO, she should not sleep without using it). In my opinion she does require inpatient psychiatric treatment, and that cannot be done here. She has a long list of failed medication trials or intolerable side effects which suggests that the focus of any medication interventions right now should be on acute intervention with immediate problems and not attempting to start any long-term or definitive treatment. 02/04/2023: Ongoing depression, tolerating Wellbutrin, she consents to increasing the dose further. Discussed with her outpatient psychiatrist. Bed search ongoing. (1) Bipolar 1 disorder: Plan -Voluntary for inpatient psychiatric treatment, bed search ongoing -Continue olanzapine 10 mg QHS, prazosin 3 mg QHS, and propranolol 10 mg BID -Increase Wellbutrin to 150mg qd (she prefers IR formulation once daily as this has worked well for her in the past) -Taper Ativan 0.5mg to daily prn for panic attacks/anxiety -Vistaril 50mg hs prn for insomnia/anxiety -Remains medically stable for inpatient psychiatry, >6 days out from overdose attempt Risk Factors Assessment Do You Have Access To A Gun?: No Interval History Identifying Information JIM JUAREZ is a 58-year-old F with a history of Bipolar I Disorder, admitted on 01/30/2023 for multi-drug overdose. Consult is by the hospitalist service for suicide attempt. Chief Complaint "I didn't get as good sleep last night". Subjective Subjective Patient was seen & assessed and interval progress reviewed. Bed search ongoing. She didn't sleep as well last night. Understandably frustrated with prolonged bed search but discussed concerns regarding her safety to go home. She has not noticed any side effects to the Wellbutrin, would like to increase this to 150mg as this has worked in the past. Denies any side effects from the olanzapine. Discussed option for use of metformin or topiramate to help potentially off-set weight gain effects but she does not view this as a current concern. She asks about Restoril in the short term for sleep, discussed my concern about using this in setting of other medications and preference that she utilize Vistaril at a higher dose which she is in agreement with trying. Procedures Performed Operation Date: 02/03/23 14:50 <No data on this case meets the specified criteria> Physical Exam Psychiatric Orientation: alert and oriented x 3 Apperance: appropriately dressed and appropriately groomed Eye Contact: + fair eye contact Motor Behavior: no abnormal motor movements Speech: normal rate/rhythm/volume of speech Affect: + depressed affect Mood: + depressed mood Thought Process: goal directed thought process Thought Content: + cognitive distortions and reality based without delusions Suicidal Thoughts: denies suicidal plan (none for hospital but s/p suicide attempt) and denies suicidal intent; + reports suicidal thoughts (intermittent but also regretful of attempt) Homicidal Thoughts: denies homicidal thoughts Hallucinations: no auditory hallucinations and no visual hallucinations Cognition: recent memory grossly intact, remote memory grossly intact and attention grossly intact Estimated Intelligence: average estimated intelligence Insight: + limited insight Judgment: + limited judgement Vital Signs (Past 24 Hours) Last Vital Signs Temp 36.8 C 02/05/23 07:48 Pulse 76 02/05/23 07:48 Resp 14 02/05/23 07:48 BP 105/71 02/05/23 07:48 Pulse Ox 97 02/05/23 07:48 O2 Del Method Room Air 02/05/23 07:48 Results & Data ([facility]) Current Inpatient Medications Current Inpatient Medications: Current Inpatient Medications Bupropion HCl (Bupropion Hcl 75 Mg Tablet) 75 mg PO QAM CHRISTINE Stop: 03/04/23 10:59 Last Admin: 02/05/23 08:56 Dose: 75 mg Calcium Carbonate (Calcium Carbonate 500 Mg Chewable Tab) 500 mg PO HS CHRISTINE Stop: 03/03/23 20:59 Last Admin: 02/04/23 22:23 Dose: Not Given Hydroxyzine HCl (Hydroxyzine Hcl 25 Mg Tab) 25 mg PO HS PRN PRN Reason: insomnia Stop: 03/06/23 09:20 Last Admin: 02/04/23 22:31 Dose: 25 mg Levothyroxine Sodium (Levothyroxine Sodium 50 Mcg Tablet) 50 mcg PO DAILYBB CHRISTINE Stop: 03/02/23 06:29 Last Admin: 02/05/23 06:17 Dose: 50 mcg Lorazepam (Lorazepam 0.5 Mg Tab) 0.5 mg PO Q4H PRN PRN Reason: Anxiety Stop: 03/02/23 22:52 Last Admin: 02/05/23 00:48 Dose: 0.5 mg Magnesium Oxide (Magnesium Oxide 400 Mg Tab) 800 mg PO HS CHRISTINE Stop: 03/03/23 20:59 Last Admin: 02/04/23 22:21 Dose: Not Given Olanzapine (Olanzapine 10 Mg Tab) 10 mg PO HS CHRISTINE Stop: 03/01/23 22:09 Last Admin: 02/04/23 22:32 Dose: 10 mg Prazosin HCl (Prazosin Hcl 1 Mg Cap) 3 mg PO HS CHRISTINE Stop: 03/01/23 22:09 Last Admin: 02/04/23 22:31 Dose: 3 mg Propranolol HCl (Propranolol Hcl 10 Mg Tab) 10 mg PO BID CHRISTINE Stop: 03/01/23 22:09 Last Admin: 02/05/23 08:56 Dose: 10 mg Tramadol HCl (Tramadol Hcl 50 Mg Tablet) 50 mg PO Q24H CHRISTINE Stop: 03/05/23 22:29 Last Admin: 02/04/23 22:35 Dose: 50 mg Vibegron (Vibegron 75 Mg Tab) 75 mg PO QAM CHRISTINE Stop: 03/02/23 08:59 Last Admin: 02/05/23 08:57 Dose: 75 mg
[2023-02-05] MEDS ORDERED: hydrOXYzine HCl 25 MG TAB PO PRN (12:56)
[2023-02-05] MEDS ORDERED: LORazepam 0.5 MG TAB PO PRN (20:00)
[2023-02-05] MEDS: traMADol HCL 50 MG TABLET PO SCH (21:56)
[2023-02-05] MEDS: PRAZOSIN HCL 1 MG CAP PO SCH (22:30)
[2023-02-05] MEDS: OLANZapine 10 MG TAB PO SCH (22:30)
[2023-02-05] MEDS: CALCIUM CARBONATE 500 MG CHEWABLE TAB PO SCH (22:33)
[2023-02-05] MEDS: MAGNESIUM OXIDE 400 MG TAB PO SCH (22:33)
[2023-02-06] MEDS ORDERED: MECLIZINE HCL 25 MG TAB PO PRN (03:11)
[2023-02-06] MEDS: LEVOTHYROXINE SODIUM 50 MCG TABLET PO SCH (06:25)
--- NOTE | 2023-02-06 06:35 | Discharge Summary ---
Date of Service February 06, 2023 Admission HPI Per Admitting Provider Nuvia is a 58 year-old female with past medical history of bipolar 1 disorder, CKD stage 3, MONICO, restless leg syndrome, hypothyroidism, and macular degeneration. She states she took 35-40 Klonopin (all of the remaining 0.5mg tablets she had) at around noon today. She also states that she took 5mg of the Klonopin last night because she felt an "overwhelming feeling of suicidal thoughts" and felt that this would calm her down. States she did not intend to , if she was trying to she "would've taken the Tramadol" instead. She denies any alcohol use, marijuana or recreational drug use. Denies taking any aspirin, Tylenol, Benadryl, or over the counter meds at the same time. She endorses current suicidal ideation but denies homicidal ideation. Denies visual or auditory hallucinations. She denies any history of prior seizures. She states that life had been better around October/November as she weaned her self off of her Invega, as she states god told her to stop her meds- until she started to have anger issues and has become manic. She was recently admitted to inpatient psychiatry from 01/17-01/20/23.She states that he medications make her feel "dumb" and unable to do her job, she currently works at the [employer]. She follows with her psychiatrist, Dr. Fraser. Admission Exam Per Admitting Provider Constitutional: + disheveled and + in distress Eyes: PERRL, conjunctivae normal, anicteric sclerae ENMT: External ears and nose normal. Moist mucous membranes. Respiratory: normal respiratory effort, lungs clear to auscultation Cardiovascular: RRR, no murmur, no edema Gastrointestinal (Abdomen): Abdomen soft, nontender. No masses palpated. Skin: no rashes, warm and dry Neurologic: no focal motor deficits Psychiatric: Apperance: + disheveled Affect: + depressed affect and + anxious affect Mood: + depressed mood and + anxious mood Suicidal Thoughts: + reports suicidal thoughts Homicidal Thoughts: denies homicidal thoughts Principal Diagnosis intentional overdose Discharge Exam Per yesterday's exam: Constitutional: well appearing, no acute distress HEENT: normocephalic, no conjunctival injection CV: clinically well perfused Respiratory: No increased work of breathing MSK: no gross deformities noted Neuro: alert, oriented, no FND noted Psych: flat affect Discharge Data Allergies Allergy/AdvReac Type Severity Reaction Status Date / Time gabapentin Allergy Mild makes her Verified 01/30/23 19:43 manic lurasidone [From Latuda] Allergy Mild Hallucinati Verified 01/30/23 19:43 ng quetiapine [From Seroquel] Allergy Unknown Unknown Verified 01/30/23 19:43 Consultations 01/30/23 18:05 ED Decision to Admit Stat 01/30/23 20:25 Consult Behavioral Health Liaison Routine 01/30/23 22:10 Consult Psychiatry Routine 01/30/23 22:32 Consult Behavioral Health Liaison Routine Procedures Performed Operation Date: 02/03/23 14:50 <No data on this case meets the specified criteria> Ordered Studies 01/30/23 20:17 US liver Urgent IMPRESSION: 0.5 cm echogenic foci consistent with a nonobstructing mid right renal calculus. Echogenic parenchyma of the right kidney consistent with medical renal disease. Hospital Course (1) Overdose: Pt is a 58 year-old female with past medical history of bipolar 1 disorder, CKD stage 3, MONICO, restless leg syndrome, hypothyroidism, and macular degeneration. She presented to the ED with her case briefer after consuming a "handful" of her prescription medications. Pt was not examined on the day of discharge due to leaving early in the AM. She was discharged by the night team. Intentional polysubstance overdose - consumed 35-40 tablets of 0.5mg Klonopin, 10mg Zyprexa, 10mg propranolol, 50mg of Vistaril at around noon 01/30; also consumed 5mg of Klonopin, 50mg Tramadol, 50mg Vistaril, and 10mg propranolol the prior night - tylenol level neg; NAC initiated and completed 01/31 per poison control who has since signed off - elevated liver enzymes presumably d/t OD; downtrending at last check- no need to recheck this admission; would recommend recheck outpatient to ensure they have downtrended/normalized - per psych, continue home regimen of olanzapine, prazosin, lorazepam, and prop ranolol; would avoid antipsychotics for acute, PRN use as she has had multiple tx failures with these medications in the past - psych also added wellbutrin 150 mg qAM to her daily regimen RLS - continue tramadol 50 mg HS since she has been on this STITCHDOWN TOE FORMER for RLS - encouraged pt to trial calcium and magnesium in addition to calf raises/squats in the evening for possible component of venous stasis causing RLS- would recommend further counseling abou this as an outpatient - per psych; increase hydroxyzine to 50 mg HS PRN for insomnia/anxiety Hypothyroidism - continue home levothyroxine Urinary incontinence - continue gemtesa Diet: regular w/ safe tray Code Status: full Dispo: Joceline (2) Hypothyroidism: (3) Chronic kidney disease, stage III (moderate): (4) Bipolar 1 disorder: (5) RLS (restless legs syndrome): (6) Transaminitis: Total Time Total Time Spent Total Time Spent (In Minutes): I did not see the patient today. Discharge Plan Discharge Items Patient Disposition: Transfer Behavioral Health Fac Reason For Visit: OVERDOSE Discharge Diagnosis: intentional overdose Activity: Per Instructions section Non-emergency contact: Primary Care Provider and Psychiatrist Call non-emergency contact if: you have any medication questions and your symptoms worsen Follow-up/Referrals: Rasheed Fraser MD [Physician] - (f/u intentional OD) Jimmy Arceo DO [Primary Care Provider] - Diet: Regular Addtl Attending Provider Instructions: You were admitted to the hospital for an intentional overdose of prescribed medication. Your lab work was monitored and it was noted that your liver fun ction studies were elevated, indicating some degree of damage/injury. You received NAC (N-acetyl cysteine) a medication that is sometimes used when there is a Tylenol overdose and the liver is damaged. Your liver function studies have continued to lower and decrease throughout your hospitalization. From a medical standpoint, you were cleared to proceed to an inpatient psychiatric facility. A discharge summary will be sent to your primary care physician to ensure continuity of care. Please bring this discharge summary with you to your next office appointment so that your provider can review it at that time. Medications: Your medication list has been reviewed and reconciled upon discharge to ensure accuracy and continuity of care. An updated list of all your medications is included with your hospital discharge paperwork. Please review this list closely and make note of any changes to your medications. - Calcium carbonate (Tums) 500 mg and magnesium oxide 800 mg each night prior to bed has been added to your regimen to help with restless legs. - The psychiatry team added wellbutrin (bupropion) to your regimen. This is 75 mg each morning. - Further changes to your psychiatric medications may be made during your inpatient psych stay. Follow up appointments: - Make a follow up appointment with your PCP within the next week. It is very important that you follow up with them shortly after discharge from the hospital. - Keep all of your follow up appointments as already scheduled. If you cannot make an appointment, notify your provider. CONTACT YOUR PRIMARY CARE PROVIDER if you experience any of the following: - Difficulty following your treatment plan - Difficulty taking any of your medications CALL 911 OR GO TO THE EMERGENCY DEPARTMENT if you experience any of the following: - Sudden, severe abdominal pain or nausea/vomiting - Severe chest pain or chest pain that radiates to your jaw or arm - Sudden, severe shortness of breath or difficulty breathing Pending Studies at Discharge: No Stand-Alone Forms: My [facility] Medications and DC Order Prescriptions: Continued hydroxyzine pamoate [Vistaril] 25 mg capsule 25 mg PO TID PRN (Reason: Anxiety) Rx Instructions: 1-2 PRN prazosin 2 mg capsule 3 mg PO HS levothyroxine 50 mcg tablet 50 mcg PO QAM olanzapine [Zyprexa] 10 mg Tablet 10 mg PO HS lorazepam [Ativan] 0.5 mg Tablet 0.5 mg PO TID PRN (Reason: Anxiety) Gemtesa 75 mg tablet 75 mg PO QAM tramadol 50 mg Tablet 50 mg PO HS propranolol 10 mg Tablet 10 mg PO BID 30 Days Qty: 60 0RF clonazepam 0.5 mg Tablet 0.5 mg PO BID 30 Days Qty: 60 0RF Discharge Orders: Discharge Order (Routine); Ordered 02/06/23 Ordered By: Vera Aparicio Admission Data Admit Date/Time: 01/30/23 19:35 Attending Provider: King Mckeon Admit Provider: Helen Cooley Primary Care Provider: Jimmy Arceo Other Providers: Gisselle Adkins ; Fabiano Eason ; Bryanna Dinero ; Joan Harris ; Geovanni Amin Other Interventions: Discharge Summary Assessment (RN) Last Done: 02/06/23 03:15 Supervising Physician Co-Signing Physician Notes ATTESTATION I reviewed the discharge summary as completed by the resident physician and agree with the above. [facility] and transferred prior to being seen today. Additional per resident documentation Resident Activity Tracking Resident Involvement: Resident Care Provided Care Provided: Adult Hospital Medicine
[2023-02-06] MEDS ORDERED: buPROPion HCl 75 MG TABLET PO SCH (09:00)
== END 2023-02-06 08:13 | DRG 918 ==
LOC: ED 14:06 → 2E 19:35 → SUATTDRO 19:35 → 2E 21:30 → 3N 01-31 22:50